=== PATIENT | male | born 1955 | race African-American/Black ===

== ENCOUNTER 2020-08-01 06:14 | Outpatient (REF) | payer MEDICARE, MEDICAID, SELFPAY | END 2020-08-01 06:15 | disposition home or self-care (01) | LOC: HO.LAB 06:14 | PROVIDERS: Visit Provider Internal Medicine | DX: Z20.828 Contact with and (suspected) exposure to other viral communicable diseases (principal) | CPT/HCPCS: C9803; U0003 ==

== ENCOUNTER 2020-08-07 11:26 | Outpatient (REF) | payer MEDICARE, MEDICAID, SELFPAY ==
--- NOTE | 2020-08-07 11:33 | XR_ITS ---
EXAMINATION: XR SHOULDER, LEFT CLINICAL INFORMATION: Left shoulder pain COMPARISON: 09/06/2018 TECHNIQUE: Three views of the left shoulder. FINDINGS: There is marked deformity of left proximal humerus and glenoid. There is remodeling of the articular surface of the humeral head and widening and flattening of the articular surface of the glenoid. There are erosive changes with joint space narrowing and multiple loose bodies. There is narrowing of the acromiohumeral interval. I suspect an erosion or geode in the region of the base of the coracoid. XR/XR shoulder LT min 2V IMPRESSION: Marked remodeling deformity with arthritic changes and loose bodies around the glenohumeral joint. There is interval worsening.
== END 2020-08-07 11:27 | disposition home or self-care (01) ==
LOC: HO.XRAY 11:26
PROVIDERS: PCP Family Medicine; Visit Provider Family Medicine
DX: M25.512 Pain in left shoulder (principal)
CPT/HCPCS: 73030

== ENCOUNTER 2020-08-08 15:33 | Outpatient (REF) | payer MEDICARE, MEDICAID, SELFPAY ==
--- NOTE | 2020-08-08 15:54 | XR_ITS ---
EXAMINATION: XR CHEST CLINICAL INFORMATION: Cough COMPARISON: November 26, 2014 TECHNIQUE: 2 views of the chest were obtained. FINDINGS: No significant abnormality is noted involving the heart, lungs, mediastinum, or soft tissues. There is prominent spurring about the thoracic spine. There is severe degenerative change involving both shoulders. XR/XR chest 2V IMPRESSION: No acute disease.
== END 2020-08-08 15:34 | disposition home or self-care (01) ==
LOC: HO.XRAY 15:33
PROVIDERS: PCP Family Medicine; Visit Provider Registered Nurse
DX: R05 Cough (principal); R09.89 Other specified symptoms and signs involving the circulatory and respiratory systems
CPT/HCPCS: 71046

== ENCOUNTER 2020-08-09 06:24 | Outpatient (REF) | payer MEDICARE, MEDICAID, SELFPAY | END 2020-08-09 06:25 | disposition home or self-care (01) | LOC: HO.LAB 06:24 | PROVIDERS: PCP Family Medicine; Visit Provider Internal Medicine | DX: Z20.828 Contact with and (suspected) exposure to other viral communicable diseases (principal) | CPT/HCPCS: C9803; U0003 ==

== ENCOUNTER 2020-10-14 09:11 | Outpatient (REF) | payer MEDICARE, MEDICAID, SELFPAY | END 2020-10-14 09:12 | disposition home or self-care (01) | LOC: HO.LAB 09:11 | PROVIDERS: PCP Family Medicine; Visit Provider Internal Medicine | DX: Z20.822 Contact with and (suspected) exposure to COVID-19 (principal) | CPT/HCPCS: 36415; C9803; U0003; U0005 ==

== ENCOUNTER 2020-12-18 09:03 | Outpatient (REF) | payer MEDICARE, MEDICAID, SELFPAY | END 2020-12-18 09:04 | disposition home or self-care (01) | LOC: HO.CT 09:03 | PROVIDERS: Visit Provider Family Medicine | DX: Z13.89 Encounter for screening for other disorder (principal) ==

== ENCOUNTER 2020-12-20 08:38 | Outpatient (REF) | payer MEDICARE, MEDICAID, SELFPAY ==
--- NOTE | ~2020-12-20 | CT_ITS ---
EXAMINATION: CT HEAD WITHOUT CONTRAST CLINICAL INFORMATION: Headaches. COMPARISON: CT brain 02/01/2020 TECHNIQUE: Contiguous axial imaging was performed from the skull base to vertex without intravenous administration of contrast. This CT examination was performed using dose optimization techniques as appropriate, variously including the following: Automated exposure control Adjustment of mA and/or kV according to patient size (this includes techniques or standardized protocols for targeted exams where dose is matched to indication/reason for exam; i.e. extremities or head) Use of iterative reconstruction technique. DLP: 864 mGy-cm FINDINGS: There is no evidence of acute intracranial hemorrhage or territorial infarction. No abnormal mass effect or midline shift is seen. Jim to white matter differentiation is well preserved. No extra-axial fluid collections are identified. Lateral ventricles are enlarged and so are the cortical sulci. There is mild periventricular hypodensity without mass effect in both cerebral hemispheres. There is partial opacification of right maxillary sinus with air-fluid level. Rest of the paranasal sinuses and mastoid air cells are well aerated. No calvarial abnormality seen. The scalp soft tissues are normal. CT/CT head/brain wo con IMPRESSION: No acute intracranial process seen. Age-related cerebral volume loss with chronic small vessel ischemic changes. Acute on chronic right maxillary sinus inflammatory changes.
== END 2020-12-20 08:39 | disposition home or self-care (01) ==
LOC: HO.CT 08:38
PROVIDERS: PCP Family Medicine; Visit Provider Family Medicine
DX: R51.9 Headache, unspecified (principal)
CPT/HCPCS: 70450

== ENCOUNTER 2021-02-19 19:09 | Emergency (ER) | payer OTHER, MEDICARE, MEDICAID, SELFPAY ==
--- NOTE | ~2021-02-19 | XR_ITS ---
EXAMINATION: XR ANKLE, RIGHT CLINICAL INFORMATION: Pain in lateral malleolus COMPARISON: None TECHNIQUE: 3 views of the right ankle. FINDINGS: Soft tissue swelling at lateral malleolus. No fracture. No dislocation. Ankle mortise is congruent. There is a plantar calcaneal spur measuring 1.8 cm. XR/XR ankle RT min 3V IMPRESSION: Soft tissue swelling at lateral malleolus. No acute osseous abnormality of the ankle.
--- NOTE | ~2021-02-19 | CT_ITS ---
EXAMINATION: CT HEAD WITHOUT CONTRAST CLINICAL INFORMATION: EtOH COMPARISON: CT head 02/01/2020 TECHNIQUE: Contiguous axial imaging was performed from the skull base to vertex without intravenous administration of contrast. Coronal and sagittal reformatted images are performed at CT scanner This CT examination was performed using dose optimization techniques as appropriate, variously including the following: *Automated exposure control *Adjustment of mA and/or kV according to patient size (this includes techniques or standardized protocols for targeted exams where dose is matched to indication/reason for exam; i.e. extremities or head) *Use of iterative reconstruction technique DLP: 818 mGy-cm FINDINGS: There is no evidence of acute intracranial hemorrhage or territorial infarction. No abnormal mass effect or midline shift is seen. Jim to white matter differentiation is well preserved. No extra-axial fluid collections are identified. The ventricles are normal in size. There is no abnormal attenuation within the brain parenchyma. The osseous structures and soft tissues are normal. Near-complete opacification of right maxillary sinus. Scattered mucosal thickening in the ethmoid sinuses and inferior frontal sinuses. CT/CT head/brain wo con IMPRESSION: 1. No acute intracranial pathology. 2. Sinus disease.
[2021-02-19 19:14] VITALS: BP 122/87; PULSE 80; O2SAT 99
[2021-02-19 19:19] VITALS: BP 130/77; PULSE 73; RESP 18; TEMP 36.7; O2SAT 97; BMI 26.6
[2021-02-19 22:11] VITALS: BP 139/7; PULSE 76; RESP 18; TEMP 36.6; O2SAT 98
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
[2021-02-19] MEDS: Ibuprofen 600 MG TABLET PO (23:05)
== END 2021-02-20 00:38 | disposition home or self-care (01) ==
PROVIDERS: Emergency Provider Emergency Medicine
DX: Z04.1 Encounter for examination and observation following transport accident (principal); M25.572 Pain in left ankle and joints of left foot
CPT/HCPCS: 70450; 73610; 99284

== ENCOUNTER 2021-04-25 08:52 | Outpatient (REF) | payer MEDICARE, MEDICAID, SELFPAY ==
--- NOTE | 2021-04-30 10:16 | MHC.AU.HAS ---
Hearing Aid Evaluation Date of Visit: 04/25/21 Historical Information: Description of Hearing: Right: Borderline to moderate sensorineural hearing loss Left: Borderline to moderately-severe sensorineural hearing loss Summary: Patient was seen for audiological evaluation (see separate chart for details). Patient is interested in amplification. Options were discussed. Hearing Aid Prescription: Based on the individual?s shared listening needs, communication environments, dexterity, desire for connectivity, and personal preferences, the following prescription for amplification has been made: Right ear: Client Service Representative: Phonak Model: Audeo P70-R Battery Size: Rechargeable Color: P1 Electrical System Specialist: 1M Left ear: Client Service Representative: Phonak Model: Audeo P70-R Battery Size: Rechargeable Color: P1 Electrical System Specialist: 1M Action Taken/Action Needed: Medical Clearance to be requested from PCP/ENT Patient will be contacted when materials have arrived. Primary Diagnosis: H90.3 Bilateral Sensorineural Hearing Loss Signature: Provider: Laura Perez, [facility]
--- NOTE | 2021-04-30 10:16 | MHC.AU.AEV ---
Adult Audiological Evaluation Date of Visit: 04/25/21 Reason for Appointment: Patient has been experiencing hearing difficulties at home. His family has noticed that he often mishears them and needs more frequent repetition. Does patient feel they have a hearing loss?: Yes If Yes, Which Ear?: Both Ears Has hearing been tested previously?: No Hearing Handicap Inventory Does a hearing problem cause you to feel embarrassed when meeting new people?: Yes Does a hearing problem cause you to feel frustrated when talking to members of your family?: Yes Do you have difficulty when someone speaks in a whisper?: Yes Do you feel handicapped by a hearing problem?: Yes Does a hearing problem cause you difficulty when visiting friends, relatives, or neighbors?: Yes Does a hearing problem cause you to attend tenriism service services less often than you would like?: No Does a hearing problem cause you to have arguments with family members?: Yes Does a hearing problem cause you difficulty when listening to TV or radio?: Yes Do you feel that any difficult with your hearing limits or hampers your personal or social life?: Yes Does a hearing problem cause you difficulty when in a restaurants with relatives or friends?: Yes HHIE SCORE: 36 Based on HHIE score, patient has: Severe perceived hearing handicap Ear History: Ear Deformity: None Reported Recent Ear Drainage: None Reported Recent Ear Pain: Left Ear Family History of Hearing Loss?: No Recent Ear Infections: None Reported Ear Infections in Childhood: None Reported History of Ear Wax Buildup: None Reported Previous Ear Surgery: None Reported Bothersome Tinnitus/Ringing/Noises in Ears: None Reported Ear used on the phone: Left Ear Blocked/Full Sensation in Ear(s): None Reported 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 History: No Medical History: Medical History: History of head injury, memory concerns Otoscopy: Right Ear: Unremarkable Left Ear: Unremarkable Tympanometry: Tympanometry performed due to: To assess integrity of the middle ear system Right Ear: Normal Middle Ear System (Type A) Left Ear: Normal Middle Ear System (Type A) Hearing Evaluation: Transducer(s) Used: Insert Earphones Method: Conventional Audiometry Stimuli Used: Pure Tones Right Ear: Description of Hearing: Borderline to moderate sensorineural hearing loss Left Ear: Description of Hearing: Borderline to moderately-severe sensorineural hearing loss Speech Recognition Threshold (SRT): Method Used: Recorded Lists Stimuli Used: Spondee Words Right Ear: 30 dBHL Left Ear: 40 dBHL Word Discrimination: Method: Recorded Lists Word Lists Used:: W-22 Right Ear: 88% at 70 dBHL Left Ear: 68% at 70 dBHL Most Comfortable Level (MCL): Right Ear: 70 dBHL Left Ear: 70 dBHL Recommendations: Audiological re-evaluation in one year. Trial with amplification is recommended. See Hearing Aid Evaluation report for more information. Referral to Ear, Nose, and Throat is recommended to address sensorineural asymmetry (left ear worse). Diagnosis: Primary Diagnosis: H90.3 Bilateral Sensorineural Hearing Loss Signature: Provider: Laura Perez, CCC-A
--- NOTE | 2021-04-30 10:18 | MHC.AU.MED ---
Medical Clearance for Hearing Instrumentation Date: 04/30/21 Patient Name: Iván Yanez III Date of : 1955 Primary Care Provider: Karmen Girard DO Referring Provider: Karmen Girard DO We have seen your patient on 04/25/21 and have determined that they are a candidate for amplification (See accompanying report). Specifically, they would benefit from: Hearing aid use in both ears There is a statute that addresses Medical Evaluation Requirements prior to fitting a patient with a hearing aid. According to [place] statute 265 CMR:6.03(1), (a) General. Except as provided in 265 CMR 6.03(1)(b), a chemistry physics teacher shall not sell a hearing aid unless the prospective user has presented to the chemistry physics teacher a written statement signed by a licensed physician that states that the patient's hearing loss has been medically evaluated and the patient may be considered a candidate for a hearing aid. The medical evaluation must have taken place within the preceding six months. Please note: Due to the [place] Statute referenced above, we cannot accept a signature other than that of a licensed physician. PEER TUTOR and PA signatures cannot be accepted. I am in agreement with the above recommendation. There is no medical contraindication for hearing instrumentation. Physician Signature Date Physician Name (Printed)
== END 2021-04-25 08:53 | disposition home or self-care (01) ==
LOC: HO.SH 08:52
PROVIDERS: PCP Family Medicine; Visit Provider Family Medicine
DX: H90.3 Sensorineural hearing loss, bilateral (principal)
CPT/HCPCS: 92557; 92567; 92591

== ENCOUNTER 2021-05-29 10:36 | Outpatient (REF) | payer MEDICARE, MEDICAID, SELFPAY ==
--- NOTE | 2021-05-30 08:22 | MHC.AU.HFA ---
Hearing Instrument Fitting- Adult- Binaural Date of Visit: 05/29/21 Hearing Instruments Dispensed: Right Ear: Hand Woven Carpet And Rug Mender: Phonak Model: Audeo P70-R Serial Number: [id number] Repair Warranty: 08/09/2024 Loss and Damage Warranty: 08/09/2024 Service Plan: 05/29/2022 Battery Size: Rechargeable Color: P1 Relief Pilot: 1M Type of Dome: Small Vented Dome Type of Wax Guard: CeruShield Left Ear: Hand Woven Carpet And Rug Mender: Phonak Model: Audeo P70-R Serial Number: [id number] Repair Warranty: 08/09/2024 Loss and Damage Warranty: 08/09/2024 Service Plan: 05/29/2022 Battery Size: Rechargeable Color: P1 Relief Pilot: 1M Type of Dome: Small Vented Dome Type of Wax Guard: CeruShield Summary of Fitting: Feedback credit manager run. Verifit performed and levels adjusted to better reach targets. Target gain set to 95%, as patient felt 100% was slightly too loud. Patient reported the sound was comfortable and clear. Hearing aid care and use were discussed and practiced. Hearing aids were paired to the patient's phone. Recommendations: Recommendations: A hearing instrument follow-up is recommended in 2-3 weeks. Diagnosis Code(s): Primary Diagnosis: H90.3 Bilateral Sensorineural Hearing Loss Signature: Provider: Laura Perez, [facility]
== END 2021-05-29 10:37 | disposition home or self-care (01) ==
LOC: HO.HAP 10:36
PROVIDERS: Visit Provider Family Medicine
DX: Z46.1 Encounter for fitting and adjustment of hearing aid (principal); H90.3 Sensorineural hearing loss, bilateral
CPT/HCPCS: V5011; V5020; V5160; V5261

== ENCOUNTER → 2021-06-12 11:51 | Outpatient (BNVA) | payer MEDICARE, MEDICAID, SELFPAY | PROVIDERS: PCP Family Medicine; Visit Provider Urology | DX: C61 Malignant neoplasm of prostate (principal) | CPT/HCPCS: Q3014 ==

== ENCOUNTER 2021-07-02 11:06 | Outpatient (REF) | payer MEDICARE, MEDICAID, SELFPAY ==
--- NOTE | 2021-07-02 13:26 | MHC.AU.HFU ---
Hearing Instrument Follow-Up- Binaural Date of Visit: 07/02/21 Right Ear: Radiator Tester: Phonak Model: Audeo P70-R Serial Number: [id number] Repair Warranty: 08/09/2024 Loss and Damage Warranty: 08/09/2024 Service Plan: 05/29/2022 Battery Size: Rechargeable Color: P1 Liquor Merchant: 1M Type of Dome: Small Vented Dome Type of Wax Guard: CeruShield Left Ear: Radiator Tester: Phonak Model: Audeo P70-R Serial Number: [id number] Repair Warranty: 08/09/2024 Loss and Damage Warranty: 08/09/2024 Service Plan: 05/29/2022 Battery Size: Rechargeable Color: P1 Liquor Merchant: 1M Type of Dome: Small Vented Dome Type of Wax Guard: CeruShield Follow-Up Summary: Patient reports that he accidentally lost the left hearing aid. He had placed it in his pocket and was unable to find it after a thorough search of his residence and clothes. He also reports that the right hearing aid is not working. He does not see the light go on in the weigher and charger. The right hearing aid was inspected. There was no charge in the instrument. It was placed in a stock weigher and charger for several minutes. The light did turn on when it was in the stock weigher and charger, and the hearing aid was able to turn on after charging for a few minutes. It is uncertain if the instrument was not charging at home because of a problem with the charging unit, or if perhaps it had come unplugged at home or the patient was placing it in the weigher and charger incorrectly. A constant static noise was being emitted from the instrument when it was turned on. A livestock dealer was tried, but it still produced the sound. The right hearing aid will be sent for repair. A loss and damage form was filled out for the left hearing aid and e-mailed to [employer]. Recommendations: When the repaired right instrument and replacement left instrument have arrived, patient can be contacted to schedule an appointment. It is highly recommended that he bring his weigher and charger to the next visit so we can determine whether or not there is a problem with the weigher and charger. Diagnosis Code(s): Primary Diagnosis: H90.3 Bilateral Sensorineural Hearing Loss Signature: Provider: Laura Perez, [facility]
== END 2021-07-02 11:07 | disposition home or self-care (01) ==
LOC: HO.HAP 11:06
PROVIDERS: Visit Provider Family Medicine
DX: Z13.89 Encounter for screening for other disorder (principal)

== ENCOUNTER 2021-07-21 12:35 | Outpatient (REF) | payer MEDICARE, MEDICAID, SELFPAY | END 2021-07-21 12:36 | disposition home or self-care (01) | LOC: HO.HAP 12:35 | PROVIDERS: Visit Provider Family Medicine | DX: Z13.89 Encounter for screening for other disorder (principal) ==

== ENCOUNTER → 2021-07-29 15:05 | Outpatient (BNVA) | payer MEDICARE, MEDICAID, SELFPAY | PROVIDERS: PCP Family Medicine; Visit Provider Urology | DX: Z13.89 Encounter for screening for other disorder (principal) | CPT/HCPCS: Q3014 ==

== ENCOUNTER 2021-10-02 12:15 | Emergency (ER) | payer MEDICARE, MEDICAID, SELFPAY ==
--- NOTE | ~2021-10-02 | XR_ITS ---
EXAMINATION: XR SHOULDER, LEFT CLINICAL INFORMATION: Fall with pain COMPARISON: Left shoulder x-rays 08/07/2020 TECHNIQUE: 3 views of the left shoulder. FINDINGS: Minimally displaced fracture of the left humeral neck. There is approximately 1.5 cm of impaction with less than 1 cm of lateral offset of the distal fracture fragment. The left humeral head continues to demonstrate good articulation with the glenoid fossa, however, there are severe chronic arthritic changes and remodeling deformities of the left glenohumeral joint with several associated loose bodies. The left acromioclavicular joint demonstrates only mild degenerative changes. Visualized left-sided ribs and lung parenchyma are unremarkable. XR/XR shoulder LT min 2V IMPRESSION: Left humeral neck fracture.
[2021-10-02 12:34] VITALS: BP 124/72; PULSE 67; RESP 18; TEMP 37.2; O2SAT 98; BMI 25.8
--- NOTE | 2021-10-02 12:46 | ED_ITS ---
HPI - Fall General Chief Complaint: Fall Stated Complaint: Fall/shoulder pain Time Seen by Provider: 10/02/21 12:46 Source: patient and family Mode of arrival: ambulatory Limitations: no limitations History of Present Illness HPI Narrative: 66-year-old male here with reports of left shoulder pain after a trip and fall which occurred earlier today. Patient tells me he was walking on the street when he tripped over something on the ground landing on the left shoulder. There was no hitting of the head or loss of consciousness. Patient denies any weakness, numbness, tingling, warmth or redness Related Data Home Medications Medication Instructions Recorded Confirmed atorvastatin 20 mg tablet mg PO 06/12/21 06/12/21 fluticasone propionate 50 INTRANASAL 06/12/21 06/12/21 mcg/actuation nasal spray,suspension hydroxyzine pamoate 25 mg capsule mg PO 06/12/21 06/12/21 metoprolol succinate 50 mg mg PO 06/12/21 06/12/21 tablet,extended release 24 hr naloxone 4 mg/actuation nasal INTRANASAL 06/12/21 06/12/21 spray (Narcan) oxycodone-acetaminophen 5 mg-325 tab PO 06/12/21 06/12/21 mg tablet sertraline 50 mg tablet mg PO 06/12/21 06/12/21 tamsulosin 0.4 mg capsule mg PO 06/12/21 06/12/21 timolol maleate 0.5 % eye drops drp OPHTHALMIC (EYE) 06/12/21 06/12/21 Previous Rx's Medication Instructions Recorded ibuprofen 600 mg tablet 600 mg PO TID PRN #14 tab 02/20/21 bicalutamide 50 mg tablet 50 mg PO DAILY 30 Days #30 tab 03/25/21 naproxen 500 mg tablet 500 mg PO BID PRN #20 tab 10/02/21 Allergies Allergy/AdvReac Type Severity Reaction Status Date / Time codeine [CODEINE] Allergy Unknown BECOMES Verified 07/29/21 15:08 HYPER, ITCHY, itching Codeine Sulfate Allergy Unknown Unknown Uncoded 07/29/21 15:08 Review of Systems Verdana 4l Review of Systems: Yes all other systems are reviewed and Verdana 4d are negative Verdana 4l Constitutional: Verdana 4d Constitutional: Verdana 4d Verdana 4d Reports no additional constitutional complaints, Denies body ache(s), Denies chills, Denies fever(s), Denies headache(s) and Denies weakness Verdana 4l Eyes: Verdana 4d Verdana 4d Eyes: Verdana 4d Reports no additional eye complaints and Denies change in vision Verdana 4l ENT: Verdana 4d Reports system reviewed and no additional complaints, except as documented, Denies dizziness, Denies headache(s), Denies nasal congestion, Denies nasal discharge and Denies neck pain Verdana 4l Cardiovascular: Verdana 4d Cardiovascular: Verdana 4d Verdana 4d Reports no additional cardiovascular complaints, Denies chest pain, Denies leg edema and Denies dyspnea Verdana 4l Respiratory: Verdana 4d Verdana 4d Respiratory: Verdana 4d Reports no additional respiratory complaints, Denies cough and Denies dyspnea Verdana 4l Gastrointestinal: Verdana 4d Gastrointestinal: Verdana 4d Verdana 4d Reports no additional gastrointestinal complaints, Denies abdominal pain, Denies diarrhea, Denies nausea and Denies vomiting Verdana 4l Genitourinary: Verdana 4d Verdana 4d Genitourinary: Verdana 4d Denies urinary incontinence Verdana 4l Musculoskeletal: Verdana 4d Musculoskeletal: Verdana 4d Verdana 4d Reports no additional musculoskeletal complaints, Denies back pain, Reports arthralgias, Denies joint swelling, Reports limited range of motion, Denies neck pain, Denies numbness and Denies tingling Verdana 4l Integumentary/Breasts: Verdana 4d Skin/Breast: Verdana 4d Verdana 4d Reports system reviewed and no additional complaints, except as docu and Denies rash Verdana 4l Neurologic: Verdana 4d Reports system reviewed and no additional complaints, except as documented, Denies Abnormal speech present, Denies dizziness, Denies headache(s), Denies numbness, Denies tingling and Denies weakness PMFSH Past Medical History Attestation statement: The following information was validated with the patient. Source: old records reviewed and nursing notes reviewed Medical History HTN (hypertension) Hx of dislocation of shoulder Prostate cancer Seasonal allergies Surgical History History of surgery Social History Social History Advance Directives: No Advance Directives Information Provided: Yes Physical Exam Verdana 4l Vital Signs: Verdana 4d Verdana 4d Vital Signs: Verdana 4d Verdana 4Bd Last Vital Signs Verdana 4d Paralegal Secretary New 4d Paralegal Secretary New 4d Temp 98.9 F 10/02/21 12:34 Paralegal Secretary New 4d Pulse 67 10/02/21 12:34 Paralegal Secretary New 4d Resp 18 10/02/21 12:34 BP 124/72 10/02/21 12:34 Pulse Ox 98 10/02/21 12:34 BMI result Body Mass Index 25.8 Const: General: cooperative, healthy appearing, comfortable and no acute distress Orientation/consciousness: patient oriented x3 Limitations: no limitations HENMT: Head: Yes normal to inspection Ears: hearing grossly normal bilaterally General nose exam: Normal external nose present Face and sinus: Yes normal facial exam Mouth: Normal oral and palatal mucosa present Throat: Yes posterior oropharynx normal Eyes: General: appearance normal, both eyes and all related structures Pupils: Eq ual, round and reactive pupils present Neck: Neck: Yes normal visual inspection Chest: Chest palpation & inspection: normal inspection of the chest Resp: Effort & Inspection: normal respiratory effort Auscultation: clear to auscultation bilaterally Cardio: Rate: regular rate Rhythm: regular rhythm Peripheral pulses: Peripheral pulses 2+ throughout GI: Inspection: Yes normal to inspection Palpation (GI): Soft to palpation and nontender Auscultation: normal bowel sounds Back/Spine/Pelvis: Thoracic/Lumbar Spine: thoracic and lumbar spine normal to inspection Skin: General skin exam: no rashes or lesions noted Neuro: General: patient oriented x3, no focal motor deficits and normal sensation to monofilament Cranial nerves: Yes CN's II-XII intact bilaterally, Yes Equal, round and reactive pupils present, Yes Bilaterally intact EOM present, Yes Nystagmus not present, Yes Normal facial strength present and Yes Midline tongue present Cognition (Neuro): normal cognition Speech: No Abnormal speech present Gait exam (Neuro): Normal gait present Motor exam (neuro): 5/5 motor strength present throughout Sensory Exam: Normal double simultaneous stimulation for sensation Extrem: Other: Tenderness over the anterior shoulder and proximal humerus with limited abduction due to pain. No obvious swelling or deformity. Neurovascular intact distally to the injury General: Yes normal to inspection Course Course Course Narrative: 66-year-old male here with reports of left shoulder pain after trip and a fall which occurred just prior to arrival. Will check x-rays 1445-[id number]-ray show left humeral neck fracture. Patient placed in a sling and have him follow-up with Orthopedics. Reviewed worrisome signs and symptoms with the patient and the family and when to return to the emergency department. Reviewed rice. Comfortable plan for discharge home. Procedures Procedure Narrative Procedure Narrative: Sling MDM - Fall Medical Records Attestation: I reviewed the patient's medical records. Lab Data Attestation: I reviewed the patient's lab results. Imaging Data shoulder xray: Attestation: I personally reviewed and interpreted this imaging study as follows: Radiologist's impression: FINDINGS: Minimally displaced fracture of the left humeral neck. There is approximately 1.5 cm of impaction with less than 1 cm of lateral offset of the distal fracture fragment. The left humeral head continues to demonstrate good articulation with the glenoid fossa, however, there are severe chronic arthritic changes and remodeling deformities of the left glenohumeral joint with several associated loose bodies. The left acromioclavicular joint demonstrates only mild degenerative changes. Visualized left-sided ribs and lung parenchyma are unremarkable. XR/XR shoulder LT min 2V IMPRESSION: Left humeral neck fracture. Discharge Plan Discharge Clinical Impression: Fracture, humerus closed Patient Disposition: Home, Self-Care Instructions: Arm Fracture in Adults (ED), How to Use a Sling (ED) Additional Instructions: Use a sling for comfort Ice to the area Limit use of the left arm Follow-up with Orthopedics Alternate Tylenol with naproxen for pain Prescriptions: New naproxen 500 mg tablet 500 mg PO BID PRN (Reason: pain) Qty: 20 0RF No Action bicalutamide 50 mg tablet 50 mg PO DAILY 30 Days Qty: 30 1RF ibuprofen 600 mg tablet 600 mg PO TID PRN (Reason: pain) Qty: 14 0RF hydroxyzine pamoate 25 mg capsule PO 0RF sertraline 50 mg tablet PO 0RF fluticasone propionate 50 mcg/actuation spray,suspension intranasal 0RF tamsulosin 0.4 mg capsule PO 0RF metoprolol succinate 50 mg tablet extended release 24 hr PO 0RF atorvastatin 20 mg tablet PO 0RF timolol maleate 0.5 % drops ophthalmic (eye) 0RF Narcan 4 mg/actuation spray,non-aerosol intranasal 0RF oxycodone-acetaminophen 5-325 mg tablet PO 0RF Referrals: Hermilo Friend MD [Physician] - 2 days Interventions: ED Discharge Assessment Last Done: 10/02/21 14:19 Discharge Date/Time: 10/02/21 14:21
== END 2021-10-02 14:21 | disposition home or self-care (01) ==
PROVIDERS: Emergency Provider Emergency Medicine; PCP Family Medicine
DX: S42.212A Unspecified displaced fracture of surgical neck of left humerus, initial encounter for closed fracture (principal); W01.198A Fall on same level from slipping, tripping and stumbling with subsequent striking against other object, initial encounter; Y93.01 Activity, walking, marching and hiking; Y92.480 Sidewalk as the place of occurrence of the external cause; Y99.9 Unspecified external cause status
CPT/HCPCS: 73030; 99284

== ENCOUNTER 2021-10-03 17:40 | Inpatient (IN) | payer MEDICARE, MEDICAID, SELFPAY ==
--- NOTE | ~2021-10-03 | US_ITS ---
EXAMINATION: US VENOUS WITH DOPPLER UPPER EXTREMITY, LEFT CLINICAL INFORMATION: Left upper arm swelling. COMPARISON: None TECHNIQUE: Ultrasound of the upper extremity is performed using compression sonography and color and pulse Doppler flow with assessment of augmentation of flow. There is also imaging and Doppler assessment of the jugular and subclavian veins. Spectral analysis with color-flow imaging is performed. FINDINGS: Respiratory variation, normal compression, and augmented flow are noted throughout the upper extremity including the axillary, and brachial veins. Please note that the basilic, cephalic and ulnar veins are not well-visualized accordingly not evaluated. There is normal flow in the internal jugular and subclavian veins. There is no visible deep or superficial thrombophlebitis. If the patient's symptoms progress, a followup ultrasound in 5 -7 days might be of value to exclude proximal propagation from a nonvisualized distal arm vein. US/US venous duplex UE LT IMPRESSION: No DVT demonstrated in the left upper extremity. Please note that the basilic, cephalic and ulnar veins are not well-visualized accordingly not evaluated.
--- NOTE | ~2021-10-03 | XR_ITS ---
EXAMINATION: XR CHEST CLINICAL INFORMATION: Shortness of breath. COMPARISON: Chest radiograph dated from 08/08/2020. TECHNIQUE: AP view of the chest was obtained. FINDINGS: Normal appearance of the cardiomediastinal silhouette. No focal airspace opacities, pleural effusions or pneumothorax. Severe osteoarthritis of the shoulders. XR/XR chest 1V IMPRESSION: No acute cardiopulmonary findings. Severe osteoarthritis of both shoulders.
--- NOTE | ~2021-10-03 | CT_ITS ---
EXAMINATION: NONCONTRAST HEAD CT NONCONTRAST CERVICAL SPINE CT INDICATION INFORMATION: Altered mental status, fall COMPARISON: 02/19/2021 TECHNIQUE: Separate noncontrast CT examinations of the head and cervical spine were performed. Coronal head CT images and coronal and sagittal cervical spine images were created at the technologist workstation. DLP: 2914 mGy-cm DOSE LOWERING TECHNIQUES: This CT examination was performed using dose optimization techniques as appropriate, variously including the following: - Automated exposure control - Adjustment of mA and/or kV according to patient size (this includes techniques or standardized protocols for targeted exams were dose is matched to indication/reason for exam; i.e. extremities or head) - Use of iterative reconstruction technique FINDINGS: Head: Limited evaluation in some regions due to patient motion artifact. There is no evidence of acute intracranial hemorrhage or territorial infarction. No abnormal mass-effect or midline shift is seen. Jim to white matter differentiation is well preserved. No extra-axial fluid collections are identified. The ventricles are normal in size. There is no abnormal attenuation within the brain parenchyma. The osseous structures and soft tissues are normal. Mucous retention cysts noted in the right maxillary sinus. The mastoid air cells are well-aerated. Cervical spine: Significantly limited detailed evaluation of much of the cervical spine due to motion artifact. There is anatomic alignment of the vertebral bodies and posterior elements. Vertebral body heights are maintained. There is diffuse disc space narrowing throughout the cervical spine with associated degenerative endplate changes. There is moderate multilevel facet arthropathy. No evidence of acute fracture. No prevertebral soft tissue swelling. Visualized portions of the lung apices are unremarkable. The thyroid gland is unremarkable. CT/CT cervical spine wo con IMPRESSION: Significantly limited detailed assessment of regions of the head and cervical spine due to patient motion artifact. While no gross acute abnormality is seen, more subtle pathology cannot be reliably excluded in this setting.
--- NOTE | ~2021-10-03 | XR_ITS ---
EXAMINATION: XR HUMERUS, LEFT CLINICAL INFORMATION: Swelling. Humeral fracture. COMPARISON: October 02, 2021 and August 07, 2020 TECHNIQUE: AP and lateral views of the left humerus. FINDINGS: There is stable appearance in alignment and appearance of a proximal left humeral fracture compared to study of October 02, 2021. There is severe degenerative change with flattening of the humeral head and marginal sclerosis and spurring with subchondral cyst formation about the glenohumeral joint. The lateral view is not true lateral however there does not appear to be a left elbow effusion. XR/XR humerus LT IMPRESSION: Stable alignment of proximal left humeral fracture. Severe degenerative change as described.
--- NOTE | ~2021-10-03 | CT_ITS ---
EXAMINATION: CT HEAD WITHOUT CONTRAST CLINICAL INFORMATION: Altered mental status COMPARISON: 10/04/2021 TECHNIQUE: Contiguous axial imaging was performed from the skull base to vertex without intravenous administration of contrast. This CT examination was performed using dose optimization techniques as appropriate, variously including the following: *Automated exposure control *Adjustment of mA and/or kV according to patient size (this includes techniques or standardized protocols for targeted exams where dose is matched to indication/reason for exam; i.e. extremities or head) *Use of iterative reconstruction technique DLP: 818 mGy-cm FINDINGS: There is no evidence of acute intracranial hemorrhage or territorial infarction. No abnormal mass effect or midline shift is seen. Jim to white matter differentiation is well preserved. No extra-axial fluid collections are identified. The ventricles are normal in size. Mild volume loss is noted. The osseous structures and soft tissues are normal. There is mild opacification of the right mastoid air cells. Partially opacified bilateral ethmoid air cells. Mucous retention cysts are noted in the right maxillary sinus. Partially opacified left frontal sinus. CT/CT head/brain wo con IMPRESSION: No acute intracranial findings.
[2021-10-03 18:01] VITALS: BP 135/75; PULSE 77; RESP 18; TEMP 37; O2SAT 100; BMI 25.8
[2021-10-03 20:38] LABS: Basophils Percent Auto 0.1 % (0-2); Eosinophils Percent Auto 0.1 % (0-4); Hematocrit 32.6 % (42.0-52.0); Hemoglobin 10.3 g/dl (14.0-18.0); Imm Gran Abs Auto 0.05 X10*3/uL (0.00-0.03); Imm Gran Pct Auto 0.4 % (0.0-0.4); Lymphocytes Absolute Auto 2.5 X10*3/uL (1.2-4.9); Lymphocytes Percent Auto 17.4 % (20-40); MANUAL DIFF FLAG SCAN; Mean Corpuscular HGB Conc 31.6 g/dl (31.0-36.0); Mean Corpuscular Hemoglobin 28.8 pg (27.0-33.0); Mean Corpuscular Volume 91.1 fL (80.0-98.0); Mean Platelet Volume 9.7 fL (9.4-12.4); Monocytes Percent Auto 14.4 % (2-11); Neutrophils Absolute Auto 9.6 x10*3/uL (2.0-8.3); Neutrophils Percent Auto 67.6 % (45-73); Platelet Count 206 X10*3/uL (160-400); Red Blood Count 3.58 X10*6/uL (4.60-5.80); SCAN SMEAR FLAG 1; White Blood Count 14.2 X10*3/uL (4.8-10.8)
[2021-10-03 20:56] LABS: SLIDE REVIEW VERIFIED
--- NOTE | 2021-10-03 21:47 | PC.NURSE ---
difficult lab draw
--- NOTE | 2021-10-03 23:23 | ED_ITS ---
HPI - Altered Mental Status General Chief Complaint: Altered Mental Status Stated Complaint: confusion since yesterday fall Time Seen by Provider: 10/03/21 18:03 History of Present Illness HPI narrative: 66-year-old male with a long history of alcohol abuse. Patient fell yesterday. Subsequently had not been drinking alcohol for at least the last 24 hours. Patient suffered a proximal humerus fracture. Unsure about head injury. No coughing no congestion or upper respiratory symptoms. Patient not immunized for COVID. Patient from home. No fever no chills. Son noticed patient more confused than usual. Hallucinating things in his hands things touching him when it does not exist. Noticing PE patient has been talking to people that are not there. This is new. Son also notice patient more shaky than usual. Related Data Home Medications Medication Instructions Recorded Confirmed atorvastatin 20 mg tablet mg PO 06/12/21 06/12/21 fluticasone propionate 50 INTRANASAL 06/12/21 06/12/21 mcg/actuation nasal spray,suspension hydroxyzine pamoate 25 mg capsule mg PO 06/12/21 06/12/21 metoprolol succinate 50 mg mg PO 06/12/21 06/12/21 tablet,extended release 24 hr naloxone 4 mg/actuation nasal INTRANASAL 06/12/21 06/12/21 spray (Narcan) oxycodone-acetaminophen 5 mg-325 tab PO 06/12/21 06/12/21 mg tablet sertraline 50 mg tablet mg PO 06/12/21 06/12/21 tamsulosin 0.4 mg capsule mg PO 06/12/21 06/12/21 timolol maleate 0.5 % eye drops drp OPHTHALMIC (EYE) 06/12/21 06/12/21 Previous Rx's Medication Instructions Recorded ibuprofen 600 mg tablet 600 mg PO TID PRN #14 tab 02/20/21 bicalutamide 50 mg tablet 50 mg PO DAILY 30 Days #30 tab 03/25/21 naproxen 500 mg tablet 500 mg PO BID PRN #20 tab 10/02/21 Allergies Allergy/AdvReac Type Severity Reaction Status Date / Time codeine [CODEINE] Allergy Unknown BECOMES Verified 07/29/21 15:08 HYPER, ITCHY, itching Codeine Sulfate Allergy Unknown Unknown Uncoded 07/29/21 15:08 Review of Systems Verdana 4l Review of Systems: Verdana 4d Positive altered mental Verdana 4d status positive shakiness positive palpitation positive confusion unable to obtain full review systems secondary to patient's condition Verdana 4d [facility] Past Medical History Attestation statement: The following information was validated with the patient. Medical History HTN (hypertension) Hx of dislocation of shoulder Prostate cancer Seasonal allergies Surgical History History of surgery Social History Social History Advance Directives: No Advance Directives Information Provided: No Physical Exam Verdana 4l Vital Signs: Verdana 4d Verdana 4d Vital Signs: Verdana 4d Verdana 4Bd Last Vital Signs Verdana 4d Sas Clinical Programmer New 4d Sas Clinical Programmer New 4d Temp 98.6 F 10/03/21 18:01 Sas Clinical Programmer New 4d Pulse 89 10/04/21 00:35 Sas Clinical Programmer New 4d Resp 14 10/04/21 00:35 BP 146/67 H 10/04/21 00:35 Pulse Ox 97 10/04/21 00:35 BMI result Body Mass Index 25.8 Appearance: Alert. Oriented to self. No acute distress. Eyes: Pupils equal, round and reactive to light. ENT: Pharynx normal. Neck: Normal inspection. Neck supple. No lymph nodes noted. No crepitus CVS: Tachycardic but regular Respiratory: clear breath sounds bilaterally Abdomen: soft nontender, nondistended Skin: Skin warm and dry. Normal skin color. Normal skin turgor. Extremities: No lower extremity edema. Neurovascular intact to all extremities. No Lacerations. No Rash Neuro: oriented to self only. tremors noted bilateral extremity. Positive tactile hallucination. Tremors speech. MDM - Altered Mental Status MDM Narrative Medical decision making narrative: Creatinine elevated at 2.28 slightly higher than baseline 1.8. Patient's sodium was 128. Patient has a long history of alcohol abuse. Stop using approximately 24-48 hours ago after suffering a fall and had a humerus fracture. CT scan of the head was grossly negative for any acute evidence of bleeding. CT scan of C-spine is of poor quality but no overt fracture was noted. Patient given Ativan for alcohol withdrawal. Started on phenobarb. Will admit for further evaluation. Differential Diagnosis Differential diagnosis: Likely alcoholic intoxication, altered mental status and delirium Medical Records Attestation: I reviewed the patient's medical records. Lab Data Attestation: I reviewed the patient's lab results. Result diagrams: 10/03/21 20:31 10/04/21 00:16 Labs: Lab Results 10/03/21 10/03/21 10/03/21 Range/Units 20:31 23:27 23:34 WBC 14.2 H (4.8-10.8) X10*3/uL RBC 3.58 L (4.60-5.80) X10*6/uL Hgb 10.3 L (14.0-18.0) g/dl Hct 32.6 L (42.0-52.0) % MCV 91.1 (80.0-98.0) fL MCH 28.8 (27.0-33.0) pg MCHC 31.6 (31.0-36.0) g/dl RDW 14.0 (11.0-16.0) % Plt Count 206 (160-400) X10*3/uL MPV 9.7 (9.4-12.4) fL Immature Gran % (Auto) 0.4 (0.0-0.4) % Neut % (Auto) 67.6 (45-73) % Lymph % (Auto) 17.4 L (20-40) % Lake % (Auto) 14.4 H (2-11) % Eos % (Auto) 0.1 (0-4) % Baso % (Auto) 0.1 (0-2) % Lymph # (Auto) 2.5 (1.2-4.9) X10*3/uL Lake # (Auto) 2.0 H (0.1-1.2) X10*3/uL Eos # (Auto) 0.0 (0.0-0.4) X10*3/uL Baso # (Auto) 0.0 (0.0-0.2) X10*3/uL Abs Immat Gran (auto) 0.05 H (0.00-0.03) X10*3/uL Absolute Neuts (auto) 9.6 H (2.0-8.3) x10*3/uL Absolute Nucleated RBC 0.000 (0.0-0.012) X10*3/uL Nucleated RBC % (auto) 0.0 (0.0-0.2) /100WBC Smear Tech's Comments VERIFIED PT (9.9-13.0) SEC INR (0.9-1.1) Sodium (135-145) mmol/L Potassium (3.3-5.1) mmol/L Chloride (96-108) mmol/L Carbon Dioxide (22-29) mmol/L Anion Gap (12-20) BUN (9-16) mg/dL Creatinine (0.5-1.4) mg/dL Estim Creat Clear Calc Estimated GFR POC Glucose 102 (60-115) mg/dL Random Glucose (60-115) mg/dL Calcium (8.4-10.2) mg/dL Phosphorus (2.7-4.5) mg/dL Magnesium (1.6-2.6) mg/dL Total Bilirubin (0.0-1.0) mg/dL Direct Bilirubin (0.0-0.5) mg/dL AST (5-37) U/L ALT (0-40) U/L Alkaline Phosphatase (39-117) U/L Ammonia (13-55) umol/L Troponin I High Sens 10.4 (<3.5-35.0) ng/L Total Protein (6.5-8.0) g/dL Albumin (3.5-5.0) g/dL Lipase (8-78) U/L TSH (0.32-4.0) uIU/mL Ethyl Alcohol mg/dL COVID-19 (TIGRE) (Negative) COVID-19 Clin Com 10/03/21 10/03/21 10/03/21 Range/Units 23:34 23:34 23:34 WBC (4.8-10.8) X10*3/uL RBC (4.60-5.80) X10*6/uL Hgb (14.0-18.0) g/dl Hct (42.0-52.0) % MCV (80.0-98.0) fL MCH (27.0-33.0) pg MCHC (31.0-36.0) g/dl RDW (11.0-16.0) % Plt Count (160-400) X10*3/uL MPV (9.4-12.4) fL Immature Gran % (Auto) (0.0-0.4) % Neut % (Auto) (45-73) % Lymph % (Auto) (20-40) % Lake % (Auto) (2-11) % Eos % (Auto) (0-4) % Baso % (Auto) (0-2) % Lymph # (Auto) (1.2-4.9) X10*3/uL Lake # (Auto) (0.1-1.2) X10*3/uL Eos # (Auto) (0.0-0.4) X10*3/uL Baso # (Auto) (0.0-0.2) X10*3/uL Abs Immat Gran (auto) (0.00-0.03) X10*3/uL Absolute Neuts (auto) (2.0-8.3) x10*3/uL Absolute Nucleated RBC (0.0-0.012) X10*3/uL Nucleated RBC % (auto) (0.0-0.2) /100WBC Smear Tech's Comments PT 12.4 (9.9-13.0) SEC INR 1.1 (0.9-1.1) Sodium (135-145) mmol/L Potassium (3.3-5.1) mmol/L Chloride (96-108) mmol/L Carbon Dioxide (22-29) mmol/L Anion Gap (12-20) BUN (9-16) mg/dL Creatinine (0.5-1.4) mg/dL Estim Creat Clear Calc Estimated GFR POC Glucose (60-115) mg/dL Random Glucose (60-115) mg/dL Calcium (8.4-10.2) mg/dL Phosphorus (2.7-4.5) mg/dL Magnesium (1.6-2.6) mg/dL Total Bilirubin (0.0-1.0) mg/dL Direct Bilirubin (0.0-0.5) mg/dL AST (5-37) U/L ALT (0-40) U/L Alkaline Phosphatase (39-117) U/L Ammonia 21 (13-55) umol/L Troponin I High Sens (<3.5-35.0) ng/L Total Protein (6.5-8.0) g/dL Albumin (3.5-5.0) g/dL Lipase (8-78) U/L TSH (0.32-4.0) uIU/mL Ethyl Alcohol mg/dL COVID-19 ([facility]) Negative (Negative) COVID-19 Clin Com See Note 10/04/21 10/04/21 Range/Units 00:16 23:34 WBC (4.8-10.8) X10*3/uL RBC (4.60-5.80) X10*6/uL Hgb (14.0-18.0) g/dl Hct (42.0-52.0) % MCV (80.0-98.0) fL MCH (27.0-33.0) pg MCHC (31.0-36.0) g/dl RDW (11.0-16.0) % Plt Count (160-400) X10*3/uL MPV (9.4-12.4) fL Immature Gran % (Auto) (0.0-0.4) % Neut % (Auto) (45-73) % Lymph % (Auto) (20-40) % Lake % (Auto) (2-11) % Eos % (Auto) (0-4) % Baso % (Auto) (0-2) % Lymph # (Auto) (1.2-4.9) X10*3/uL Lake # (Auto) (0.1-1.2) X10*3/uL Eos # (Auto) (0.0-0.4) X10*3/uL Baso # (Auto) (0.0-0.2) X10*3/uL Abs Immat Gran (auto) (0.00-0.03) X10*3/uL Absolute Neuts (auto) (2.0-8.3) x10*3/uL Absolute Nucleated RBC (0.0-0.012) X10*3/uL Nucleated RBC % (auto) (0.0-0.2) /100WBC Smear Tech's Comments PT (9.9-13.0) SEC INR (0.9-1.1) Sodium 128 L (135-145) mmol/L Potassium 4.2 (3.3-5.1) mmol/L Chloride 100 (96-108) mmol/L Carbon Dioxide 19 L (22-29) mmol/L Anion Gap 13 (12-20) BUN 39 H (9-16) mg/dL Creatinine 2.28 H (0.5-1.4) mg/dL Estim Creat Clear Calc 29.7 Estimated GFR 29 POC Glucose (60-115) mg/dL Random Glucose 101 (60-115) mg/dL Calcium 8.9 (8.4-10.2) mg/dL Phosphorus 2.4 L (2.7-4.5) mg/dL Magnesium 1.6 (1.6-2.6) mg/dL Total Bilirubin 0.8 (0.0-1.0) mg/dL Direct Bilirubin 0.3 (0.0-0.5) mg/dL AST 44 H (5-37) U/L ALT 47 H (0-40) U/L Alkaline Phosphatase 82 (39-117) U/L Ammonia (13-55) umol/L Troponin I High Sens (<3.5-35.0) ng/L Total Protein 7.7 (6.5-8.0) g/dL Albumin 3.8 (3.5-5.0) g/dL Lipase 26 (8-78) U/L TSH 0.95 (0.32-4.0) uIU/mL Ethyl Alcohol < 10 mg/dL COVID-19 ([facility]) (Negative) COVID-19 Clin Com Critical Care Time Critical Care Time Critical Care Time: Yes Total Critical Care Time: 40 Attestation: I have personally provided 40 minutes of critical care time exclusive of time spent on separately billable procedures. Time includes review of lab data, radiology results, discussion with consultants, and monitoring for potential decompensation. Interventions were performed as documented above Discharge Plan Discharge Clinical Impression: Altered mental status, Alcohol withdrawal, Alcohol withdrawal delirium Patient Disposition: Admitted As Inpatient
[2021-10-03 23:30] LABS: Glucose, Whole Blood 102 mg/dL (60-115)
[2021-10-03] MEDS: 0.9 % Sodium Chloride 1,000 ML 999 ML IV (23:50)
[2021-10-03] MEDS: LORazepam 2 MG/ML VIAL IVPUSH (23:50)
[2021-10-04] VITALS (7 sets, daily range): BP systolic 122–154; BP diastolic 54–96; PULSE 69–89; RESP 14–22; O2SAT 95–98
[2021-10-04] LABS: COVID-19 Test Negative (Negative); Troponin-I High Sensitivity 10.4 ng/L (<3.5-35.0)
[2021-10-04 00:07] LABS: INTERNATIONAL NORM RATIO 1.1 (0.9-1.1); Prothrombin Time 12.4 SEC (9.9-13.0)
[2021-10-04 00:43] LABS: Alanine Aminotransferase 47 U/L (0-40); Albumin Level 3.8 g/dL (3.5-5.0); Alkaline Phosphatase 82 U/L (39-117); Anion Gap 13 (12-20); Aspartate Amino Transferase 44 U/L (5-37); Bilirubin Direct 0.3 mg/dL (0.0-0.5); Bilirubin Total 0.8 mg/dL (0.0-1.0); Blood Urea Nitrogen 39 mg/dL (9-16); Calcium 8.9 mg/dL (8.4-10.2); Carbon Dioxide 19 mmol/L (22-29); Chloride 100 mmol/L (96-108); Creatinine Clr Calc Pharmacy 29.7; Estimated Glomerular Filt Rate 29; Glucose Random 101 mg/dL (60-115); Lipase 26 U/L (8-78); Magnesium 1.6 mg/dL (1.6-2.6); Phosphorus 2.4 mg/dL (2.7-4.5); Potassium 4.2 mmol/L (3.3-5.1); Sodium 128 mmol/L (135-145); Total Protein 7.7 g/dL (6.5-8.0)
[2021-10-04 00:58] LABS: Thyroid Stimulating Hormone 0.95 uIU/mL (0.32-4.0)
[2021-10-04 01:04] LABS: Ammonia 21 umol/L (13-55)
[2021-10-04 01:13] LABS: Ethanol < 10 mg/dL
--- NOTE | 2021-10-04 01:31 | ECG_ITS ---
Test Reason : AMS Blood Pressure : / mmHG Vent. Rate : 084 BPM Atrial Rate : 084 BPM P-R Int : 146 ms QRS Dur : 074 ms QT Int : 398 ms P-R-T Axes : 043 042 047 degrees QTc Int : 470 ms Normal sinus rhythm Normal ECG When compared with ECG of 30-NOV-2018 16:18, QT has lengthened Referred By: Salome Correa Electronically Signed By:DENISE FARAH
[2021-10-04] MEDS: LORazepam 2 MG/ML VIAL IVPUSH (01:34)
--- NOTE | 2021-10-04 01:35 | PC.NURSE ---
pt medicated per Mar. Nurse mp notified and aware. Will continue monitor.
[2021-10-04] MEDS: PHENobarbitaL sodium 130 MG/ML VIAL 265 MG IM (01:50)
--- NOTE | 2021-10-04 01:56 | PC.NURSE ---
medicated per Mar.
--- NOTE | 2021-10-04 02:17 | P.HPHOSP_ITS ---
History of Present Illness Date of Service: 10/04/21 Chief Complaint: alcohol withdrawal 66-year-old male with a past medical history of hypertension, hyperlipidemia, prostate cancer, anxiety, depression, BPH presented to the hospital with a chief complaint of alcohol withdrawal. patient has the recent fracture of his left upper extremity; since then he has been not drinking like he used to. We, tremulous and shaky hence brought in with the family to the hospital for possible alcohol withdrawal. At the time of my entry patient already received Ativan and phenobarbital, sleeping, snoring. Spoke to the RN at bedside, reports patient was brought in by the family Will withdrawals. Patient was noted to be confused and hallucinating. ER course: ER team reported that patient noted to be in alcohol withdrawal, started on phenobarb protocol. Also received Ativan. Patient on nasally hallucinating visually. Currently, and cooperative. Also noted to have mild DANO and hyperkalemia. Given normal saline in the ER. Admitted to the hospital for further management PMFSH Medical History HTN (hypertension) Hx of dislocation of shoulder Prostate cancer Seasonal allergies Pertinent family history: reviewed Surgical History History of surgery Social History Advance Directives: No Advance Directives Information Provided: No Meds Allergies Allergy/AdvReac Type Severity Reaction Status Date / Time codeine [CODEINE] Allergy Unknown BECOMES Verified 07/29/21 15:08 HYPER, ITCHY, itching Codeine Sulfate Allergy Unknown Unknown Uncoded 07/29/21 15:08 Active Medications: Current Medications Enoxaparin Sodium (Enoxaparin Sodium 40 Mg/0.4 Ml Syringe) 40 mg SUBCUT Q24H NAKIA Famotidine (Famotidine 20 Mg Tablet) 20 mg PO BID NAKIA Folic Acid (Folic Acid 1 Mg Tablet) 1 mg PO DAILY NAKIA Stop: 10/07/21 08:59 Dextrose/Sodium Chloride (D5ns) 1,000 mls @ 50 mls/hr IVCONT .Q20H NAKIA Medication (No Benzodiazepines) 1 each MISCELLANE DAILY NAKIA Melatonin (Melatonin 3 Mg Tablet) 6 mg PO BEDTIME PRN PRN Reason: Insomnia Multivitamins/Vitamin C (Multivitamin Tablet) 1 tab PO DAILY [facility] Stop: 10/07/21 08:59 Phenobarbital Sodium (Phenobarbital Sodium 130 Mg/Ml Vial) 198 mg IM Q3H NAKIA Stop: 10/04/21 07:31 Senna (Sennosides 8.6 Mg Tablet) 17.2 mg PO BEDTIME PRN PRN Reason: Constipation Sodium Chloride (0.9 % Sodium Chloride Flush 3 Ml Syringe) 3 ml IVFLUSH QSHIFT NAKIA Thiamine HCl (Thiamine Hcl 100 Mg Tablet) 100 mg PO DAILY [facility] Stop: 10/07/21 08:59 Home Medications Medication Instructions Recorded Confirmed Last Taken Type atorvastatin 20 mg PO 06/12/21 06/12/21 Unknown History mg tablet fluticasone INTRANASAL 06/12/21 06/12/21 Unknown History propionate 50 mcg/actuation nasal spray,suspension hydroxyzine mg PO 06/12/21 06/12/21 Unknown History pamoate 25 mg capsule metoprolol mg PO 06/12/21 06/12/21 Unknown History succinate 50 mg tablet,extended release 24 hr naloxone 4 INTRANASAL 06/12/21 06/12/21 Unknown History mg/actuation nasal spray (Narcan) oxycodone-acetami tab PO 06/12/21 06/12/21 Unknown History nophen 5 mg-325 mg tablet sertraline 50 mg mg PO 06/12/21 06/12/21 Unknown History tablet tamsulosin 0.4 mg mg PO 06/12/21 06/12/21 Unknown History capsule timolol maleate drp OPHTHALMIC 06/12/21 06/12/21 Unknown History 0.5 % eye drops (EYE) Physical Exam Verdana 4l Vital Signs and Narrative: Verdana 4d Verdana 4d Vital Signs: Verdana 4d Verdana 4Bd Last Vital Signs Verdana 4d Relief Charge Nurse New 4d Relief Charge Nurse New 4d Temp 98.6 F 10/03/21 18:01 Relief Charge Nurse New 4d Pulse 89 10/04/21 00:35 Relief Charge Nurse New 4d Resp 14 10/04/21 00:35 BP 146/67 H 10/04/21 00:35 Pulse Ox 97 10/04/21 00:35 BMI result Body Mass Index 25.8 Gen: Appears be in no acute distress HEENT: NCAT, dry mucosa. Pulmonary: Vesicular breath sounds, fair air entry CVS: Normal S1-S2 Abdomen: BS+, Soft, Nontender Extremities: Warm well perfused Neuro: Alert and awake. Results Labs CBC and Chem 7: 10/03/21 20:31 10/04/21 00:16 Labs: Laboratory Results - last 24 hr 10/03/21 10/03/21 10/03/21 20:31 23:27 23:34 MCV 91.1 MCH 28.8 MCHC 31.6 RDW 14.0 Plt Count 206 MPV 9.7 Immature Gran % (Auto) 0.4 Neut % (Auto) 67.6 Lymph % (Auto) 17.4 L Rolette % (Auto) 14.4 H Eos % (Auto) 0.1 Baso % (Auto) 0.1 Lymph # (Auto) 2.5 Rolette # (Auto) 2.0 H Eos # (Auto) 0.0 Baso # (Auto) 0.0 Abs Immat Gran (auto) 0.05 H Absolute Neuts (auto) 9.6 H Absolute Nucleated RBC 0.000 Nucleated RBC % (auto) 0.0 Smear Tech's Comments VERIFIED PT INR Anion Gap Estim Creat Clear Calc Estimated GFR POC Glucose 102 Random Glucose Calcium Phosphorus Magnesium Total Bilirubin Direct Bilirubin AST ALT Alkaline Phosphatase Ammonia 21 Total Protein Albumin Lipase TSH Ethyl Alcohol COVID-19 (TIGRE) [employer] Clin Com 10/03/21 10/03/21 10/04/21 23:34 23:34 00:16 MCV MCH MCHC RDW Plt Count MPV Immature Gran % (Auto) Neut % (Auto) Lymph % (Auto) Rolette % (Auto) Eos % (Auto) Baso % (Auto) Lymph # (Auto) Rolette # (Auto) Eos # (Auto) Baso # (Auto) Abs Immat Gran (auto) Absolute Neuts (auto) Absolute Nucleated RBC Nucleated RBC % (auto) Smear Tech's Comments PT 12.4 INR 1.1 Anion Gap 13 Estim Creat Clear Calc 29.7 Estimated GFR 29 POC Glucose Random Glucose 101 Calcium 8.9 Phosphorus 2.4 L Magnesium 1.6 Total Bilirubin 0.8 Direct Bilirubin 0.3 AST 44 H ALT 47 H Alkaline Phosphatase 82 Ammonia Total Protein 7.7 Albumin 3.8 Lipase 26 TSH 0.95 Ethyl Alcohol COVID-19 (TIGRE) Negative COVID-19 Clin Com See Note 10/04/21 23:34 MCV MCH MCHC RDW Plt Count MPV Immature Gran % (Auto) Neut % (Auto) Lymph % (Auto) Rolette % (Auto) Eos % (Auto) Baso % (Auto) Lymph # (Auto) Rolette # (Auto) Eos # (Auto) Baso # (Auto) Abs Immat Gran (auto) Absolute Neuts (auto) Absolute Nucleated RBC Nucleated RBC % (auto) Smear Tech's Comments PT INR Anion Gap Estim Creat Clear Calc Estimated GFR POC Glucose Random Glucose Calcium Phosphorus Magnesium Total Bilirubin Direct Bilirubin AST ALT Alkaline Phosphatase Ammonia Total Protein Albumin Lipase TSH Ethyl Alcohol < 10 COVID-19 (TIGRE) COVID-19 Clin Com Imaging Radiologist's Impressions: Impressions Chest X-Ray 10/04/21 00:08 IMPRESSION: No acute cardiopulmonary findings. Severe osteoarthritis of both shoulders. Cervical Spine CT 10/04/21 00:50 IMPRESSION: Significantly limited detailed assessment of regions of the head and cervical spine due to patient motion artifact. While no gross acute abnormality is seen, more subtle pathology cannot be reliably excluded in this setting. Head CT 10/04/21 00:50 IMPRESSION: Significantly limited detailed assessment of regions of the head and cervical spine due to patient motion artifact. While no gross acute abnormality is seen, more subtle pathology cannot be reliably excluded in this setting. Assessment and Plan (1) Alcohol withdrawal: Status: Acute Plan 66-year-old male with a past medical history of hypertension, hyperlipidemia, prostate cancer, anxiety, depression, BPH presented to the hospital with a chief complaint of alcohol withdrawals. alcohol withdrawal : Patient was started on phenobarb protocol. Continue thiamine folate and multivitamins. Seizure precautions and aspiration precautions. Hyponatremia: Likely the setting of low solute state . patient on gentle normal saline Dano on CKD: Patient baseline creatinine around 1.5. Creatinine on presentation is 2.2. Likely prerenal. Patient on gentle fluids. Avoid nephrotoxins. recent history of left Humerus fracture: Left upper extremity swollen. will obtain repeat x-ray as well as ultrasound. Patient is moving the extremity, pulses are present. Pain control/ orthopedic follow-up history of hypertension /hyperlipidemia: Continue home medications, pending med rec History of prostate cancer: Continue home becalutamide DVT prophylaxis: Lovenox Code status: Full code Quality Stroke Does the patient have a stroke diagnosis?: No VTE Prior VTE?: No VTE Risk Level:: Medical - moderate - high VTE Device Contraindication: Treatment Not Indicated VTE Drug Contraindication: N/A - Med Ordered
--- NOTE | 2021-10-04 02:40 | PC.NURSE ---
PT contact Mario (brendan) - [phone]. Would like to be contacted with any updates.
--- NOTE | 2021-10-04 02:42 | PC.NURSE ---
PT hearing aids at bed side.
[2021-10-04] MEDS: Dextrose 5 % and 0.9 % NaCl 1,000 ML 50 ML IVCONT (03:13)
[2021-10-04] MEDS: Enoxaparin Sodium 40 MG/0.4 ML SYRINGE SUBCUT (03:13)
[2021-10-04] MEDS: PHENobarbitaL sodium 130 MG/ML VIAL 198 MG IM ×2 (04:36→17:22)
[2021-10-04 05:09] LABS: Appearance Urine CLEAR; Color Urine STRAW; Glucose Urine UA NEG (NEG); Leukocyte Esterase Urine NEG (NEG); Nitrite Urine NEG (NEG); PH 5.5 (5.0-8.0); UACC Culture Trigger NO; Urine Blood TRACE (NEG); Urine Ketones NEG (NEG); Urine Protein NEG (NEG-TRACE)
--- NOTE | 2021-10-04 05:19 | PC.NURSE ---
PT left arm is swollen and cool to the touch with significant bruising. PT has palpable pulses and limited ability moving the arm. Plan to X-ray and ultrasound the arm to identify pathology.
[2021-10-04 05:21] LABS: RBC Urine 0 /HPF (0); Squamous Epithelial Cell Urine 1+ /LPF; WBC Urine 0 /HPF (0-4)
[2021-10-04 08:25] LABS: Basophils Percent Auto 0.2 % (0-2); Eosinophils Percent Auto 0.1 % (0-4); Hematocrit 32.3 % (42.0-52.0); Hemoglobin 9.7 g/dl (14.0-18.0); Imm Gran Abs Auto 0.07 X10*3/uL (0.00-0.03); Imm Gran Pct Auto 0.5 % (0.0-0.4); Lymphocytes Absolute Auto 1.9 X10*3/uL (1.2-4.9); Lymphocytes Percent Auto 14.3 % (20-40); MANUAL DIFF FLAG SCAN; Mean Corpuscular Hemoglobin 28.5 pg (27.0-33.0); Mean Platelet Volume 9.9 fL (9.4-12.4); Monocytes Absolute Auto 2.4 X10*3/uL (0.1-1.2); Monocytes Percent Auto 17.9 % (2-11); Neutrophils Absolute Auto 8.8 x10*3/uL (2.0-8.3); Platelet Count 167 X10*3/uL (160-400); SCAN SMEAR FLAG 1; White Blood Count 13.1 X10*3/uL (4.8-10.8)
[2021-10-04 08:50] LABS: Anion Gap 15 (12-20); Blood Urea Nitrogen 33 mg/dL (9-16); Calcium 8.6 mg/dL (8.4-10.2); Carbon Dioxide 15 mmol/L (22-29); Chloride 104 mmol/L (96-108); Creatinine Clr Calc Pharmacy 34.1; Estimated Glomerular Filt Rate 34; Glucose Random 107 mg/dL (60-115); Potassium 4.3 mmol/L (3.3-5.1); Sodium 130 mmol/L (135-145)
[2021-10-04 08:51] LABS: SLIDE REVIEW VERIFIED
--- NOTE | 2021-10-04 08:53 | PHA.MEDREC ---
Pharmacy Consult ? Medication Reconciliation Pharmacy has completed the medication reconciliation. Spoke to pt's daughter Cynthia who verified his packaged meds. No remarkable issues. Robyn Osborn, HarveyD
--- NOTE | 2021-10-04 10:51 | PC.NURSE ---
Addendum entered by Leesa Sargent RN 10/04/21 11:23: Patient continues to be minimally arouable; maintaining airway, O2 SAT 97%. Continue to monitor per Dr Irene. Original Note: Attempted to give patient medications around 0830 this AM; when attempting to arouse, patient grunts; won't open eyes, arouse enough to give medications. Dr Irene notified; hold IM pheno and AM meds for now. Will continue to monitor.
--- NOTE | 2021-10-04 15:56 | MHC.CM.PN ---
CM MET WITH PTS SON WHO WAS AT BEDSIDE. HE REPORTS THE PT LIVES ALONE AND IS INDEPENDENT AT BASELINE HE REPORTS THEY HAVE TRIED TO SEND VNA'S IN THE PAST BUT THE PT DOES NOT LET THEM IN HE REPORTS THE PT USES A CANE BUT GETS AROUND BETTER SINCE HAVING HIS KNEES REPLACED PTS PCP IS RUTH ANN PERDOMO PER SON, PT DOES NOT HAVE A HCP, HE IS AWARE CM WILL ATTEMPT TO OBTAIN ONE ONCE PT IS CLEAR IMM DELIVERED, ORIGINAL GIVEN TO PTS SON, COPY SENT TO [facility] CURRENT DC PLAN IS HOME VS HOME WITH VNA FOR PT/OT FAMILY TO TRANSPORT
--- NOTE | 2021-10-04 16:55 | PC.NURSE ---
Pt now more alert, still disoriented and confused. Notified Dr Irene. Verbal order to give missed IM dose from this morning now. Call to pharmacy who will enter dose for now.
--- NOTE | 2021-10-04 21:41 | PC.NURSE ---
Addendum entered by Moncho Chaudhary RN 10/05/21 05:59: Of note: Iván suffered a fall prior to his arrival to [facility], landing on his left upper extremity. the LUE was imaged on day 1 of his ER visit. A sling was indicated but the pt would not tolerate the sling. His LUE appears very swollen with ecchymosis in the area of his elbow. Slight movement of the LUE cause him to grimace and pull away. Addendum entered by Moncho Chaudhary RN 10/05/21 04:16: The pt has been sleeping throughout the night. As the night has progressed he has had periods where he wakes up, eyes open, and can be heard talking. When I enter his room it seems as if he is having visual hallucinations (he points to things that are not in the room) and is confused about where he is and who I am. I've attempted - on two separate occasions tonight - to have the pt sip water in order to give him PO meds. He has been unable to do this - he does not swallow the water, he pools it in his mouth, spits it out, and then coughs a lot. His oxygen sat's remained WNL throughout this, and he did not appear to be in any distress following the swallow screen. I have updated MD Brice Andrew about this and he requested I attempt to perform a neuro exam to assess for any deficits, but the pt - when awake - does not follow commands. I relayed this to Brice Tucker MD and he requested the pt have an additional Head CT, which has been performed. The pt is now resting in bed, occasionally waking and talking but quickly falling back to sleep. Montelongo catheter continues to drain clear, yellow urine. The pt frequently yells out that he has to pee - he has been frequently reminded that he has an indwelling catheter. VSS. Will continue to monitor. Original Note: I assumed care of this pt at 1900. The pt is sleeping in bed with his son at the bedside. Respirations non-labored, room air sat's 95%, RR 16, no cyanosis. Pt is somnolent - he is arousable to sternal rub - does not open his eyes to sternal rub but grimaces and mumbles in response. Hospitalist Brice notified and agrees to hold 2100 PO meds.
[2021-10-05] MEDS: 0.9 % Sodium Chloride Flush 3 ML SYRINGE IVFLUSH ×3 (01:18→20:12)
[2021-10-05] MEDS: Dextrose 5 % and 0.45 % NaCl 1,000 ML 50 ML IVCONT (04:23)
[2021-10-05 04:32] VITALS: BP 120/76; PULSE 84; RESP 18; O2SAT 95
[2021-10-05] MEDS: Enoxaparin Sodium 40 MG/0.4 ML SYRINGE SUBCUT (04:44)
[2021-10-05 07:05] LABS: Glucose, Whole Blood 107 mg/dL (60-115)
[2021-10-05 07:20] VITALS: BP 119/82; PULSE 86; RESP 19; O2SAT 95
--- NOTE | 2021-10-05 07:26 | PC.NURSE ---
assumed care of patient at 7am. pt is arousable to voice, no sweating, no cyanosis, vss. Left upper ar, swollen and discolored. does not move arm.
[2021-10-05 08:11] LABS: Hematocrit 31.4 % (42.0-52.0); Hemoglobin 9.6 g/dl (14.0-18.0); Mean Corpuscular HGB Conc 30.6 g/dl (31.0-36.0); Mean Corpuscular Hemoglobin 28.8 pg (27.0-33.0); Mean Corpuscular Volume 94.3 fL (80.0-98.0); Mean Platelet Volume 10.2 fL (9.4-12.4); Platelet Count 159 X10*3/uL (160-400); Red Blood Count 3.33 X10*6/uL (4.60-5.80); White Blood Count 13.6 X10*3/uL (4.8-10.8)
[2021-10-05 08:36] LABS: Anion Gap 16 (12-20); Blood Urea Nitrogen 25 mg/dL (9-16); Calcium 8.8 mg/dL (8.4-10.2); Carbon Dioxide 18 mmol/L (22-29); Chloride 103 mmol/L (96-108); Creatinine Clr Calc Pharmacy 43.5; Estimated Glomerular Filt Rate 45; Glucose Fasting 96 mg/dL (60-99); Potassium 4.3 mmol/L (3.3-5.1); Sodium 133 mmol/L (135-145)
--- NOTE | 2021-10-05 09:57 | P.PNIM_ITS ---
Subjective Subjective Date of Service: 10/05/21 Interval History: cc: ams interval history: agitated, wants to go home, still confused Cardiovascular Cardiovascular: Reports no additional cardiovascular complaints Gastrointestinal Gastrointestinal: Reports no additional gastrointestinal complaints Physical Exam Verdana 4l Vital Signs: Verdana 4d Verdana 4d Vital Signs: Verdana 4d Verdana 4Bd Last Vital Signs Verdana 4d Analyst [employer] New 4d Analyst [employer] New 4d Temp 98.6 F 10/03/21 18:01 Analyst [employer] New 4d Pulse 86 10/05/21 07:20 Analyst [employer] New 4d Resp 19 10/05/21 07:20 BP 119/82 10/05/21 07:20 Pulse Ox 95 10/05/21 07:20 BMI result Body Mass Index 25.8 General: Alert oriented to person and time, not place agitated Resp: CTA bilateral, no accessory muscles used CVS: S1,S2,RRR GI: soft, non tender, non distended Neuro: motor grossly intact, alert lue extremity swelling, decreased ROM Psych: impaired insight Objective Data Active Medications Aspirin (Aspirin Enteric Coated 81 Mg Tablet.) 81 mg PO DAILY [facility] Atorvastatin Calcium (Atorvastatin Calcium 20 Mg Tablet) 20 mg PO DAILY [facility] Bupropion HCl (Bupropion Hcl Xl 300 Mg Tab.Er.24h) 300 mg PO DAILY [facility] Enoxaparin Sodium (Enoxaparin Sodium 40 Mg/0.4 Ml Syringe) 40 mg SUBCUT Q24H [facility] Last Admin: 10/05/21 04:44 Dose: 40 mg Documented by: DUKE Famotidine (Famotidine 20 Mg Tablet) 20 mg PO BID [facility] Last Admin: 10/04/21 21:41 Dose: Not Given Documented by: DUKE Non-Admin Reason: See Note Folic Acid (Folic Acid 1 Mg Tablet) 1 mg PO DAILY [facility] Stop: 10/07/21 08:59 Last Admin: 10/04/21 11:35 Dose: Not Given Documented by: CHRISTINA Non-Admin Reason: Patient Condition Contraindication Hydroxyzine HCl (Hydroxyzine Hcl 25 Mg Tablet) 25 mg PO BID [facility] Last Admin: 10/04/21 21:40 Dose: Not Given Documented by: DUKE Non-Admin Reason: See Note Thiamine HCl 100 mg/ Sodium (Chloride) 101 mls @ 202 mls/hr IV DAILY [facility] Loratadine (Loratadine 10 Mg Tablet) 10 mg PO DAILY PRN PRN Reason: allergies Medication (No Benzodiazepines) 1 each MISCELLANE DAILY [facility] Melatonin (Melatonin 3 Mg Tablet) 6 mg PO BEDTIME PRN PRN Reason: Insomnia Metoprolol Succinate (Metoprolol Succinate Er 50 Mg Tab.Er.24h) 50 mg PO DAILY [facility]; Protocol Multivitamins/Vitamin C (Multivitamin Tablet) 1 tab PO DAILY [facility] Stop: 10/07/21 08:59 Last Admin: 10/04/21 11:35 Dose: Not Given Documented by: CHRISTINA Non-Admin Reason: Patient Condition Contraindication Pharmacy Consult (Consult Rx Perform Med Rec) 1 each MISCELLANE ONCE PRN PRN Reason: Consult order Phenobarbital (Phenobarbital 15 Mg Tablet) 15 mg PO DAILY [facility]; Protocol Stop: 10/10/21 09:01 Phenobarbital (Phenobarbital 15 Mg Tablet) 45 mg PO BID [facility]; Protocol Stop: 10/06/21 09:01 Last Admin: 10/04/21 21:41 Dose: Not Given Documented by: DUKE Non-Admin Reason: See Note Phenobarbital (Phenobarbital 15 Mg Tablet) 15 mg PO BID [facility]; Protocol Stop: 10/08/21 09:01 Senna (Sennosides 8.6 Mg Tablet) 17.2 mg PO BEDTIME PRN PRN Reason: Constipation Sertraline HCl (Sertraline Hcl 100 Mg Tablet) 100 mg PO DAILY [facility] Sodium Chloride (0.9 % Sodium Chloride Flush 3 Ml Syringe) [facility] Last Admin: 10/05/21 01:18 Dose: 3 ml Documented by: DUKE Tamsulosin HCl (Tamsulosin Hcl 0.4 Mg Capsule) 0.4 mg PO BEDTIME [facility] Last Admin: 10/04/21 21:41 Dose: Not Given Documented by: DUKE Non-Admin Reason: See Note Thiamine HCl (Thiamine Hcl 100 Mg Tablet) 100 mg PO DAILY [facility] Stop: 10/07/21 08:59 Last Admin: 10/04/21 11:36 Dose: Not Given Documented by: CHRISTINA Non-Admin Reason: Patient Condition Contraindication Thiamine HCl (Thiamine Hcl 100 Mg Tablet) 100 mg PO DAILY [facility] Timolol Maleate (Timolol Maleate 0.5 % Oph Lina 5 Ml Drbtl) 1 drop EYE-LEFT DAILY NAKIA Vitamin D (Cholecalciferol (Vitamin D3) 25 Mcg Tablet) 50 mcg PO DAILY NAKIA Labs CBC & Chem 7: 10/05/21 07:43 10/05/21 07:43 Labs: Laboratory Results - last 24 hr 10/05/21 10/05/21 10/05/21 07:01 07:43 07:43 MCV 94.3 MCH 28.8 MCHC 30.6 L RDW 14.0 Plt Count 159 L MPV 10.2 Absolute Nucleated RBC 0.000 Nucleated RBC % (auto) 0.0 Anion Gap 16 Estim Creat Clear Calc 43.5 Estimated GFR 45 POC Glucose 107 Fasting Glucose 96 Calcium 8.8 Assessment and Plan (1) Altered mental status: Status: Acute Plan 66M with a past medical history of hypertension, hyperlipidemia, prostate cancer, anxiety, depression, BPH presented to the hospital with a chief complaint of alcohol withdrawal alcohol dependence with withdrawal with delerium tremens improved today continue phenobarb, ciwa, vitamins hyponatremia mild, stop hypotonic fluids, will correct on its own with fluid restriction, monitor recent left humeral fracture keep in sling OT eval prostate ca becalutamide Jhonny on CKD III resolved, back to baseline creatinine around 1.5 ? DVT prophylaxis:? Lovenox Code status: Full code Quality Stroke Does the patient have a stroke diagnosis?: No VTE Prior VTE?: No VTE Risk Level:: Medical - moderate - high VTE Device Contraindication: Treatment Not Indicated VTE Drug Contraindication: N/A - Med Ordered
--- NOTE | 2021-10-05 10:13 | PC.NURSE ---
pt's son at bedside. Reviewed status and updated him on plan. Skin care and repositioning provided by yard demurrage clerk. (Give them a raise).
--- NOTE | 2021-10-05 10:44 | MHC.CM.PN ---
Addendum entered by Makeda Patel 10/05/21 11:42: Patient is vaccinated x2 and boosted. Copy of HCP obtained from [facility]. Original Note: Patient remains admitted but in ER. Patient's son, Mikael present and requesting to speak to case management. T/W met with son at bedside. Patient currently sleeping. Mikael and his sisters feel patient will need STR at discharge. List from [facility] provided to Mikael to all facilities that offer STR within 15 miles of patient's residence. Mikael will go over list with sisters and provide case management with 2 placement options. Mikael is checking with his sisters about patient's vaccination status. Copy of HCP request from [facility] by T/W. Continue to monitor for d/c needs.
[2021-10-05 10:54] VITALS: BP 122/79; PULSE 81; RESP 14; TEMP 36.6; O2SAT 95
--- NOTE | 2021-10-05 11:51 | PC.NURSE ---
received Timolol from pharmacy, will administer per MAR
[2021-10-05] MEDS: timoloL maleate 0.5 % Oph Sol 5 ML DRBTL 1 DROP EYE-LEFT (11:54)
[2021-10-05 15:30] VITALS: BP 148/86; PULSE 82; RESP 18; TEMP 36.7; O2SAT 96
[2021-10-05] MEDS: PHENobarbitaL sodium 130 MG/ML VIAL IM (16:53)
[2021-10-05 20:00] VITALS: BP 112/74; PULSE 82; RESP 18; TEMP 37; O2SAT 94
[2021-10-05] MEDS: Tamsulosin HCL 0.4 MG CAPSULE PO (20:08)
[2021-10-05] MEDS: Famotidine 20 MG TABLET PO (20:08)
[2021-10-05] MEDS: hydrOXYzine HCL 25 MG TABLET PO (20:08)
[2021-10-05] MEDS: PHENobarbitaL 15 MG TABLET 45 MG PO (20:09)
[2021-10-06] VITALS (7 sets, daily range): BP systolic 118–146; BP diastolic 70–89; PULSE 72–92; RESP 17–20; TEMP 36.3–37.7; O2SAT 93–98
[2021-10-06 06:19] LABS: Hematocrit 28.7 % (42.0-52.0); Mean Corpuscular HGB Conc 31.4 g/dl (31.0-36.0); Mean Corpuscular Volume 92.6 fL (80.0-98.0); Mean Platelet Volume 9.9 fL (9.4-12.4); Platelet Count 198 X10*3/uL (160-400); Red Cell Distribution Width 13.9 % (11.0-16.0); White Blood Count 14.3 X10*3/uL (4.8-10.8)
[2021-10-06 06:55] LABS: Anion Gap 14 (12-20); Blood Urea Nitrogen 27 mg/dL (9-16); Calcium 8.8 mg/dL (8.4-10.2); Carbon Dioxide 21 mmol/L (22-29); Chloride 106 mmol/L (96-108); Creatinine Clr Calc Pharmacy 45.5; Estimated Glomerular Filt Rate 47; Glucose Fasting 99 mg/dL (60-99); Potassium 4.2 mmol/L (3.3-5.1); Sodium 137 mmol/L (135-145)
--- NOTE | 2021-10-06 09:13 | P.PNIM_ITS ---
Subjective Subjective Date of Service: 10/06/21 Interval History: cc: ams interval history: less agitated, still confused Cardiovascular Cardiovascular: Reports no additional cardiovascular complaints Respiratory Respiratory: Reports no additional respiratory complaints Physical Exam Verdana 4l Vital Signs: Verdana 4d Verdana 4d Vital Signs: Verdana 4d Verdana 4Bd Last Vital Signs Verdana 4d Cracking And Fanning Machine Operator New 4d Cracking And Fanning Machine Operator New 4d Temp 98 F 10/06/21 03:33 Cracking And Fanning Machine Operator New 4d Pulse 75 10/06/21 07:23 Cracking And Fanning Machine Operator New 4d Resp 20 10/06/21 07:23 BP 133/84 10/06/21 07:23 Pulse Ox 95 10/06/21 07:23 BMI result Body Mass Index 25.8 General: lethargic, oriented to person and time, not place, calm Resp:? CTA bilateral, no accessory muscles used CVS: S1,S2,RRR GI: soft, non tender, non distended Neuro:? motor grossly intact, lethargic lue extremity swelling, decreased ROM Psych: impaired insight? Objective Data Active Medications Aspirin (Aspirin Enteric Coated 81 Mg Tablet.) 81 mg PO DAILY [facility] Last Admin: 10/05/21 10:47 Dose: Not Given Documented by: RAFIA Non-Admin Reason: Patient Condition Contraindication Atorvastatin Calcium (Atorvastatin Calcium 20 Mg Tablet) 20 mg PO DAILY [facility] Last Admin: 10/05/21 10:48 Dose: Not Given Documented by: RAFIA Non-Admin Reason: Patient Condition Contraindication Bupropion HCl (Bupropion Hcl Xl 300 Mg Tab.Er.24h) 300 mg PO DAILY [facility] Last Admin: 10/05/21 10:48 Dose: Not Given Documented by: RAFIA Non-Admin Reason: Patient Condition Contraindication Enoxaparin Sodium (Enoxaparin Sodium 40 Mg/0.4 Ml Syringe) 40 mg SUBCUT Q24H [facility] Last Admin: 10/06/21 02:56 Dose: Not Given Documented by: NANDO Non-Admin Reason: Patient Refused Famotidine (Famotidine 20 Mg Tablet) 20 mg PO BID [facility] Last Admin: 10/05/21 20:08 Dose: 20 mg Documented by: GARLAND Folic Acid (Folic Acid 1 Mg Tablet) 1 mg PO DAILY [facility] Stop: 10/07/21 08:59 Last Admin: 10/05/21 10:47 Dose: Not Given Documented by: RAFIA Non-Admin Reason: Patient Condition Contraindication Hydroxyzine HCl (Hydroxyzine Hcl 25 Mg Tablet) 25 mg PO BID [facility] Last Admin: 10/05/21 20:08 Dose: 25 mg Documented by: GARLAND Thiamine HCl 100 mg/ Sodium (Chloride) 101 mls @ 202 mls/hr IV DAILY [facility] Last Admin: 10/05/21 10:49 Dose: Not Given Documented by: RAFIA Non-Admin Reason: Patient Condition Contraindication Loratadine (Loratadine 10 Mg Tablet) 10 mg PO DAILY PRN PRN Reason: allergies Medication (No Benzodiazepines) 1 each MISCELLANE DAILY [facility] Melatonin (Melatonin 3 Mg Tablet) 6 mg PO BEDTIME PRN PRN Reason: Insomnia Metoprolol Succinate (Metoprolol Succinate Er 50 Mg Tab.Er.24h) 50 mg PO DAILY [facility]; Protocol Last Admin: 10/05/21 10:48 Dose: Not Given Documented by: RAFIA Non-Admin Reason: Patient Condition Contraindication Multivitamins/Vitamin C (Multivitamin Tablet) 1 tab PO DAILY [facility] Stop: 10/07/21 08:59 Last Admin: 10/05/21 10:47 Dose: Not Given Documented by: RAFIA Non-Admin Reason: Patient Condition Contraindication Pharmacy Consult (Consult Rx Perform Med Rec) 1 each MISCELLANE ONCE PRN PRN Reason: Consult order Phenobarbital (Phenobarbital 15 Mg Tablet) 15 mg PO DAILY [facility]; Protocol Stop: 10/10/21 09:01 Phenobarbital (Phenobarbital 15 Mg Tablet) 15 mg PO BID [facility]; Protocol Stop: 10/08/21 09:01 Senna (Sennosides 8.6 Mg Tablet) 17.2 mg PO BEDTIME PRN PRN Reason: Constipation Sertraline HCl (Sertraline Hcl 100 Mg Tablet) 100 mg PO DAILY [facility] Last Admin: 10/05/21 10:48 Dose: Not Given Documented by: RAFIA Non-Admin Reason: Patient Condition Contraindication Sodium Chloride (0.9 % Sodium Chloride Flush 3 Ml Syringe) 3 ml IVFLUSH QSHIFT [facility] Last Admin: 10/05/21 20:12 Dose: 3 ml Documented by: GARLAND Tamsulosin HCl (Tamsulosin Hcl 0.4 Mg Capsule) 0.4 mg PO BEDTIME [facility] Last Admin: 10/05/21 20:08 Dose: 0.4 mg Documented by: GARLAND Thiamine HCl (Thiamine Hcl 100 Mg Tablet) 100 mg PO DAILY [facility] Stop: 10/07/21 08:59 Last Admin: 10/05/21 10:47 Dose: Not Given Documented by: RAFIA Non-Admin Reason: Patient Condition Contraindication Thiamine HCl (Thiamine Hcl 100 Mg Tablet) 100 mg PO DAILY [facility] Last Admin: 10/05/21 10:48 Dose: Not Given Documented by: RAFIA Non-Admin Reason: Patient Condition Contraindication Timolol Maleate (Timolol Maleate 0.5 % Oph Lina 5 Ml Drbtl) 1 drop EYE-LEFT DAILY [facility] Last Admin: 10/05/21 11:54 Dose: 1 drop Documented by: MONSERRAT Vitamin D (Cholecalciferol (Vitamin D3) 25 Mcg Tablet) 50 mcg PO DAILY [facility] Last Admin: 10/05/21 10:48 Dose: Not Given Documented by: RAFIA Non-Admin Reason: Patient Condition Contraindication Labs CBC & Chem 7: 10/06/21 05:52 10/06/21 05:52 Labs: Laboratory Results - last 24 hr 10/06/21 10/06/21 05:52 05:52 MCV 92.6 MCH 29.0 MCHC 31.4 RDW 13.9 Plt Count 198 MPV 9.9 Absolute Nucleated RBC 0.000 Nucleated RBC % (auto) 0.0 Anion Gap 14 Estim Creat Clear Calc 45.5 Estimated GFR 47 Fasting Glucose 99 Calcium 8.8 Assessment and Plan (1) Altered mental status: Status: Acute Plan 66M with a past medical history of hypertension, hyperlipidemia, prostate cancer, anxiety, depression, BPH presented to the hospital with a chief complaint of alcohol withdrawal alcohol dependence with withdrawal with delerium tremens improved today continue phenobarb, ciwa, vitamins hyponatremia resolved recent left humeral fracture keep in sling OT eval prostate ca becalutamide Jhonny on CKD III resolved, back to baseline creatinine around 1.5 ? DVT prophylaxis:? Lovenox Code status: Full code Quality Stroke Does the patient have a stroke diagnosis?: No VTE Prior VTE?: No VTE Risk Level:: Medical - moderate - high VTE Device Contraindication: Treatment Not Indicated VTE Drug Contraindication: N/A - Med Ordered
[2021-10-06] MEDS: PHENobarbitaL 15 MG TABLET 45 MG PO (09:14)
[2021-10-06] MEDS: Famotidine 20 MG TABLET PO ×2 (09:15→20:10)
[2021-10-06] MEDS: Multivitamin TABLET 1 TAB PO (09:15)
[2021-10-06] MEDS: Metoprolol Succinate ER 50 MG TAB.ER.24H PO (09:15)
[2021-10-06] MEDS: Aspirin Enteric Coated 81 MG TABLET.DR PO (09:15)
[2021-10-06] MEDS: hydrOXYzine HCL 25 MG TABLET PO ×2 (09:15→20:10)
[2021-10-06] MEDS: Folic Acid 1 MG TABLET PO (09:15)
[2021-10-06] MEDS: Cholecalciferol (Vitamin D3) 25 MCG TABLET 50 MCG PO (09:15)
[2021-10-06] MEDS: Sertraline HCL 100 MG TABLET PO (09:15)
[2021-10-06] MEDS: Atorvastatin Calcium 20 MG TABLET PO (09:15)
[2021-10-06] MEDS: buPROPion HCl XL 300 MG TAB.ER.24H PO (09:15)
[2021-10-06] MEDS: 0.9 % Sodium Chloride Flush 3 ML SYRINGE IVFLUSH (09:15)
[2021-10-06] MEDS: Thiamine HCL 100 MG TABLET PO (09:15)
[2021-10-06] MEDS: timoloL maleate 0.5 % Oph Sol 5 ML DRBTL 1 DROP EYE-LEFT (09:16)
--- NOTE | 2021-10-06 15:27 | MHC.CM.PN ---
per lew pt not ready for dc pt needs to be seen by pt prior to dc
--- NOTE | 2021-10-06 15:56 | MHC.SL.SWA ---
Speech Pathologist Impression: Within Functional Limits Risk of Aspiration Due to: None Dysphasia Diet Status: No Change Liquid Consistency and Strategies for Safe Swallow: Liquid Intake Recommendation: Thin Liquid Intake Strategies: Solid Food Consistency: Dietary Recommendations: Regular Additional Modifications to Solid Foods: No clinical s/s of aspiration. Recommend resume REGULAR solids/ THIN liquids, pills WHOLE in LIQUID. Patient may need some assistance with tray set up. Further ST intervention no longer warranted as swallow function is deemed to be WFL. Please re-refer with any changes or further concern. Oral Medication Intake: Whole with Liquid Compensatory Strategies and Precautions to be Taken for Safe Swallow: Sitting Upright (90 deg) Small Bites and Sips Rate of Ingestion Change Supervision While Eating and Drinking for Safe Swallow: Total Supervision (1:1) Foods to Avoid: Swallowing Recommended Treatments: Recommendation for Speech: NA:Typical Evaluation Comment: Frequency/Duration: Date Range for Service Req: Timeline to reassess: Carry In Worker Clinican/Clinical Fellow: No Supervisory Statement: I have reviewed and agree with the student/clinical fellow's documentation: N/A Speech Language Pathologist: Thea Cordova M.A., CCC-CABLE TELEVISION TECHNICIAN
[2021-10-06] MEDS: Tamsulosin HCL 0.4 MG CAPSULE PO (20:10)
[2021-10-06] MEDS: PHENobarbitaL 15 MG TABLET PO (20:10)
[2021-10-07] MEDS: 0.9 % Sodium Chloride Flush 3 ML SYRINGE IVFLUSH ×4 (00:20→19:44)
[2021-10-07 04:00] VITALS: BP 151/81; PULSE 88; RESP 18; TEMP 37.1; O2SAT 94
[2021-10-07] MEDS: Enoxaparin Sodium 40 MG/0.4 ML SYRINGE SUBCUT (04:28)
[2021-10-07 06:26] LABS: Hematocrit 28.2 % (42.0-52.0); Hemoglobin 8.8 g/dl (14.0-18.0); Mean Corpuscular HGB Conc 31.2 g/dl (31.0-36.0); Mean Corpuscular Hemoglobin 28.8 pg (27.0-33.0); Mean Corpuscular Volume 92.2 fL (80.0-98.0); Mean Platelet Volume 9.8 fL (9.4-12.4); Platelet Count 238 X10*3/uL (160-400); Red Blood Count 3.06 X10*6/uL (4.60-5.80); Red Cell Distribution Width 13.8 % (11.0-16.0); White Blood Count 13.7 X10*3/uL (4.8-10.8)
[2021-10-07 06:50] LABS: Anion Gap 14 (12-20); Blood Urea Nitrogen 28 mg/dL (9-16); Calcium 9.2 mg/dL (8.4-10.2); Carbon Dioxide 22 mmol/L (22-29); Chloride 104 mmol/L (96-108); Creatinine Clr Calc Pharmacy 43.5; Estimated Glomerular Filt Rate 45; Glucose Fasting 103 mg/dL (60-99); Magnesium 1.8 mg/dL (1.6-2.6); Potassium 4.1 mmol/L (3.3-5.1); Sodium 136 mmol/L (135-145)
[2021-10-07 07:00] VITALS: BP 147/80; PULSE 92; RESP 19; TEMP 37.1; O2SAT 99
--- NOTE | 2021-10-07 10:19 | P.PNIM_ITS ---
Subjective Subjective Date of Service: 10/07/21 Interval History: cc: ams interval history: calm, still confused Cardiovascular Cardiovascular: Reports no additional cardiovascular complaints Respiratory Respiratory: Reports no additional respiratory complaints Physical Exam Vital Signs: Vital Signs: Last Vital Signs Temp 98.7 F 10/07/21 07:00 Pulse 92 10/07/21 07:00 Resp 19 10/07/21 07:00 BP 147/80 H 10/07/21 07:00 Pulse Ox 99 10/07/21 07:00 BMI result Body Mass Index 25.8 General: alert, oriented to person and time, not place, calm Resp:? CTA bilateral, no accessory muscles used CVS: S1,S2,RRR GI: soft, non tender, non distended Neuro:? motor grossly intact, alert lue extremity swelling, decreased ROM Psych: impaired insight? Objective Data Active Medications Aspirin (Aspirin Enteric Coated 81 Mg Tablet.) 81 mg PO DAILY [facility] Last Admin: 10/06/21 09:15 Dose: 81 mg Documented by: BETH Atorvastatin Calcium (Atorvastatin Calcium 20 Mg Tablet) 20 mg PO DAILY [facility] Last Admin: 10/06/21 09:15 Dose: 20 mg Documented by: BETH Bupropion HCl (Bupropion Hcl Xl 300 Mg Tab.Er.24h) 300 mg PO DAILY [facility] Last Admin: 10/06/21 09:15 Dose: 300 mg Documented by: BETH Enoxaparin Sodium (Enoxaparin Sodium 40 Mg/0.4 Ml Syringe) 40 mg SUBCUT Q24H [facility] Last Admin: 10/07/21 04:28 Dose: 40 mg Documented by: EARNEST Famotidine (Famotidine 20 Mg Tablet) 20 mg PO BID [facility] Last Admin: 10/06/21 20:10 Dose: 20 mg Documented by: EARNEST Hydroxyzine HCl (Hydroxyzine Hcl 25 Mg Tablet) 25 mg PO BID [facility] Last Admin: 10/06/21 20:10 Dose: 25 mg Documented by: EARNEST Loratadine (Loratadine 10 Mg Tablet) 10 mg PO DAILY PRN PRN Reason: allergies Medication (No Benzodiazepines) 1 each MISCELLANE DAILY [facility] Melatonin (Melatonin 3 Mg Tablet) 6 mg PO BEDTIME PRN PRN Reason: Insomnia Metoprolol Succinate (Metoprolol Succinate Er 50 Mg Tab.Er.24h) 50 mg PO DAILY [facility]; Protocol Last Admin: 10/06/21 09:15 Dose: 50 mg Documented by: BETH Pharmacy Consult (Consult Rx Perform Med Rec) 1 each MISCELLANE ONCE PRN PRN Reason: Consult order Phenobarbital (Phenobarbital 15 Mg Tablet) 15 mg PO DAILY [facility]; Protocol Stop: 10/10/21 09:01 Phenobarbital (Phenobarbital 15 Mg Tablet) 15 mg PO BID [facility]; Protocol Stop: 10/08/21 09:01 Last Admin: 10/06/21 20:10 Dose: 15 mg Documented by: EARNEST Senna (Sennosides 8.6 Mg Tablet) 17.2 mg PO BEDTIME PRN PRN Reason: Constipation Sertraline HCl (Sertraline Hcl 100 Mg Tablet) 100 mg PO DAILY [facility] Last Admin: 10/06/21 09:15 Dose: 100 mg Documented by: BETH Sodium Chloride (0.9 % Sodium Chloride Flush 3 Ml Syringe) 3 ml IVFLUSH QSHIFT [facility] Last Admin: 10/07/21 00:20 Dose: 3 ml Documented by: EARNEST Tamsulosin HCl (Tamsulosin Hcl 0.4 Mg Capsule) 0.4 mg PO BEDTIME [facility] Last Admin: 10/06/21 20:10 Dose: 0.4 mg Documented by: EARNEST Thiamine HCl (Thiamine Hcl 100 Mg Tablet) 100 mg PO DAILY [facility] Last Admin: 10/06/21 09:16 Dose: Not Given Documented by: BETH Non-Admin Reason: Duplicate Order Timolol Maleate (Timolol Maleate 0.5 % Oph Lina 5 Ml Drbtl) 1 drop EYE-LEFT DAILY [facility] Last Admin: 10/06/21 09:16 Dose: 1 drop Documented by: BETH Vitamin D (Cholecalciferol (Vitamin D3) 25 Mcg Tablet) 50 mcg PO DAILY [facility] Last Admin: 10/06/21 09:15 Dose: 50 mcg Documented by: BETH Labs CBC & Chem 7: 10/07/21 06:06 10/07/21 06:06 Labs: Laboratory Results - last 24 hr 10/07/21 10/07/21 06:06 06:06 MCV 92.2 MCH 28.8 MCHC 31.2 RDW 13.8 Plt Count 238 MPV 9.8 Absolute Nucleated RBC 0.000 Nucleated RBC % (auto) 0.0 Anion Gap 14 Estim Creat Clear Calc 43.5 Estimated GFR 45 Fasting Glucose 103 H Calcium 9.2 Magnesium 1.8 Assessment and Plan (1) Altered mental status: Status: Acute Plan 66M with a past medical history of hypertension, hyperlipidemia, prostate cancer, anxiety, depression, BPH presented to the hospital with a chief complaint of alcohol withdrawal alcohol dependence with withdrawal with delerium tremens continues to improve, alert without agitation, but fairly confused with confabulation and very poor short term memory continue phenobarb, ciwa, vitamins hyponatremia resolved recent left humeral fracture keep in sling PT/OT eval prostate ca becalutamide Jhonny on CKD III resolved, back to baseline creatinine around 1.5 ? DVT prophylaxis:? Lovenox Code status: Full code Quality Stroke Does the patient have a stroke diagnosis?: No VTE Prior VTE?: No VTE Risk Level:: Medical - moderate - high VTE Device Contraindication: Treatment Not Indicated VTE Drug Contraindication: N/A - Med Ordered
[2021-10-07 10:32] VITALS: BP 147/80; PULSE 92; O2SAT 99
[2021-10-07] MEDS: Cholecalciferol (Vitamin D3) 25 MCG TABLET 50 MCG PO (10:34)
[2021-10-07] MEDS: buPROPion HCl XL 300 MG TAB.ER.24H PO (10:35)
[2021-10-07] MEDS: Sertraline HCL 100 MG TABLET PO (10:35)
[2021-10-07] MEDS: hydrOXYzine HCL 25 MG TABLET PO ×2 (10:36→19:43)
[2021-10-07] MEDS: Famotidine 20 MG TABLET PO ×2 (10:36→19:43)
[2021-10-07] MEDS: Aspirin Enteric Coated 81 MG TABLET.DR PO (10:37)
[2021-10-07] MEDS: Metoprolol Succinate ER 50 MG TAB.ER.24H PO (10:37)
[2021-10-07] MEDS: Atorvastatin Calcium 20 MG TABLET PO (10:37)
[2021-10-07] MEDS: Thiamine HCL 100 MG TABLET PO (10:37)
[2021-10-07] MEDS: PHENobarbitaL 15 MG TABLET PO ×2 (10:38→19:44)
[2021-10-07] MEDS: timoloL maleate 0.5 % Oph Sol 5 ML DRBTL 1 DROP EYE-LEFT (10:46)
[2021-10-07 10:48] VITALS: BP 109/70; PULSE 98; RESP 18; TEMP 37; O2SAT 95
[2021-10-07 15:28] VITALS: BP 137/77; PULSE 111; RESP 18; TEMP 38.2; O2SAT 98
[2021-10-07 19:34] VITALS: BP 123/69; PULSE 83; RESP 18; TEMP 37.4; O2SAT 97
[2021-10-07] MEDS: Tamsulosin HCL 0.4 MG CAPSULE PO (19:43)
[2021-10-07] MEDS: PHENobarbitaL sodium 130 MG/ML VIAL IM (23:00)
[2021-10-08] VITALS (8 sets, daily range): BP systolic 113–140; BP diastolic 64–88; PULSE 67–94; RESP 16–18; TEMP 36.5–38.3; O2SAT 92–97
--- NOTE | 2021-10-08 02:27 | PC.NURSE ---
Patient very agitated, yelling, hallucinating and kicking at staff. Very difficult to redirect. Dr Velez notified and one time dose of pheno ordered. Pheno administered with positive effect. Pt is now less restless, no longer yelling and being aggressive towards staff. Pt is lying in bed talking to the others he sees n the room. 1:[address] at this time.
[2021-10-08] MEDS: Aspirin Enteric Coated 81 MG TABLET.DR PO (10:18)
[2021-10-08] MEDS: Cholecalciferol (Vitamin D3) 25 MCG TABLET 50 MCG PO (10:18)
[2021-10-08] MEDS: Famotidine 20 MG TABLET PO ×2 (10:18→19:59)
[2021-10-08] MEDS: Sertraline HCL 100 MG TABLET PO (10:18)
[2021-10-08] MEDS: Thiamine HCL 100 MG TABLET PO (10:18)
[2021-10-08] MEDS: buPROPion HCl XL 300 MG TAB.ER.24H PO (10:18)
[2021-10-08] MEDS: hydrOXYzine HCL 25 MG TABLET PO ×2 (10:18→19:59)
[2021-10-08] MEDS: Atorvastatin Calcium 20 MG TABLET PO (10:18)
[2021-10-08] MEDS: Metoprolol Succinate ER 50 MG TAB.ER.24H PO (10:18)
[2021-10-08] MEDS: Multivitamin TABLET 1 TAB PO (10:19)
[2021-10-08] MEDS: PHENobarbitaL 15 MG TABLET PO ×2 (10:19→10:21)
[2021-10-08] MEDS: 0.9 % Sodium Chloride Flush 3 ML SYRINGE IVFLUSH ×3 (10:20→20:00)
[2021-10-08] MEDS: timoloL maleate 0.5 % Oph Sol 5 ML DRBTL 1 DROP EYE-LEFT (10:21)
[2021-10-08 10:43] LABS: Hematocrit 28.3 % (42.0-52.0); Mean Corpuscular HGB Conc 31.8 g/dl (31.0-36.0); Mean Corpuscular Hemoglobin 29.3 pg (27.0-33.0); Mean Corpuscular Volume 92.2 fL (80.0-98.0); Platelet Count 249 X10*3/uL (160-400); Red Blood Count 3.07 X10*6/uL (4.60-5.80); White Blood Count 10.3 X10*3/uL (4.8-10.8)
--- NOTE | 2021-10-08 12:27 | P.PNIM_ITS ---
Subjective Subjective Date of Service: 10/08/21 Interval History: the patient was seen and evaluated this morning Laying in bed, feels comfortable, sister at the bedside Still could only confused in the morning Had some difficulties overnight with worsening encephalopathy requiring bedside sitter No reported other overnight events. Systemic review: No fever, chills or weakness No chest pain, palpitation No shortness of breath or coughing No abdominal pain, nausea or vomiting No urinary symptoms No any rash or wounds Physical Exam Vital Signs: Vital Signs: Last Vital Signs Temp 97.9 F 10/08/21 11:11 Pulse 75 10/08/21 11:59 Resp 18 10/08/21 11:11 BP 113/76 10/08/21 11:59 Pulse Ox 97 10/08/21 11:59 BMI result Body Mass Index 25.8 Const: Other: Constitutional : Alert, interactive, not in distress Neck : Normal inspection, Supple Cardiovascular : RRR, S1 S2, no lower extremity edema Respiratory : Good bilateral air entry, no crackles, wheezes or rhonchi Gastrointestinal: soft, lax, Normal bowel sounds, Non tender Skin : Warm, Dry Neurological : Alert & disoriented x3, No focal deficit Objective Data Active Medications Aspirin (Aspirin Enteric Coated 81 Mg Tablet.Dr) 81 mg PO DAILY [facility] Last Admin: 10/08/21 10:18 Dose: 81 mg Documented by: VINCENZO Atorvastatin Calcium (Atorvastatin Calcium 20 Mg Tablet) 20 mg PO DAILY [facility] Last Admin: 10/08/21 10:18 Dose: 20 mg Documented by: VINCENZO Bupropion HCl (Bupropion Hcl Xl 300 Mg Tab.Er.24h) 300 mg PO DAILY [facility] Last Admin: 10/08/21 10:18 Dose: 300 mg Documented by: VINCENZO Enoxaparin Sodium (Enoxaparin Sodium 40 Mg/0.4 Ml Syringe) 40 mg SUBCUT Q24H [facility] Last Admin: 10/08/21 04:03 Dose: Not Given Documented by: ADITYA Non-Admin Reason: Patient Asleep Famotidine (Famotidine 20 Mg Tablet) 20 mg PO BID [facility] Last Admin: 10/08/21 10:18 Dose: 20 mg Documented by: VINCENZO Hydroxyzine HCl (Hydroxyzine Hcl 25 Mg Tablet) 25 mg PO BID [facility] Last Admin: 10/08/21 10:18 Dose: 25 mg Documented by: VINCENZO Loratadine (Loratadine 10 Mg Tablet) 10 mg PO DAILY PRN PRN Reason: allergies Medication (No Benzodiazepines) 1 each MISCELLANE DAILY [facility] Melatonin (Melatonin 3 Mg Tablet) 6 mg PO BEDTIME PRN PRN Reason: Insomnia Metoprolol Succinate (Metoprolol Succinate Er 50 Mg Tab.Er.24h) 50 mg PO DAILY [facility]; Protocol Last Admin: 10/08/21 10:18 Dose: 50 mg Documented by: VINCENZO Multivitamins/Vitamin C (Multivitamin Tablet) 1 tab PO DAILY [facility] Last Admin: 10/08/21 10:19 Dose: 1 tab Documented by: VINCENZO Pharmacy Consult (Consult Rx Perform Med Rec) 1 each MISCELLANE ONCE PRN PRN Reason: Consult order Phenobarbital (Phenobarbital 15 Mg Tablet) 15 mg PO DAILY [facility]; Protocol Stop: 10/10/21 09:01 Last Admin: 10/08/21 10:19 Dose: 15 mg Documented by: VINCENZO Quetiapine Fumarate (Quetiapine Fumarate 50 Mg Tablet) 50 mg PO DAILY@1700 [facility] Senna (Sennosides 8.6 Mg Tablet) 17.2 mg PO BEDTIME PRN PRN Reason: Constipation Sertraline HCl (Sertraline Hcl 100 Mg Tablet) 100 mg PO DAILY [facility] Last Admin: 10/08/21 10:18 Dose: 100 mg Documented by: VINCENZO Sodium Chloride (0.9 % Sodium Chloride Flush 3 Ml Syringe) 3 ml IVFLUSH QSHIFT [facility] Last Admin: 10/08/21 10:20 Dose: 3 ml Documented by: VINCENZO Tamsulosin HCl (Tamsulosin Hcl 0.4 Mg Capsule) 0.4 mg PO BEDTIME [facility] Last Admin: 10/07/21 19:43 Dose: 0.4 mg Documented by: ADITYA Thiamine HCl (Thiamine Hcl 100 Mg Tablet) 100 mg PO DAILY [facility] Last Admin: 10/08/21 10:18 Dose: 100 mg Documented by: VINCENZO Timolol Maleate (Timolol Maleate 0.5 % Oph Lina 5 Ml Drbtl) 1 drop EYE-LEFT DAILY [facility] Last Admin: 10/08/21 10:21 Dose: 1 drop Documented by: VINCENZO Vitamin D (Cholecalciferol (Vitamin D3) 25 Mcg Tablet) 50 mcg PO DAILY [facility] Last Admin: 10/08/21 10:18 Dose: 50 mcg Documented by: VINCENZO Labs CBC & Chem 7: 10/08/21 09:56 10/07/21 06:06 Labs: Laboratory Results - last 24 hr 10/08/21 09:56 MCV 92.2 MCH 29.3 MCHC 31.8 RDW 14.0 Plt Count 249 MPV 10.0 Absolute Nucleated RBC 0.000 Nucleated RBC % (auto) 0.0 Assessment and Plan (1) Alcohol withdrawal: Status: Acute (2) Metabolic encephalopathy: Status: Acute Plan 66M with a past medical history of hypertension, hyperlipidemia, prostate cancer, anxiety, depression, BPH presented to the hospital with a chief complaint of alcohol withdrawal Metabolic encephalopathy 2/2 alcohol dependence with withdrawal with delerium tremens 2/2 possibe inpatient delirium\ 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 DVT prophylaxis:? Lovenox Code status: Full code Quality Stroke Does the patient have a stroke diagnosis?: No VTE Prior VTE?: No VTE Risk Level:: Medical - moderate - high VTE Device Contraindication: Treatment Not Indicated VTE Drug Contraindication: N/A - Med Ordered
[2021-10-08 13:51] LABS: Anion Gap 13 (12-20); Carbon Dioxide 20 mmol/L (22-29); Chloride 106 mmol/L (96-108); Creatinine Clr Calc Pharmacy 40.4; Estimated Glomerular Filt Rate 41; Glucose Fasting 129 mg/dL (60-99); Potassium 4.2 mmol/L (3.3-5.1); Sodium 135 mmol/L (135-145)
--- NOTE | 2021-10-08 14:31 | MHC.CM.PN ---
spoke with pts jose luister updated her on bed search and barriers having a sitter ,ciwa scale etc
[2021-10-08 14:55] LABS: Blood Urea Nitrogen 30 mg/dL (9-16); Calcium 9.2 mg/dL (8.4-10.2)
[2021-10-08] MEDS: QUEtiapine Fumarate 50 MG TABLET PO (17:23)
[2021-10-08] MEDS: QUEtiapine Fumarate 25 MG TABLET PO (19:59)
[2021-10-08] MEDS: Melatonin 3 MG TABLET 6 MG PO (19:59)
[2021-10-08] MEDS: Tamsulosin HCL 0.4 MG CAPSULE PO (19:59)
[2021-10-09] VITALS (8 sets, daily range): BP systolic 106–133; BP diastolic 65–99; PULSE 71–90; RESP 16–20; TEMP 36.7–38.2; O2SAT 94–96
[2021-10-09] MEDS: Enoxaparin Sodium 40 MG/0.4 ML SYRINGE SUBCUT (03:48)
[2021-10-09 07:02] LABS: Hemoglobin 8.6 g/dl (14.0-18.0); Mean Corpuscular HGB Conc 30.7 g/dl (31.0-36.0); Mean Corpuscular Hemoglobin 28.2 pg (27.0-33.0); Mean Corpuscular Volume 91.8 fL (80.0-98.0); Mean Platelet Volume 9.6 fL (9.4-12.4); Platelet Count 271 X10*3/uL (160-400); Red Blood Count 3.05 X10*6/uL (4.60-5.80)
[2021-10-09 07:35] LABS: Anion Gap 12 (12-20); Blood Urea Nitrogen 32 mg/dL (9-16); Calcium 9.2 mg/dL (8.4-10.2); Carbon Dioxide 24 mmol/L (22-29); Chloride 105 mmol/L (96-108); Creatinine Clr Calc Pharmacy 35.7; Estimated Glomerular Filt Rate 36; Glucose Random 100 mg/dL (60-115); Sodium 137 mmol/L (135-145)
--- NOTE | 2021-10-09 10:24 | HO.PM.IMPN ---
Subjective Subjective Date of Service: 10/09/21 Interval History: the patient was seen and evaluated this morning Laying in bed, feels okay, confused at baseline Less difficulties overnight, did not require any IV medications Sitter at the bedside No reported other overnight events. Systemic review: No fever, chills or weakness No chest pain, palpitation No shortness of breath or coughing No abdominal pain, nausea or vomiting No urinary symptoms No any rash or wounds Physical Exam Vital Signs: Vital Signs: Last Vital Signs Temp 98.3 F 10/09/21 08:00 Pulse 71 10/09/21 08:00 Resp 20 10/09/21 08:00 BP 119/65 10/09/21 08:00 Pulse Ox 96 10/09/21 08:00 BMI result Body Mass Index 25.8 Const: Other: Constitutional : Alert, interactive, confused, not in distress Neck : Normal inspection, Supple Cardiovascular : RRR, S1 S2, no lower extremity edema Respiratory : Good bilateral air entry, no crackles, wheezes or rhonchi Gastrointestinal: soft, lax, Normal bowel sounds, Non tender Skin : Warm, Dry Neurological : Alert & disoriented x3, No focal deficit, confabulating stories Objective Data Active Medications Aspirin (Aspirin Enteric Coated 81 Mg Tablet.) 81 mg PO DAILY [facility] Last Admin: 10/08/21 10:18 Dose: 81 mg Documented by: VINCENZO Atorvastatin Calcium (Atorvastatin Calcium 20 Mg Tablet) 20 mg PO DAILY [facility] Last Admin: 10/08/21 10:18 Dose: 20 mg Documented by: VINCENZO Bupropion HCl (Bupropion Hcl Xl 300 Mg Tab.Er.24h) 300 mg PO DAILY [facility] Last Admin: 10/08/21 10:18 Dose: 300 mg Documented by: VINCENZO Enoxaparin Sodium (Enoxaparin Sodium 40 Mg/0.4 Ml Syringe) 40 mg SUBCUT Q24H [facility] Last Admin: 10/09/21 03:48 Dose: 40 mg Documented by: ADITYA Famotidine (Famotidine 20 Mg Tablet) 20 mg PO BID [facility] Last Admin: 10/08/21 19:59 Dose: 20 mg Documented by: ADITYA Hydroxyzine HCl (Hydroxyzine Hcl 25 Mg Tablet) 25 mg PO BID [facility] Last Admin: 10/08/21 19:59 Dose: 25 mg Documented by: ADITYA Hydroxyzine HCl (Hydroxyzine Hcl 50 Mg Tablet) 50 mg PO BEDTIME PRN PRN Reason: anxiety/restlessness Loratadine (Loratadine 10 Mg Tablet) 10 mg PO DAILY PRN PRN Reason: allergies Medication (No Benzodiazepines) 1 each MISCELLANE DAILY [facility] Melatonin (Melatonin 3 Mg Tablet) 6 mg PO BEDTIME PRN PRN Reason: Insomnia Last Admin: 10/08/21 19:59 Dose: 6 mg Documented by: ADITYA Metoprolol Succinate (Metoprolol Succinate Er 50 Mg Tab.Er.24h) 50 mg PO DAILY [facility]; Protocol Last Admin: 10/08/21 10:18 Dose: 50 mg Documented by: VINCENZO Multivitamins/Vitamin C (Multivitamin Tablet) 1 tab PO DAILY [facility] Last Admin: 10/08/21 10:19 Dose: 1 tab Documented by: VINCENZO Pharmacy Consult (Consult Rx Perform Med Rec) 1 each MISCELLANE ONCE PRN PRN Reason: Consult order Phenobarbital (Phenobarbital 15 Mg Tablet) 15 mg PO DAILY [facility]; Protocol Stop: 10/10/21 09:01 Last Admin: 10/08/21 10:19 Dose: 15 mg Documented by: VINCENZO Quetiapine Fumarate (Quetiapine Fumarate 50 Mg Tablet) 50 mg PO DAILY@1700 [facility] Last Admin: 10/08/21 17:23 Dose: 50 mg Documented by: VINCENZO Quetiapine Fumarate (Quetiapine Fumarate 50 Mg Tablet) 50 mg PO BEDTIME PRN PRN Reason: anxiety/restlessness Senna (Sennosides 8.6 Mg Tablet) 17.2 mg PO BEDTIME PRN PRN Reason: Constipation Sertraline HCl (Sertraline Hcl 100 Mg Tablet) 100 mg PO DAILY [facility] Last Admin: 10/08/21 10:18 Dose: 100 mg Documented by: VINCENZO Sodium Chloride (0.9 % Sodium Chloride Flush 3 Ml Syringe) 3 ml IVFLUSH QSHIFT [facility] Last Admin: 10/08/21 20:00 Dose: 3 ml Documented by: ADITYA Tamsulosin HCl (Tamsulosin Hcl 0.4 Mg Capsule) 0.4 mg PO BEDTIME [facility] Last Admin: 10/08/21 19:59 Dose: 0.4 mg Documented by: ADITYA Thiamine HCl (Thiamine Hcl 100 Mg Tablet) 100 mg PO DAILY [facility] Last Admin: 10/08/21 10:18 Dose: 100 mg Documented by: VINCENZO Timolol Maleate (Timolol Maleate 0.5 % Oph Lina 5 Ml Drbtl) 1 drop EYE-LEFT DAILY [facility] Last Admin: 10/08/21 10:21 Dose: 1 drop Documented by: VINCENZO Vitamin D (Cholecalciferol (Vitamin D3) 25 Mcg Tablet) 50 mcg PO DAILY [facility] Last Admin: 10/08/21 10:18 Dose: 50 mcg Documented by: VINCENZO Labs CBC & Chem 7: 10/09/21 06:27 10/09/21 06:27 Labs: Laboratory Results - last 24 hr 10/08/21 10/08/21 10/09/21 09:56 09:56 06:27 MCV 92.2 91.8 MCH 29.3 28.2 MCHC 31.8 30.7 L RDW 14.0 14.0 Plt Count 249 271 MPV 10.0 9.6 Absolute Nucleated RBC 0.000 0.000 Nucleated RBC % (auto) 0.0 0.0 Anion Gap 13 Estim Creat Clear Calc 40.4 Estimated GFR 41 Random Glucose Fasting Glucose 129 H Calcium 9.2 10/09/21 06:27 MCV MCH MCHC RDW Plt Count MPV Absolute Nucleated RBC Nucleated RBC % (auto) Anion Gap 12 Estim Creat Clear Calc 35.7 Estimated GFR 36 Random Glucose 100 Fasting Glucose Calcium 9.2 Assessment and Plan (1) Metabolic encephalopathy: Status: Acute (2) Delirium due to multiple etiologies, acute, hyperactive: Status: Acute Plan 66M with a past medical history of hypertension, hyperlipidemia, prostate cancer, anxiety, depression, BPH presented to the hospital with a chief complaint of alcohol withdrawal Metabolic encephalopathy 2/2 possibe inpatient delirium\ 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 Use Seroquel at bedtime Recurrent redirection alcohol dependence with withdrawal with delerium tremens Done with phenobarbital protocol DC CIWA Advice total abstinence from alcohol Continue thiamine and vitamins hyponatremia resolved recent left humeral fracture keep in sling PT/OT eval prostate ca becalutamide Jhonny on CKD III resolved, back to baseline creatinine 1.5-1.9 monitor BMP ? DVT prophylaxis:? Lovenox Code status: Full code Quality Stroke Does the patient have a stroke diagnosis?: No VTE Prior VTE?: No VTE Risk Level:: Medical - moderate - high VTE Device Contraindication: Treatment Not Indicated VTE Drug Contraindication: N/A - Med Ordered
[2021-10-09] MEDS: Atorvastatin Calcium 20 MG TABLET PO (10:46)
[2021-10-09] MEDS: PHENobarbitaL 15 MG TABLET PO (10:46)
[2021-10-09] MEDS: Famotidine 20 MG TABLET PO ×2 (10:46→21:01)
[2021-10-09] MEDS: 0.9 % Sodium Chloride Flush 3 ML SYRINGE IVFLUSH ×3 (10:46→21:01)
[2021-10-09] MEDS: QUEtiapine Fumarate 25 MG TABLET PO (10:47)
[2021-10-09] MEDS: buPROPion HCl XL 300 MG TAB.ER.24H PO (10:47)
[2021-10-09] MEDS: Multivitamin TABLET 1 TAB PO (10:47)
[2021-10-09] MEDS: Metoprolol Succinate ER 50 MG TAB.ER.24H PO (10:47)
[2021-10-09] MEDS: Cholecalciferol (Vitamin D3) 25 MCG TABLET 50 MCG PO (10:47)
[2021-10-09] MEDS: Sertraline HCL 100 MG TABLET PO (10:47)
[2021-10-09] MEDS: Aspirin Enteric Coated 81 MG TABLET.DR PO (10:47)
[2021-10-09] MEDS: Thiamine HCL 100 MG TABLET PO (10:47)
[2021-10-09] MEDS: hydrOXYzine HCL 25 MG TABLET PO ×2 (10:48→21:01)
[2021-10-09] MEDS: timoloL maleate 0.5 % Oph Sol 5 ML DRBTL 1 DROP EYE-LEFT (10:48)
--- NOTE | 2021-10-09 10:51 | P.CDIC_ITS ---
CDI Concurrent Query Documentation Clarification: PHYSICIAN'S DOCUMENTATION REQUEST Date of Query: 10/09/21 1052 Patient Name: Iván Yanez III Admit Date: 10/04/21 Dear Doctor, A review of the medical record indicates additional documentation may be needed. Please review below and update the documentation accordingly. 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 Based on the above, could you clarify in the Progress Notes the appropriate diagnosis, if significant, that supports the above abnormalities and additional evaluation, monitoring, and/or treatment rendered: * Wernicke Korsakoff's syndrome, Pyschotic * Wernicke Korsakoff's syndrome, Amnesic * Other (please specify) * Unable to determine Use of terms such as suspected, likely, concern for, or probable (associated with a specific diagnosis that is being evaluated, monitored, or treated as if it exists) are acceptable and can be coded in the inpatient setting, when documented at the time of discharge. Thank you, Susan Florian RN Extension: [phone] Please use your independent medical judgment in providing your response. THIS QUERY IS PART OF THE PERMANENT MEDICAL RECORD Provider Response: Other Other Diagnosis: Unable to determine, work up ongoing
--- NOTE | 2021-10-09 12:03 | MHC.CM.PN ---
Patient required a Sitter overnight 10/08/21; Sitter will be dc'd today, per ROUNDS discussion. CM will follow for, no sitter needed, for a minimum of 24 hours, prior to dc to SNF.
[2021-10-09] MEDS: QUEtiapine Fumarate 50 MG TABLET PO ×2 (17:01→21:01)
[2021-10-09] MEDS: Tamsulosin HCL 0.4 MG CAPSULE PO (21:01)
[2021-10-09] MEDS: Melatonin 3 MG TABLET 6 MG PO (21:01)
[2021-10-10] VITALS (13 sets, daily range): BP systolic 109–122; BP diastolic 57–72; PULSE 67–99; RESP 14–20; TEMP 36.4–37.7; O2SAT 92–99
[2021-10-10] MEDS: Enoxaparin Sodium 40 MG/0.4 ML SYRINGE SUBCUT (02:01)
[2021-10-10 07:16] LABS: Anion Gap 15 (12-20); Blood Urea Nitrogen 29 mg/dL (9-16); Carbon Dioxide 21 mmol/L (22-29); Chloride 106 mmol/L (96-108); Creatinine Clr Calc Pharmacy 38.3; Estimated Glomerular Filt Rate 39; Glucose Random 101 mg/dL (60-115); Sodium 138 mmol/L (135-145)
[2021-10-10] MEDS: Multivitamin TABLET 1 TAB PO (08:52)
[2021-10-10] MEDS: Famotidine 20 MG TABLET PO ×2 (08:52→21:36)
[2021-10-10] MEDS: Atorvastatin Calcium 20 MG TABLET PO (08:52)
[2021-10-10] MEDS: 0.9 % Sodium Chloride Flush 3 ML SYRINGE IVFLUSH ×3 (08:52→21:36)
[2021-10-10] MEDS: Cholecalciferol (Vitamin D3) 25 MCG TABLET 50 MCG PO (08:52)
[2021-10-10] MEDS: Thiamine HCL 100 MG TABLET PO (08:52)
[2021-10-10] MEDS: Metoprolol Succinate ER 50 MG TAB.ER.24H PO (08:52)
[2021-10-10] MEDS: Sertraline HCL 100 MG TABLET PO (08:52)
[2021-10-10] MEDS: Aspirin Enteric Coated 81 MG TABLET.DR PO (08:52)
[2021-10-10] MEDS: timoloL maleate 0.5 % Oph Sol 5 ML DRBTL 1 DROP EYE-LEFT (09:54)
--- NOTE | 2021-10-10 11:34 | MHC.CM.PN ---
Per ROUNDS discussion, STR/SNF remains to be the goal. Patient is sundowning and has continued to require a Sitter at [facility]. CM will follow
--- NOTE | 2021-10-10 11:46 | HO.PM.IMPN ---
Subjective Subjective Date of Service: 10/10/21 Interval History: the patient was seen and evaluated this morning Laying in bed, feels okay, confused at baseline Usually does well early in the morning but start to in the afternoon and becomes confused by the end of the day Less difficulties overnight, did not require any IV medications Sitter as needed, monitor by the camera No reported other overnight events. Systemic review: No fever, chills or weakness No chest pain, palpitation No shortness of breath or coughing No abdominal pain, nausea or vomiting No urinary symptoms No any rash or wounds Physical Exam Vital Signs: Vital Signs: Last Vital Signs Temp 98.6 F 10/10/21 10:00 Pulse 83 10/10/21 10:00 Resp 19 10/10/21 10:00 BP 109/57 L 10/10/21 10:00 Pulse Ox 98 10/10/21 10:00 BMI result Body Mass Index 25.8 Const: Other: Constitutional : Alert, interactive, confused, not in distress Neck : Normal inspection, Supple Cardiovascular : RRR, S1 S2, no lower extremity edema Respiratory : Good bilateral air entry, no crackles, wheezes or rhonchi Gastrointestinal: soft, lax, Normal bowel sounds, Non tender Skin : Warm, Dry Neurological : Alert & disoriented x3, No focal deficit, confabulating stories Objective Data Active Medications Aspirin (Aspirin Enteric Coated 81 Mg Tablet.) 81 mg PO DAILY [facility] Last Admin: 10/10/21 08:52 Dose: 81 mg Documented by: CURRY Atorvastatin Calcium (Atorvastatin Calcium 20 Mg Tablet) 20 mg PO DAILY [facility] Last Admin: 10/10/21 08:52 Dose: 20 mg Documented by: CURRY Bupropion HCl (Bupropion Hcl Xl 150 Mg Tab.Er.24h) 150 mg PO DAILY [facility] Enoxaparin Sodium (Enoxaparin Sodium 40 Mg/0.4 Ml Syringe) 40 mg SUBCUT Q24H [facility] Last Admin: 10/10/21 02:01 Dose: 40 mg Documented by: JEANNE Famotidine (Famotidine 20 Mg Tablet) 20 mg PO BID [facility] Last Admin: 10/10/21 08:52 Dose: 20 mg Documented by: CURRY Hydroxyzine HCl (Hydroxyzine Hcl 50 Mg Tablet) 50 mg PO BEDTIME PRN PRN Reason: anxiety/restlessness Hydroxyzine HCl (Hydroxyzine Hcl 50 Mg Tablet) 50 mg PO BEDTIME [facility] Loratadine (Loratadine 10 Mg Tablet) 10 mg PO DAILY PRN PRN Reason: allergies Medication (No Benzodiazepines) 1 each MISCELLANE DAILY [facility] Melatonin (Melatonin 3 Mg Tablet) 6 mg PO BEDTIME PRN PRN Reason: Insomnia Last Admin: 10/09/21 21:01 Dose: 6 mg Documented by: JEANNE Metoprolol Succinate (Metoprolol Succinate Er 50 Mg Tab.Er.24h) 50 mg PO DAILY [facility]; Protocol Last Admin: 10/10/21 08:52 Dose: 50 mg Documented by: CURRY Multivitamins/Vitamin C (Multivitamin Tablet) 1 tab PO DAILY [facility] Last Admin: 10/10/21 08:52 Dose: 1 tab Documented by: CURRY Pharmacy Consult (Consult Rx Perform Med Rec) 1 each MISCELLANE ONCE PRN PRN Reason: Consult order Quetiapine Fumarate (Quetiapine Fumarate 50 Mg Tablet) 50 mg PO DAILY@1700 [facility] Last Admin: 10/09/21 17:01 Dose: 50 mg Documented by: VINCENZO Quetiapine Fumarate (Quetiapine Fumarate 50 Mg Tablet) 50 mg PO BEDTIME PRN PRN Reason: anxiety/restlessness Last Admin: 10/09/21 21:01 Dose: 50 mg Documented by: JEANNE Senna (Sennosides 8.6 Mg Tablet) 17.2 mg PO BEDTIME PRN PRN Reason: Constipation Sertraline HCl (Sertraline Hcl 100 Mg Tablet) 100 mg PO DAILY [facility] Last Admin: 10/10/21 08:52 Dose: 100 mg Documented by: CURRY Sodium Chloride (0.9 % Sodium Chloride Flush 3 Ml Syringe) 3 ml IVFLUSH QSHIFT [facility] Last Admin: 10/10/21 08:52 Dose: 3 ml Documented by: CURRY Tamsulosin HCl (Tamsulosin Hcl 0.4 Mg Capsule) 0.4 mg PO BEDTIME [facility] Last Admin: 10/09/21 21:01 Dose: 0.4 mg Documented by: JEANNE Thiamine HCl (Thiamine Hcl 100 Mg Tablet) 100 mg PO DAILY [facility] Last Admin: 10/10/21 08:52 Dose: 100 mg Documented by: CURRY Timolol Maleate (Timolol Maleate 0.5 % Oph Lina 5 Ml Drbtl) 1 drop EYE-LEFT DAILY [facility] Last Admin: 10/10/21 09:54 Dose: 1 drop Documented by: CURRY Vitamin D (Cholecalciferol (Vitamin D3) 25 Mcg Tablet) 50 mcg PO DAILY [facility] Last Admin: 10/10/21 08:52 Dose: 50 mcg Documented by: CURRY Labs CBC & Chem 7: 10/09/21 06:27 10/10/21 06:36 Labs: Laboratory Results - last 24 hr 10/10/21 06:36 Anion Gap 15 Estim Creat Clear Calc 38.3 Estimated GFR 39 Random Glucose 101 Calcium 9.0 Assessment and Plan (1) Delirium due to multiple etiologies, acute, hyperactive: Status: Acute (2) Metabolic encephalopathy: Status: Acute (3) Alcoholic dementia: Status: Acute Plan 66M with a past medical history of hypertension, hyperlipidemia, prostate cancer, anxiety, depression, BPH presented to the hospital with a chief complaint of alcohol withdrawal Metabolic encephalopathy 2/2 possibe inpatient delirium\ alcoholic dementia \medications continues to improve, agitated on occasions Remains confused with confabulation and very poor short term memory Decrease the Bupropion Use Atarax and Seroquel p.r.n. Use Seroquel daily and at bedtime Recurrent redirection alcohol withdrawal with delerium tremens Done with phenobarbital protocol DC CIWA Advice total abstinence from alcohol Continue thiamine and vitamins hyponatremia resolved recent left humeral fracture keep in sling PT/OT eval prostate ca becalutamide Jhonny on CKD III resolved, back to baseline creatinine 1.5-1.9 monitor BMP ? DVT prophylaxis:? Lovenox Code status: Full code Dispo, physical deconditioning requiring placement. Would prefer looking into dementia unit as he will be difficult to accommodate his sundowning Quality Stroke Does the patient have a stroke diagnosis?: No VTE Prior VTE?: No VTE Risk Level:: Medical - moderate - high VTE Device Contraindication: Treatment Not Indicated VTE Drug Contraindication: N/A - Med Ordered
[2021-10-10] MEDS: QUEtiapine Fumarate 50 MG TABLET PO ×3 (12:22→21:36)
[2021-10-10] MEDS: Tamsulosin HCL 0.4 MG CAPSULE PO (21:36)
[2021-10-10] MEDS: hydrOXYzine HCL 50 MG TABLET PO (21:36)
[2021-10-11] VITALS (8 sets, daily range): BP systolic 114–159; BP diastolic 59–78; PULSE 66–88; RESP 18–20; TEMP 36.8–37.3; O2SAT 96–98
[2021-10-11] MEDS: Enoxaparin Sodium 40 MG/0.4 ML SYRINGE SUBCUT (04:06)
[2021-10-11] MEDS: Cholecalciferol (Vitamin D3) 25 MCG TABLET 50 MCG PO (09:00)
[2021-10-11] MEDS: Aspirin Enteric Coated 81 MG TABLET.DR PO (09:42)
[2021-10-11] MEDS: Famotidine 20 MG TABLET PO ×2 (10:43→20:34)
[2021-10-11] MEDS: buPROPion HCl XL 150 MG TAB.ER.24H PO (10:43)
[2021-10-11] MEDS: Thiamine HCL 100 MG TABLET PO (10:43)
[2021-10-11] MEDS: Multivitamin TABLET 1 TAB PO (10:43)
[2021-10-11] MEDS: Atorvastatin Calcium 20 MG TABLET PO (10:44)
[2021-10-11] MEDS: Sertraline HCL 100 MG TABLET PO (10:45)
[2021-10-11] MEDS: Metoprolol Succinate ER 50 MG TAB.ER.24H PO (10:45)
[2021-10-11] MEDS: 0.9 % Sodium Chloride Flush 3 ML SYRINGE IVFLUSH ×2 (10:45→20:36)
--- NOTE | 2021-10-11 11:33 | P.PNIM_ITS ---
Subjective Subjective Date of Service: 10/11/21 Interval History: the patient was seen and evaluated this morning Laying in bed, feels okay, confused at baseline Requiring sitter and soft restraint did not require any IV medications but was awake for large part of the night No reported other overnight events. Review of Systems No fever, chills but has generalized weakness No chest pain, palpitation No shortness of breath or coughing No abdominal pain, nausea or vomiting No urinary symptoms No any rash or wounds Physical Exam Vital Signs: Vital Signs: Last Vital Signs Temp 98.5 F 10/11/21 10:00 Pulse 79 10/11/21 10:00 Resp 18 10/11/21 10:00 BP 122/63 10/11/21 10:00 Pulse Ox 97 10/11/21 10:00 BMI result Body Mass Index 25.8 Const: Other: Constitutional : Alert with stimulation interactive, confused, not in distress Neck : Normal inspection, Supple Cardiovascular : RRR, S1 S2, no lower extremity edema Respiratory : Good bilateral air entry, no crackles, wheezes or rhonchi Gastrointestinal: soft, lax, Normal bowel sounds, Non tender Skin : Warm, Dry Neurological : Alert & disoriented x3, No focal deficit, confabulating stories Objective Data Active Medications Aspirin (Aspirin Enteric Coated 81 Mg Tablet.) 81 mg PO DAILY [facility] Last Admin: 10/11/21 09:42 Dose: 81 mg Documented by: SAMARIA Atorvastatin Calcium (Atorvastatin Calcium 20 Mg Tablet) 20 mg PO DAILY [facility] Last Admin: 10/11/21 10:44 Dose: 20 mg Documented by: SAMARIA Bupropion HCl (Bupropion Hcl Xl 150 Mg Tab.Er.24h) 150 mg PO DAILY [facility] Last Admin: 10/11/21 10:43 Dose: 150 mg Documented by: SAMARIA Enoxaparin Sodium (Enoxaparin Sodium 40 Mg/0.4 Ml Syringe) 40 mg SUBCUT Q24H [facility] Last Admin: 10/11/21 04:06 Dose: 40 mg Documented by: KEVIN Famotidine (Famotidine 20 Mg Tablet) 20 mg PO BID [facility] Last Admin: 10/11/21 10:43 Dose: 20 mg Documented by: SAMARIA Loratadine (Loratadine 10 Mg Tablet) 10 mg PO DAILY PRN PRN Reason: allergies Medication (No Benzodiazepines) 1 each MISCELLANE DAILY [facility] Melatonin (Melatonin 3 Mg Tablet) 6 mg PO BEDTIME PRN PRN Reason: Insomnia Last Admin: 10/09/21 21:01 Dose: 6 mg Documented by: JEANNE Metoprolol Succinate (Metoprolol Succinate Er 50 Mg Tab.Er.24h) 50 mg PO DAILY [facility]; Protocol Last Admin: 10/11/21 10:45 Dose: 50 mg Documented by: SAMARIA Multivitamins/Vitamin C (Multivitamin Tablet) 1 tab PO DAILY [facility] Last Admin: 10/11/21 10:43 Dose: 1 tab Documented by: SAMARIA Pharmacy Consult (Consult Rx Perform Med Rec) 1 each MISCELLANE ONCE PRN PRN Reason: Consult order Quetiapine Fumarate (Quetiapine Fumarate 25 Mg Tablet) 75 mg PO BEDTIME [facility] Quetiapine Fumarate (Quetiapine Fumarate 50 Mg Tablet) 50 mg PO DAILY@1300 [facility] Quetiapine Fumarate (Quetiapine Fumarate 25 Mg Tablet) 25 mg PO Q8H PRN PRN Reason: anxiety/restlessness Senna (Sennosides 8.6 Mg Tablet) 17.2 mg PO BEDTIME PRN PRN Reason: Constipation Sertraline HCl (Sertraline Hcl 100 Mg Tablet) 100 mg PO DAILY [facility] Last Admin: 10/11/21 10:45 Dose: 100 mg Documented by: SAMARIA Sodium Chloride (0.9 % Sodium Chloride Flush 3 Ml Syringe) 3 ml IVFLUSH QSHIFT [facility] Last Admin: 10/11/21 10:45 Dose: 3 ml Documented by: SAMARIA Tamsulosin HCl (Tamsulosin Hcl 0.4 Mg Capsule) 0.4 mg PO BEDTIME [facility] Last Admin: 10/10/21 21:36 Dose: 0.4 mg Documented by: KEVIN Thiamine HCl (Thiamine Hcl 100 Mg Tablet) 100 mg PO DAILY [facility] Last Admin: 10/11/21 10:43 Dose: 100 mg Documented by: SAMARIA Timolol Maleate (Timolol Maleate 0.5 % Oph Lina 5 Ml Drbtl) 1 drop EYE-LEFT DAILY [facility] Last Admin: 10/11/21 10:46 Dose: Not Given Documented by: SAMARIA Non-Admin Reason: Patient Refused Vitamin D (Cholecalciferol (Vitamin D3) 25 Mcg Tablet) 50 mcg PO DAILY [facility] Last Admin: 10/11/21 09:00 Dose: 50 mcg Documented by: SAMARIA Labs CBC & Chem 7: 10/09/21 06:27 10/10/21 06:36 Assessment and Plan (1) Alcoholic dementia: Status: Acute (2) Delirium due to multiple etiologies, acute, hyperactive: Status: Acute (3) Metabolic encephalopathy: Status: Acute Plan 66M with a past medical history of hypertension, hyperlipidemia, prostate cancer, anxiety, depression, BPH presented to the hospital with a chief complaint of alcohol withdrawal Metabolic encephalopathy 2/2 inpatient delirium\ alcoholic dementia \medications Fluctuate between the day and night Remains confused with confabulation and very poor short term memory Decrease the Bupropion and hold Atarax Seroquel p.r.n. Use Seroquel daily and at bedtime Recurrent redirection alcohol withdrawal with delerium tremens Done with phenobarbital protocol DC CIWA Advice total abstinence from alcohol Continue thiamine and vitamins hyponatremia resolved recent left humeral fracture keep in sling PT/OT eval prostate ca becalutamide Jhonny on CKD III resolved, back to baseline creatinine 1.5-1.9 monitor BMP ? DVT prophylaxis:? Lovenox Code status: Full code Dispo, physical deconditioning requiring placement. Would prefer looking into dementia unit as he will be difficult to accommodate his Quality Stroke Does the patient have a stroke diagnosis?: No VTE Prior VTE?: No VTE Risk Level:: Medical - moderate - high VTE Device Contraindication: Treatment Not Indicated VTE Drug Contraindication: N/A - Med Ordered
[2021-10-11] MEDS: QUEtiapine Fumarate 50 MG TABLET PO (12:49)
--- NOTE | 2021-10-11 19:30 | PC.NURSE ---
PT WAS CALM AND COOPERATIVE TODAY, RESTRAINTS WERE RELEASE AND HE MAINTAINED HIS BEHAVIOR. PT AMBULATED TO BATHROOM, HOWEVER TOOK OVER 30 MINUTES TO REDIRECT HIM.HIS SON CAME IN AND PT BECAME MORE COMPLIANT AND COOPERATIVE
[2021-10-11] MEDS: Melatonin 3 MG TABLET 6 MG PO (20:35)
[2021-10-11] MEDS: Tamsulosin HCL 0.4 MG CAPSULE PO (20:35)
[2021-10-11] MEDS: QUEtiapine Fumarate 25 MG TABLET 75 MG PO (20:35)
[2021-10-12] VITALS: BP 121/71; PULSE 76; RESP 20; TEMP 36.5; O2SAT 96
[2021-10-12] MEDS: Enoxaparin Sodium 40 MG/0.4 ML SYRINGE SUBCUT (03:04)
[2021-10-12 03:50] VITALS: BP 117/64; PULSE 77; RESP 20; TEMP 36.2; O2SAT 96
[2021-10-12 08:00] VITALS: BP 114/70; PULSE 85; RESP 18; TEMP 36.8; O2SAT 97
[2021-10-12] MEDS: Metoprolol Succinate ER 50 MG TAB.ER.24H PO (09:04)
[2021-10-12] MEDS: Sertraline HCL 100 MG TABLET PO (09:04)
[2021-10-12] MEDS: buPROPion HCl XL 150 MG TAB.ER.24H PO (09:04)
[2021-10-12] MEDS: Aspirin Enteric Coated 81 MG TABLET.DR PO (09:04)
[2021-10-12] MEDS: Famotidine 20 MG TABLET PO ×2 (09:04→20:01)
[2021-10-12] MEDS: Atorvastatin Calcium 20 MG TABLET PO (09:05)
[2021-10-12] MEDS: Cholecalciferol (Vitamin D3) 25 MCG TABLET 50 MCG PO (09:05)
[2021-10-12] MEDS: Multivitamin TABLET 1 TAB PO (09:05)
[2021-10-12] MEDS: Thiamine HCL 100 MG TABLET PO (09:05)
[2021-10-12] MEDS: 0.9 % Sodium Chloride Flush 3 ML SYRINGE IVFLUSH ×3 (09:07→20:01)
[2021-10-12] MEDS: timoloL maleate 0.5 % Oph Sol 5 ML DRBTL 1 DROP EYE-LEFT (09:13)
--- NOTE | 2021-10-12 09:50 | P.PNIM_ITS ---
Subjective Subjective Date of Service: 10/12/21 Interval History: The patient was seen and evaluated this morning Laying in bed, feels okay Had good night overnight did not require any extra medications No reported other overnight events. Review of Systems No fever, chills but has generalized weakness No chest pain, palpitation No shortness of breath or coughing No abdominal pain, nausea or vomiting No urinary symptoms No any rash or wounds Physical Exam Vital Signs: Vital Signs: Last Vital Signs Temp 98.2 F 10/12/21 08:00 Pulse 85 10/12/21 08:00 Resp 18 10/12/21 08:00 BP 114/70 10/12/21 08:00 Pulse Ox 97 10/12/21 08:00 BMI result Body Mass Index 25.8 Const: Other: Constitutional : Alert with stimulation interactive, not in distress Neck : Normal inspection, Supple Cardiovascular : RRR, S1 S2, no lower extremity edema Respiratory : Good bilateral air entry, no crackles, wheezes or rhonchi Gastrointestinal: soft, lax, Normal bowel sounds, Non tender Skin : Warm, Dry Neurological : Alert & disoriented x3, No focal deficit, confabulating stories Objective Data Active Medications Aspirin (Aspirin Enteric Coated 81 Mg Tablet.) 81 mg PO DAILY [facility] Last Admin: 10/12/21 09:04 Dose: 81 mg Documented by: SAMARIA Atorvastatin Calcium (Atorvastatin Calcium 20 Mg Tablet) 20 mg PO DAILY [facility] Last Admin: 10/12/21 09:05 Dose: 20 mg Documented by: SAMARIA Bupropion HCl (Bupropion Hcl Xl 150 Mg Tab.Er.24h) 150 mg PO DAILY [facility] Last Admin: 10/12/21 09:04 Dose: 150 mg Documented by: SAMARIA Enoxaparin Sodium (Enoxaparin Sodium 40 Mg/0.4 Ml Syringe) 40 mg SUBCUT Q24H [facility] Last Admin: 10/12/21 03:04 Dose: 40 mg Documented by: KEVIN Famotidine (Famotidine 20 Mg Tablet) 20 mg PO BID [facility] Last Admin: 10/12/21 09:04 Dose: 20 mg Documented by: SAMARIA Loratadine (Loratadine 10 Mg Tablet) 10 mg PO DAILY PRN PRN Reason: allergies Medication (No Benzodiazepines) 1 each MISCELLANE DAILY [facility] Melatonin (Melatonin 3 Mg Tablet) 6 mg PO BEDTIME PRN PRN Reason: Insomnia Last Admin: 10/11/21 20:35 Dose: 6 mg Documented by: KEVIN Metoprolol Succinate (Metoprolol Succinate Er 50 Mg Tab.Er.24h) 50 mg PO DAILY [facility]; Protocol Last Admin: 10/12/21 09:04 Dose: 50 mg Documented by: SAMARIA Multivitamins/Vitamin C (Multivitamin Tablet) 1 tab PO DAILY [facility] Last Admin: 10/12/21 09:05 Dose: 1 tab Documented by: SAMARIA Pharmacy Consult (Consult Rx Perform Med Rec) 1 each MISCELLANE ONCE PRN PRN Reason: Consult order Quetiapine Fumarate (Quetiapine Fumarate 25 Mg Tablet) 75 mg PO BEDTIME [facility] Last Admin: 10/11/21 20:35 Dose: 75 mg Documented by: KEVIN Quetiapine Fumarate (Quetiapine Fumarate 50 Mg Tablet) 50 mg PO DAILY@1300 [facility] Last Admin: 10/11/21 12:49 Dose: 50 mg Documented by: SAMARIA Quetiapine Fumarate (Quetiapine Fumarate 25 Mg Tablet) 25 mg PO Q8H PRN PRN Reason: anxiety/restlessness Senna (Sennosides 8.6 Mg Tablet) 17.2 mg PO BEDTIME PRN PRN Reason: Constipation Sertraline HCl (Sertraline Hcl 100 Mg Tablet) 100 mg PO DAILY [facility] Last Admin: 10/12/21 09:04 Dose: 100 mg Documented by: SAMARIA Sodium Chloride (0.9 % Sodium Chloride Flush 3 Ml Syringe) 3 ml IVFLUSH [facility] Last Admin: 10/12/21 09:07 Dose: 3 ml Documented by: SAMARIA Tamsulosin HCl (Tamsulosin Hcl 0.4 Mg Capsule) 0.4 mg PO BEDTIME [facility] Last Admin: 10/11/21 20:35 Dose: 0.4 mg Documented by: KEVIN Thiamine HCl (Thiamine Hcl 100 Mg Tablet) 100 mg PO DAILY [facility] Last Admin: 10/12/21 09:05 Dose: 100 mg Documented by: SAMARIA Timolol Maleate (Timolol Maleate 0.5 % Oph Lina 5 Ml Drbtl) 1 drop EYE-LEFT DAILY [facility] Last Admin: 02/12/22 10:46 Dose: Not Given Documented by: SAMARIA Non-Admin Reason: Patient Refused Vitamin D (Cholecalciferol (Vitamin D3) 25 Mcg Tablet) 50 mcg PO DAILY [facility] Last Admin: 10/12/21 09:05 Dose: 50 mcg Documented by: SAMARIA Labs CBC & Chem 7: 10/09/21 06:27 10/10/21 06:36 Assessment and Plan (1) Alcoholic dementia: Status: Acute (2) Delirium due to multiple etiologies, acute, hyperactive: Status: Acute (3) Metabolic encephalopathy: Status: Acute Plan 66M with a past medical history of hypertension, hyperlipidemia, prostate cancer, anxiety, depression, BPH presented to the hospital with a chief complai nt of alcohol withdrawal Metabolic encephalopathy 2/2 inpatient delirium\ alcoholic dementia \medications Fluctuate between the day and night Remains confused with confabulation and very poor short term memory Decrease the Bupropion and hold Atarax Seroquel p.r.n. Use Seroquel daily and at bedtime Recurrent redirection alcohol withdrawal with delerium tremens Done with phenobarbital protocol DC CIWA Advice total abstinence from alcohol Continue thiamine and vitamins hyponatremia resolved recent left humeral fracture keep in sling PT/OT eval prostate ca becalutamide Jhonny on CKD III resolved, back to baseline creatinine 1.5-1.9 monitor BMP ? DVT prophylaxis:? Lovenox Code status: Full code Dispo, physical deconditioning requiring placement. Would prefer looking into dementia unit as he will be difficult to accommodate his Quality Stroke Does the patient have a stroke diagnosis?: No VTE Prior VTE?: No VTE Risk Level:: Medical - moderate - high VTE Device Contraindication: Treatment Not Indicated VTE Drug Contraindication: N/A - Med Ordered
[2021-10-12 11:56] VITALS: BP 120/72; PULSE 81; RESP 19; TEMP 37.1; O2SAT 97
[2021-10-12] MEDS: QUEtiapine Fumarate 50 MG TABLET PO (12:13)
[2021-10-12 15:32] VITALS: BP 143/82; PULSE 73; RESP 18; TEMP 37.1; O2SAT 98
--- NOTE | 2021-10-12 18:21 | PC.NURSE ---
Pt was without sitter present in room for the day, just standby supervision; pt has not been in restraints and been cooperative but still confused.
[2021-10-12] MEDS: QUEtiapine Fumarate 25 MG TABLET 75 MG PO (20:01)
[2021-10-12] MEDS: Melatonin 3 MG TABLET 6 MG PO (20:01)
[2021-10-12] MEDS: Tamsulosin HCL 0.4 MG CAPSULE PO (20:01)
[2021-10-13] VITALS (7 sets, daily range): BP systolic 104–159; BP diastolic 70–76; PULSE 67–83; RESP 16–19; TEMP 36.4–37.1; O2SAT 94–100
[2021-10-13] MEDS: Multivitamin TABLET 1 TAB PO (08:45)
[2021-10-13] MEDS: Metoprolol Succinate ER 50 MG TAB.ER.24H PO (08:45)
[2021-10-13] MEDS: 0.9 % Sodium Chloride Flush 3 ML SYRINGE IVFLUSH (08:45)
[2021-10-13] MEDS: Aspirin Enteric Coated 81 MG TABLET.DR PO (08:45)
[2021-10-13] MEDS: Famotidine 20 MG TABLET PO ×2 (08:46→20:34)
[2021-10-13] MEDS: Cholecalciferol (Vitamin D3) 25 MCG TABLET 50 MCG PO (08:50)
[2021-10-13] MEDS: Atorvastatin Calcium 20 MG TABLET PO (08:51)
[2021-10-13] MEDS: Thiamine HCL 100 MG TABLET PO (08:51)
[2021-10-13] MEDS: timoloL maleate 0.5 % Oph Sol 5 ML DRBTL 1 DROP EYE-LEFT (08:52)
[2021-10-13] MEDS: buPROPion HCl XL 150 MG TAB.ER.24H PO (08:53)
[2021-10-13] MEDS: Sertraline HCL 100 MG TABLET PO (08:57)
--- NOTE | 2021-10-13 11:35 | HO.PM.IMPN ---
Subjective Subjective Date of Service: 10/13/21 Interval History: The patient was seen and evaluated this morning Laying in bed, feels okay Had good night overnight did not require any extra medications No reported other overnight events. Review of Systems No fever, chills but has generalized weakness No chest pain, palpitation No shortness of breath or coughing No abdominal pain, nausea or vomiting No urinary symptoms No any rash or wounds Physical Exam Vital Signs: Vital Signs: Last Vital Signs Temp 97.5 F 10/13/21 11:31 Pulse 67 10/13/21 11:31 Resp 16 10/13/21 11:31 BP 118/73 10/13/21 11:31 Pulse Ox 97 10/13/21 11:31 BMI result Body Mass Index 25.8 Const: Other: Constitutional : Alert with stimulation interactive, not in distress Neck : Normal inspection, Supple Cardiovascular : RRR, S1 S2, no lower extremity edema Respiratory : Good bilateral air entry, no crackles, wheezes or rhonchi Gastrointestinal: soft, lax, Normal bowel sounds, Non tender Skin : Warm, Dry Neurological : Alert & disoriented x3, No focal deficit, confabulating stories Objective Data Active Medications Aspirin (Aspirin Enteric Coated 81 Mg Tablet.) 81 mg PO DAILY [facility] Last Admin: 10/13/21 08:45 Dose: 81 mg Documented by: KIRAN Atorvastatin Calcium (Atorvastatin Calcium 20 Mg Tablet) 20 mg PO DAILY [facility] Last Admin: 10/13/21 08:51 Dose: 20 mg Documented by: KIRAN Bupropion HCl (Bupropion Hcl Xl 150 Mg Tab.Er.24h) 150 mg PO DAILY [facility] Last Admin: 10/13/21 08:53 Dose: 150 mg Documented by: KIRAN Enoxaparin Sodium (Enoxaparin Sodium 40 Mg/0.4 Ml Syringe) 40 mg SUBCUT Q24H [facility] Last Admin: 10/13/21 03:26 Dose: Not Given Documented by: MELLISSA Non-Admin Reason: Patient Refused Famotidine (Famotidine 20 Mg Tablet) 20 mg PO BID [facility] Last Admin: 10/13/21 08:46 Dose: 20 mg Documented by: KIRAN Loratadine (Loratadine 10 Mg Tablet) 10 mg PO DAILY PRN PRN Reason: allergies Medication (No Benzodiazepines) 1 each MISCELLANE DAILY [facility] Melatonin (Melatonin 3 Mg Tablet) 6 mg PO BEDTIME PRN PRN Reason: Insomnia Last Admin: 10/12/21 20:01 Dose: 6 mg Documented by: MELLISSA Metoprolol Succinate (Metoprolol Succinate Er 50 Mg Tab.Er.24h) 50 mg PO DAILY [facility]; Protocol Last Admin: 10/13/21 08:45 Dose: 50 mg Documented by: KIRAN Multivitamins/Vitamin C (Multivitamin Tablet) 1 tab PO DAILY [facility] Last Admin: 10/13/21 08:45 Dose: 1 tab Documented by: KIRAN Pharmacy Consult (Consult Rx Perform Med Rec) 1 each MISCELLANE ONCE PRN PRN Reason: Consult order Quetiapine Fumarate (Quetiapine Fumarate 25 Mg Tablet) 75 mg PO BEDTIME [facility] Last Admin: 10/12/21 20:01 Dose: 75 mg Documented by: MELLISSA Quetiapine Fumarate (Quetiapine Fumarate 50 Mg Tablet) 50 mg PO DAILY@1300 [facility] Last Admin: 10/12/21 12:13 Dose: 50 mg Documented by: SAMARIA Quetiapine Fumarate (Quetiapine Fumarate 25 Mg Tablet) 25 mg PO Q8H PRN PRN Reason: anxiety/restlessness Senna (Sennosides 8.6 Mg Tablet) 17.2 mg PO BEDTIME PRN PRN Reason: Constipation Sertraline HCl (Sertraline Hcl 100 Mg Tablet) 100 mg PO DAILY [facility] Last Admin: 10/13/21 08:57 Dose: 100 mg Documented by: KIRAN Sodium Chloride (0.9 % Sodium Chloride Flush 3 Ml Syringe) 3 ml IVFLUSH [facility] Last Admin: 10/13/21 08:45 Dose: 3 ml Documented by: KIRAN Tamsulosin HCl (Tamsulosin Hcl 0.4 Mg Capsule) 0.4 mg PO BEDTIME [facility] Last Admin: 10/12/21 20:01 Dose: 0.4 mg Documented by: MELLISSA Thiamine HCl (Thiamine Hcl 100 Mg Tablet) 100 mg PO DAILY [facility] Last Admin: 10/13/21 08:51 Dose: 100 mg Documented by: KIRAN Timolol Maleate (Timolol Maleate 0.5 % Oph Lina 5 Ml Drbtl) 1 drop EYE-LEFT DAILY [facility] Last Admin: 10/13/21 08:52 Dose: 1 drop Documented by: KIRAN Vitamin D (Cholecalciferol (Vitamin D3) 25 Mcg Tablet) 50 mcg PO DAILY [facility] Last Admin: 10/13/21 08:50 Dose: 50 mcg Documented by: KIRAN Labs CBC & Chem 7: 10/09/21 06:27 10/10/21 06:36 Assessment and Plan (1) Alcoholic dementia: Status: Acute (2) Delirium due to multiple etiologies, acute, hyperactive: Status: Acute (3) Metabolic encephalopathy: Status: Acute Plan 66M with a past medical history of hypertension, hyperlipidemia, prostate cancer, anxiety, depression, BPH presented to the hospital with a chief complaint of alcohol withdrawal Metabolic encephalopathy 2/2 inpatient delirium\ alcoholic dementia \medications Fluctuate between the day and night Remains confused with confabulation and very poor short term memory Decrease the Bupropion and hold Atarax Seroquel p.r.n. Use Seroquel daily and at bedtime Recurrent redirection alcohol withdrawal with delerium tremens Done with phenobarbital protocol DC CIWA Advice total abstinence from alcohol Continue thiamine and vitamins hyponatremia resolved recent left humeral fracture keep in sling PT/OT eval prostate ca becalutamide Jhonny on CKD III resolved, back to baseline creatinine 1.5-1.9 monitor BMP ? DVT prophylaxis:? Lovenox Code status: Full code Dispo, physical deconditioning requiring placement. Would prefer looking into dementia unit as he will be difficult to accommodate his Quality Stroke Does the patient have a stroke diagnosis?: No VTE Prior VTE?: No VTE Risk Level:: Medical - moderate - high VTE Device Contraindication: Treatment Not Indicated VTE Drug Contraindication: N/A - Med Ordered
--- NOTE | 2021-10-13 13:04 | PM.DS ---
DS: Providers Provider Date of Service: 10/14/21 Date of admission: 10/04/21 02:12 Primary care physician: Karmen Girard DO DS: Diagnosis Discharge Diagnosis (1) Alcoholic dementia: Status: Acute (2) Delirium due to multiple etiologies, acute, hyperactive: Status: Acute (3) Metabolic encephalopathy: Status: Acute (4) Alcohol withdrawal: Status: Acute (5) Acute renal failure superimposed on stage 3 chronic kidney disease: Status: Acute (6) Hyponatremia: Status: Acute (7) Humeral fracture: Status: Acute DS: Summary Hospital Course Hospital Course: Admission note HPI ?66-year-old male with a past medical history of hypertension, hyperlipidemia, prostate cancer, anxiety, depression, BPH presented to the hospital with a chief complaint of alcohol withdrawal. ?patient has the recent fracture of his left upper extremity; since then he has been? not drinking like he used to.? We, tremulous and shaky hence brought in with the family to the hospital for possible alcohol withdrawal.? At the time of my entry patient already received Ativan and phenobarbital, sleeping,? snoring. Spoke to the RN at bedside, reports patient was brought in by the family Will withdrawals.? Patient was noted to be confused and hallucinating. ? ER team reported that patient noted to be in alcohol withdrawal, started on phenobarb protocol.? Also received Ativan.? Patient on nasally hallucinating visually.? Currently, and cooperative.? Also noted to have mild DANO and hyperkalemia.? Given normal saline in the ER.? Admitted to the hospital for further management Hospital course The patient was admitted to the hospital secondary to metabolic encephalopathy from alcohol withdrawal. He was started phenobarbital protocol with fair response over the course of hospital stay as his withdrawal symptoms rate totally resolved. It was noted that his mentation Fluctuate between the day and night. Remains confused with confabulation and very poor short term memory suggestive of alcoholic dementia given CT scan of the brain showing no acute findings but chronic cortical loss. Decrease the Bupropion and hold Atarax during the hospital stay with adding Seroquel was helpful to control the patient's symptoms as the sitter was taken off for 2 nights and he was able to work out with physical therapy who recommended short-term [facility] stay. At time of presentation he had acute kidney injury on top of CKD stage 3. Improved back to baseline creatinine between 1.5-1.9. Noted to have hyponatremia which resolved with usage of IV fluid and when he started to eat. He has a recent left humeral fracture. Evaluated by x-ray that showed Stable alignment of proximal left humeral fracture.? Expected length of stay less than 30 days in SNF He still needs recurrent redirection. Start Seroquel as prescribed, still needs adjustments of his bupropion and Atarax Advice total abstinence from alcohol Continue thiamine and vitamins Time Spent with Patient Time attestation: Total time spent providing and/or coordinating discharge services: Discharge coordination time: Greater than 30 minutes Quality: Stroke Does the patient have a stroke diagnosis?: No Physical Exam Vital Signs: Vital Signs: Last Vital Signs Temp 97.5 F 10/13/21 11:31 Pulse 67 10/13/21 11:31 Resp 16 10/13/21 11:31 BP 118/73 10/13/21 11:31 Pulse Ox 97 10/13/21 11:31 BMI result Body Mass Index 25.8 Const: Other: Constitutional : Alert , interactive, not in distress Neck : Normal inspection, Supple Cardiovascular : RRR, S1 S2, no lower extremity edema Respiratory : Good bilateral air entry, no crackles, wheezes or rhonchi Gastrointestinal: soft, lax, Normal bowel sounds, Non tender Skin : Warm, Dry Neurological : Alert & oriented to self and place, needs redirection, No focal deficit, confabulating stories Discharge Plan Discharge Patient Disposition: Xfer SNF Discharge Diagnosis: Metabolic encephalopathy Alcohol withdrawal Alcoholic dementia Physical deconditioning Referrals: Karmen Girard DO [Primary Care Provider] - 1 Week Discharge Medications: New multivitamin [Daily-Cricket] Tablet 1 tab PO DAILY Qty: 30 0RF quetiapine 25 mg Tablet 75 mg PO BEDTIME 30 Days Qty: 90 0RF famotidine 20 mg Tablet 20 mg PO BID 30 Days Qty: 60 0RF quetiapine 50 mg Tablet 50 mg PO DAILY@1300 30 Days 0RF Continued bupropion HCl 150 mg tablet sustained-release 12 hr 150 mg PO BID 0RF thiamine HCl (vitamin B1) 100 mg tablet 1 tab PO DAILY 0RF aspirin 81 mg tablet,delayed release (DR/EC) 1 tab PO DAILY 0RF acetaminophen [Arthritis Pain Relief (acetam)] 650 mg tablet extended release 1 tab PO Q8H PRN (Reason: Pain) 0RF folic acid 1 mg tablet 1 tab PO DAILY 0RF loratadine 10 mg tablet 1 tab PO DAILY PRN (Reason: allergies) 0RF nicotine (polacrilex) 2 mg lozenge 1 marichuy PO Q4H PRN (Reason: Smoking Cessation) 0RF cholecalciferol (vitamin D3) 50 mcg (2,000 unit) capsule 1 cap PO DAILY 0RF sertraline 50 mg tablet 100 mg PO DAILY 0RF fluticasone propionate 50 mcg/actuation spray,suspension 2 spray intranasal DAILY 0RF tamsulosin 0.4 mg capsule 0.4 mg PO BEDTIME 0RF metoprolol succinate 50 mg tablet extended release 24 hr 50 mg PO DAILY 0RF atorvastatin 20 mg tablet 20 mg PO DAILY 0RF timolol maleate 0.5 % drops 1 drp ophthalmic-Left DAILY 0RF Changed hydroxyzine pamoate 25 mg capsule 25 mg PO BID PRN (Reason: Anxiety) Qty: 0 0RF Discharge Orders: Discharge Order (Routine); Ordered 10/14/21 Ordered By: Staci Pickens Diet: advance to usual diet Activity on Discharge: As tolerated Stand Alone Forms: Patient Portal Discharge page Care Plan Goals: Read below Health Concerns: Read below Plan of Treatment: Read below Assessment: You were admitted to the hospital for evaluation of altered mentation. Found to be in alcohol withdrawal treated with phenobarbital protocol with fair response. Noticed to have confusion and sundowning controlled with Seroquel and recurrent redirection. Evaluated by physical therapy team who recommended short-term rehab stay. continue medications as prescribed Start physical therapy To follow-up with your PCP as scheduled
[2021-10-13] MEDS: QUEtiapine Fumarate 50 MG TABLET PO (13:26)
[2021-10-13 14:09] LABS: Influenza A PCR NEGATIVE (Negative); Influenza B PCR NEGATIVE (Negative); Resp Syncy Virus RNA Qual PCR NEGATIVE (Negative); SARS COV2 PCR INHOUSE NEGATIVE (Negative)
[2021-10-13] MEDS: QUEtiapine Fumarate 25 MG TABLET 75 MG PO (20:33)
[2021-10-13] MEDS: Melatonin 3 MG TABLET 6 MG PO (20:34)
[2021-10-13] MEDS: Tamsulosin HCL 0.4 MG CAPSULE PO (20:34)
[2021-10-13] MEDS: QUEtiapine Fumarate 25 MG TABLET PO (23:40)
[2021-10-14 07:30] VITALS: BP 110/74; PULSE 64; RESP 20; TEMP 37; O2SAT 99
[2021-10-14] MEDS: Atorvastatin Calcium 20 MG TABLET PO (08:44)
[2021-10-14] MEDS: Famotidine 20 MG TABLET PO (08:44)
[2021-10-14] MEDS: Multivitamin TABLET 1 TAB PO (08:44)
[2021-10-14] MEDS: Sertraline HCL 100 MG TABLET PO (08:44)
[2021-10-14] MEDS: Cholecalciferol (Vitamin D3) 25 MCG TABLET 50 MCG PO (08:44)
[2021-10-14] MEDS: Thiamine HCL 100 MG TABLET PO (08:44)
[2021-10-14] MEDS: Metoprolol Succinate ER 50 MG TAB.ER.24H PO (08:44)
[2021-10-14] MEDS: Aspirin Enteric Coated 81 MG TABLET.DR PO (08:44)
[2021-10-14] MEDS: buPROPion HCl XL 150 MG TAB.ER.24H PO (08:44)
[2021-10-14] MEDS: timoloL maleate 0.5 % Oph Sol 5 ML DRBTL 1 DROP EYE-LEFT (08:47)
[2021-10-14 10:52] VITALS: BP 108/79; PULSE 79; RESP 18; TEMP 36.8; O2SAT 94
[2021-10-14 10:58] VITALS: BP 108/79; PULSE 79; O2SAT 94
--- NOTE | 2021-10-14 11:21 | P.PNIM_ITS ---
Subjective Subjective Date of Service: 10/14/21 Interval History: The patient was seen and evaluated this morning Laying in bed, feels okay Had good night overnight did not require any extra medications No reported other overnight events Review of Systems No fever, chills but has generalized weakness No chest pain, palpitation No shortness of breath or coughing No abdominal pain, nausea or vomiting No urinary symptoms No any rash or wounds Physical Exam Vital Signs: Vital Signs: Last Vital Signs Temp 98.3 F 10/14/21 10:52 Pulse 79 10/14/21 10:58 Resp 18 10/14/21 10:52 BP 108/79 10/14/21 10:58 Pulse Ox 94 10/14/21 10:58 BMI result Body Mass Index 25.8 Const: Other: Constitutional : Alert , interactive, not in distress Neck : Normal inspection, Supple Cardiovascular : RRR, S1 S2, no lower extremity edema Respiratory : Good bilateral air entry, no crackles, wheezes or rhonchi Gastrointestinal: soft, lax, Normal bowel sounds, Non tender Skin : Warm, Dry Neurological : Alert & oriented to self and place but not person's, get confused easily and needs redirection, No focal deficit, confabulating stories Objective Data Active Medications Aspirin (Aspirin Enteric Coated 81 Mg Tablet.) 81 mg PO DAILY [facility] Last Admin: 10/14/21 08:44 Dose: 81 mg Documented by: VINCENZO Atorvastatin Calcium (Atorvastatin Calcium 20 Mg Tablet) 20 mg PO DAILY [facility] Last Admin: 10/14/21 08:44 Dose: 20 mg Documented by: VINCENZO Bupropion HCl (Bupropion Hcl Xl 150 Mg Tab.Er.24h) 150 mg PO DAILY [facility] Last Admin: 10/14/21 08:44 Dose: 150 mg Documented by: VINCENZO Enoxaparin Sodium (Enoxaparin Sodium 40 Mg/0.4 Ml Syringe) 40 mg SUBCUT Q24H [facility] Last Admin: 10/14/21 02:35 Dose: Not Given Documented by: SAMARIA Non-Admin Reason: Patient Refused Famotidine (Famotidine 20 Mg Tablet) 20 mg PO BID [facility] Last Admin: 10/14/21 08:44 Dose: 20 mg Documented by: VINCENZO Loratadine (Loratadine 10 Mg Tablet) 10 mg PO DAILY PRN PRN Reason: allergies Medication (No Benzodiazepines) 1 each MISCELLANE DAILY [facility] Melatonin (Melatonin 3 Mg Tablet) 6 mg PO BEDTIME PRN PRN Reason: Insomnia Last Admin: 10/13/21 20:34 Dose: 6 mg Documented by: SAMARIA Metoprolol Succinate (Metoprolol Succinate Er 50 Mg Tab.Er.24h) 50 mg PO DAILY [facility]; Protocol Last Admin: 10/14/21 08:44 Dose: 50 mg Documented by: VINCENZO Multivitamins/Vitamin C (Multivitamin Tablet) 1 tab PO DAILY [facility] Last Admin: 10/14/21 08:44 Dose: 1 tab Documented by: VINCENZO Pharmacy Consult (Consult Rx Perform Med Rec) 1 each MISCELLANE ONCE PRN PRN Reason: Consult order Quetiapine Fumarate (Quetiapine Fumarate 25 Mg Tablet) 75 mg PO BEDTIME [facility] Last Admin: 10/13/21 20:33 Dose: 75 mg Documented by: SAMARIA Quetiapine Fumarate (Quetiapine Fumarate 50 Mg Tablet) 50 mg PO DAILY@1300 [facility] Last Admin: 10/13/21 13:26 Dose: 50 mg Documented by: KIRAN Quetiapine Fumarate (Quetiapine Fumarate 25 Mg Tablet) 25 mg PO Q8H PRN PRN Reason: anxiety/restlessness Last Admin: 10/13/21 23:40 Dose: 25 mg Documented by: SAMARIA Senna (Sennosides 8.6 Mg Tablet) 17.2 mg PO BEDTIME PRN PRN Reason: Constipation Sertraline HCl (Sertraline Hcl 100 Mg Tablet) 100 mg PO DAILY [facility] Last Admin: 10/14/21 08:44 Dose: 100 mg Documented by: VINCENZO Sodium Chloride (0.9 % Sodium Chloride Flush 3 Ml Syringe) 3 ml IVFLUSH QSHIFT [facility] Last Admin: 10/14/21 09:06 Dose: Not Given Documented by: VINCENZO Non-Admin Reason: No Insulin Coverage Tamsulosin HCl (Tamsulosin Hcl 0.4 Mg Capsule) 0.4 mg PO BEDTIME [facility] Last Admin: 10/13/21 20:34 Dose: 0.4 mg Documented by: SAMARIA Thiamine HCl (Thiamine Hcl 100 Mg Tablet) 100 mg PO DAILY [facility] Last Admin: 10/14/21 08:44 Dose: 100 mg Documented by: VINCENZO Timolol Maleate (Timolol Maleate 0.5 % Oph Lina 5 Ml Drbtl) 1 drop EYE-LEFT DAILY [facility] Last Admin: 10/14/21 08:47 Dose: 1 drop Documented by: VINCENZO Vitamin D (Cholecalciferol (Vitamin D3) 25 Mcg Tablet) 50 mcg PO DAILY [facility] Last Admin: 10/14/21 08:44 Dose: 50 mcg Documented by: VINCENZO Labs CBC & Chem 7: 10/09/21 06:27 10/10/21 06:36 Labs: Laboratory Results - last 24 hr 10/13/21 13:15 Influenza Type A (PCR) NEGATIVE Influenza Type B (PCR) NEGATIVE RSV RNA Qual (PCR) NEGATIVE SARS-CoV-2 RNA (RT-PCR) NEGATIVE Assessment and Plan (1) Humeral fracture: Status: Acute (2) Hyponatremia: Status: Acute (3) Acute renal failure superimposed on stage 3 chronic kidney disease: Status: Acute (4) Alcoholic dementia: Status: Acute (5) Delirium due to multiple etiologies, acute, hyperactive: Status: Acute Plan 66M with a past medical history of hypertension, hyperlipidemia, prostate cancer, anxiety, depression, BPH presented to the hospital with a chief complaint of alcohol withdrawal Metabolic encephalopathy 2/2 inpatient delirium\ alcoholic dementia \medications Improved, Fluctuate between the day and night Remains confused with confabulation and very poor short term memory Decrease the Bupropion and hold Atarax Seroquel p.r.n. Use Seroquel daily and at bedtime Recurrent redirection alcohol withdrawal with delerium tremens Done with phenobarbital protocol DC CIWA Advice total abstinence from alcohol Continue thiamine and vitamins hyponatremia resolved recent left humeral fracture keep in sling PT/OT eval prostate ca becalutamide Jhonny on CKD III resolved, back to baseline creatinine 1.5-1.9 monitor BMP ? DVT prophylaxis:? Lovenox Code status: Full code Dispo, physical deconditioning requiring placement. Pending placement Quality Stroke Does the patient have a stroke diagnosis?: No VTE Prior VTE?: No VTE Risk Level:: Medical - moderate - high VTE Device Contraindication: Treatment Not Indicated VTE Drug Contraindication: N/A - Med Ordered
--- NOTE | 2021-10-14 12:50 | MHC.CM.PN ---
Patient has been medically cleared for dc to STR/SNF today. Patient will dc to [facility] today at 4 PM. Patient has Dementia; CM spoke with Daughter/HCP/Cynthia @ [phone], who is aware of and in agreement with the dc plan. IMM addressed with Cynthia and the original will be mailed certified letter to her and a copy has been placed on the chart.
[2021-10-14] MEDS: QUEtiapine Fumarate 50 MG TABLET PO (13:12)
== END 2021-10-14 16:15 | disposition skilled nursing facility (03) | DRG 640 ==
LOC: HO.ED 10-04 01:32 → HO.EDOVER 10-04 02:19 → HO.IMC 10-05 13:22
PROVIDERS: Internal Medicine; Admitting Provider Hospitalist; Emergency Provider Emergency Medicine Emergency Medical Services; PCP Family Medicine; Visit Provider Student in an Organized Health Care Education/Training Program
DX: E87.1 Hypo-osmolality and hyponatremia (principal); G93.41 Metabolic encephalopathy; G92.8 Other toxic encephalopathy; F10.231 Alcohol dependence with withdrawal delirium; N17.9 Acute kidney failure, unspecified; F05 Delirium due to known physiological condition; F10.27 Alcohol dependence with alcohol-induced persisting dementia; Z20.822 Contact with and (suspected) exposure to COVID-19; C61 Malignant neoplasm of prostate; N18.30 Chronic kidney disease, stage 3 unspecified; E78.5 Hyperlipidemia, unspecified; Z88.5 Allergy status to narcotic agent; Z79.82 Long term (current) use of aspirin; Z79.51 Long term (current) use of inhaled steroids; Z79.899 Other long term (current) drug therapy
CPT/HCPCS: 0241U; 36415; 70450; 71045; 72125; 73030; 73060; 80048; 80076; 81001; 82077; 82140; 82947; 83690; 83735; 84100; 84443; 84484; 85025; 85027; 85610; 87635; 92610; 93005; 93971; 96361; 96372; 96374; 96376; 97110; 97116; 97162; 97166; 97530; 97535; 99285; 99291; J1650; J2060; J2560

== ENCOUNTER 2021-10-14 18:22 | Emergency (ER) | payer MEDICARE, MEDICAID, SELFPAY ==
[2021-10-14 18:51] VITALS: BMI 27.4
[2021-10-14 18:56] VITALS: BP 128/77; PULSE 74; RESP 14; TEMP 36.6; O2SAT 96
--- NOTE | 2021-10-14 19:03 | ED.GENADULT ---
HPI - General Adult General Chief complaint: General Medical Stated complaint: not accepted at facility after dc, returning to er Time Seen by Provider: 10/14/21 18:32 Source: EMS Mode of arrival: EMS Limitations: other (Patient with metabolic/Wernicke encephalopathy) History of Present Illness HPI narrative: 66-year-old male who was hospitalized here from 10/04/2021 until 10/14/2021. He was admitted for alcohol withdrawal and treated with Ativan and phenobarbital. The patient was thought to have metabolic/alcoholic encephalopathy. The patient was discharged to a nursing home facility for rehabilitation after his hospitalization. The patient apparently was discharged to [facility] on 27/12 [facility]. Apparently however this was the wrong nursing home facility and the patient was supposed to go to [facility] on [address] [place] [address]. Therefore, the facility rejected the patient and the patient was brought to the emergency department by EMS. At this time, the [facility] cannot accepted admission however they can accept admission at 09:00 hours tomorrow. The patient is awake and alert however he is oriented to person only, he cannot tell me that he has an emergency department and he appears to be confabulating which is consistent with an alcoholic encephalopathy. He does not appear to be in distress and he has no complaints. Related Data Home Medications Medication Instructions Recorded Confirmed atorvastatin 20 mg tablet 20 mg PO DAILY 06/12/21 10/14/21 fluticasone propionate 50 2 spray INTRANASAL DAILY 06/12/21 10/14/21 mcg/actuation nasal spray,suspension metoprolol succinate 50 mg 50 mg PO DAILY 06/12/21 10/14/21 tablet,extended release 24 hr sertraline 50 mg tablet 100 mg PO DAILY 06/12/21 10/14/21 tamsulosin 0.4 mg capsule 0.4 mg PO BEDTIME 06/12/21 10/14/21 timolol maleate 0.5 % eye drops 1 drp OPHTHALMIC-LEFT DAILY 06/12/21 10/14/21 acetaminophen 650 mg 1 tab PO Q8H PRN 10/04/21 10/14/21 tablet,extended release (Arthritis Pain Relief (acetaminophen) ER) aspirin 81 mg tablet,delayed 1 tab PO DAILY 10/04/21 10/14/21 release bupropion HCl 150 mg tablet,12 hr 150 mg PO BID 10/04/21 10/14/21 sustained-release cholecalciferol (vitamin D3) 50 1 cap PO DAILY 10/04/21 10/14/21 mcg (2,000 unit) capsule folic acid 1 mg tablet 1 tab PO DAILY 10/04/21 10/14/21 loratadine 10 mg tablet 1 tab PO DAILY PRN 10/04/21 10/14/21 nicotine (polacrilex) 2 mg buccal 1 marichuy PO Q4H PRN 10/04/21 10/14/21 lozenge thiamine HCl (vitamin B1) 100 mg 1 tab PO DAILY 10/04/21 10/14/21 tablet Previous Rx's Medication Instructions Recorded famotidine 20 mg tablet 20 mg PO BID 30 Days #60 tab 10/13/21 hydroxyzine pamoate 25 mg capsule 25 mg PO BID PRN #0 cap 10/13/21 multivitamin (Daily-Cricket) 1 tab PO DAILY #30 tab 10/13/21 quetiapine 25 mg tablet 75 mg PO BEDTIME 30 Days #90 tab 10/13/21 quetiapine 50 mg tablet 50 mg PO DAILY@1300 30 Days tab 10/13/21 Allergies Allergy/AdvReac Type Severity Reaction Status Date / Time codeine [CODEINE] Allergy Unknown BECOMES Verified 07/29/21 15:08 HYPER, ITCHY, itching Codeine Sulfate Allergy Unknown Unknown Uncoded 07/29/21 15:08 Review of Systems Review of Systems: Yes Unobtainable due to mental status (Alcoholic encephalopathy) [facility] Past Medical History [facility] Narrative: Past medical history: hypertension, hyperlipidemia, prostate cancer, anxiety, depression, BPH, recent fracture of his left upper extremity, alcoholic dementia/encephalopathy, alcohol withdrawal, acute renal failure superimposed on stage 3 chronic kidney disease, hyponatremia. Medical History HTN (hypertension) Hx of dislocation of shoulder Prostate cancer Seasonal allergies Surgical History History of surgery Social History Social History Household Members: None Housing: Apartment Do you presently have visiting nurse or other home services: No Unable to assess alcohol history related to: Unknown Patient Tobacco Use Status: Never used Tobacco Advance Directives: Yes Advance Directives on File: Yes Advance Directives Date on File: 10/05/21 Current occupational status: retired Physical Exam ED Vital Signs: Vital Signs - 24 hr 10/14/21 18:56 10/14/21 20:29 Temperature 97.9 F 97.8 F Pulse Rate 74 69 Respiratory Rate 14 16 Blood Pressure 128/77 118/78 Pulse Oximetry 96 95 BMI result Body Mass Index 27.4 Const Other: Awake, alert, male patient, oriented to person only, patient lacks insight as to why he is here and he does not even know that he has an emergency department, he does not answer questions appropriately and seems to confabulate answers. HENMT Head: Yes normal to inspection, Yes normocephalic and Yes atraumatic Ears: external ears normal General nose exam: Normal external nose present Face and sinus: Yes normal facial exam Mouth: Normal oral and palatal mucosa present Throat: Yes posterior oropharynx normal Eyes General: appearance normal, both eyes and all related structures Pupils: Equal, round and reactive pupils present Neck Neck: Yes normal visual inspection, Yes no lymphadenopathy, Yes trachea midline and Yes supple Chest Chest palpation & inspection: normal inspection of the chest and normal palpation of entire chest wall Resp Effort & Inspection: normal respiratory effort and able to speak in complete sentences Auscultation: clear to auscultation bilaterally Cardio Rate: regular rate Rhythm: regular rhythm Heart sounds: S1 normal heart sound present, S2 normal heart sound present and no murmurs GI Inspection: Yes normal to inspection Palpation (GI): Soft to palpation, nontender and no guarding Auscultation: normal bowel sounds General: Yes no CVA tenderness Back/Spine/Pelvis Back: no CVA tenderness Skin General skin exam: no rashes or lesions noted Neuro Other: Patient is oriented to person only, does not answer questions appropriately seems to confabulate answers that do not make sense Cranial nerves: Yes CN's II-XII intact bilaterally and Yes Equal, round and reactive pupils present Motor exam (neuro): 5/5 motor strength present throughout (Except limited movement of the L upper extremity secondary to recent fractu) Extrem Other: The patient's left upper extremity from the shoulder to the elbow as ecchymotic and slightly swollen, has limited movement of this extremity secondary to recent fracture of the humerus Psych Appearance: grossly normal Course Course Course Narrative: 66-year-old male who was discharged today from the hospital and accidentally brought to the wrong nursing home facility. The patient was not accepted at this facility and the ENTs brought the patient back to the emergency department. The patient's admission was secondary to alcohol withdrawal and the patient was found to have alcoholic dementia. At this time, he does not appear to be acutely ill and I believe that his mental status is consistent with his alcoholic dementia. According to nursing, the patient will be transferred to the appropriate facility tomorrow morning at 09:00 however he cannot be transported today therefore he will need to stay in the emergency department. I will check blood work on this patient to include a CBC, CMP, ammonia level, alcohol level, drug screen, lipase, COVID-19 test. I will order the patient's outpatient medication regimen after his medicines have been reconciled. The patient will be placed in physician observation. 1923: Physician observation started at 1923. Patient placed in physician observation until Case Management can re-evaluate him in the morning to ensure that he has been accepted at a nursing home facility for rehab. At the time of evaluation, the patient is awake, alert, pleasant and cooperative but he does confabulate answers to questions which I think is consistent with his alcoholic dementia. Neuro: nonfocal, CV RRR, Lungs clear. 2157: Physician observation continued: Laboratory evaluation was consistent with his baseline anemia and chronic kidney disease. COVID-19 test was negative. Ammonia level was below detectable limits. The patient's medications were reconciled and I did order as outpatient medications. I also ordered a case management consult. The patient is currently resting comfortably and is cooperative, his exam is unchanged. At the end of my shift, the patient's care was turned over to my colleague, Dr. Zahida Myrick. Medical Decision Making Lab Data Result diagrams: 10/14/21 19:31 10/14/21 19:31 Labs: Lab Results 10/14/21 10/14/21 10/14/21 Range/Units 19:31 19:31 19:31 WBC 11.4 H (4.8-10.8) X10*3/uL RBC 3.18 L (4.60-5.80) X10*6/uL Hgb 9.1 L (14.0-18.0) g/dl Hct 29.7 L (42.0-52.0) % MCV 93.4 (80.0-98.0) fL MCH 28.6 (27.0-33.0) pg MCHC 30.6 L (31.0-36.0) g/dl RDW 13.9 (11.0-16.0) % Plt Count 389 D (160-400) X10*3/uL MPV 9.1 L (9.4-12.4) fL Immature Gran % (Auto) 0.4 (0.0-0.4) % Neut % (Auto) 68.3 (45-73) % Lymph % (Auto) 18.1 L (20-40) % Stafford % (Auto) 10.5 (2-11) % Eos % (Auto) 2.3 (0-4) % Baso % (Auto) 0.4 (0-2) % Lymph # (Auto) 2.1 (1.2-4.9) X10*3/uL Stafford # (Auto) 1.2 (0.1-1.2) X10*3/uL Eos # (Auto) 0.3 (0.0-0.4) X10*3/uL Baso # (Auto) 0.1 (0.0-0.2) X10*3/uL Abs Immat Gran (auto) 0.05 H (0.00-0.03) X10*3/uL Absolute Neuts (auto) 7.8 (2.0-8.3) x10*3/uL Absolute Nucleated RBC 0.000 (0.0-0.012) X10*3/uL Nucleated RBC % (auto) 0.0 (0.0-0.2) /100WBC Sodium 137 (135-145) mmol/L Potassium 4.4 (3.3-5.1) mmol/L Chloride 104 (96-108) mmol/L Carbon Dioxide 24 (22-29) mmol/L Anion Gap 13 (12-20) BUN 34 H (9-16) mg/dL Creatinine 1.79 H (0.5-1.4) mg/dL Estim Creat Clear Calc 39.6 Estimated GFR 38 Random Glucose 100 (60-115) mg/dL Calcium 9.4 (8.4-10.2) mg/dL Total Bilirubin 0.5 (0.0-1.0) mg/dL AST 27 (5-37) U/L ALT 21 (0-40) U/L Alkaline Phosphatase 113 D (39-117) U/L Ammonia 24 (13-55) umol/L Total Protein 8.3 H (6.5-8.0) g/dL Albumin 3.5 (3.5-5.0) g/dL Lipase 102 H (8-78) U/L Urine Opiates Screen (Not Detect) Urine Fentanyl Screen (Not Detect) Ur Barbiturates Screen (Not Detect) Ur Phencyclidine Scrn (Not Detect) Ur Amphetamines Screen (Not Detect) U Benzodiazepines Scrn (Not Detect) Urine Cocaine Screen (Not Detect) U Marijuana (THC) Screen (Not Detect) Ethyl Alcohol mg/dL COVID-19 (TIGRE) (Negative) COVID-19 Clin Com 10/14/21 10/14/21 10/14/21 Range/Units 19:31 19:31 20:33 WBC (4.8-10.8) X10*3/uL RBC (4.60-5.80) X10*6/uL Hgb (14.0-18.0) g/dl Hct (42.0-52.0) % MCV (80.0-98.0) fL MCH (27.0-33.0) pg MCHC (31.0-36.0) g/dl RDW (11.0-16.0) % Plt Count (160-400) X10*3/uL MPV (9.4-12.4) fL Immature Gran % (Auto) (0.0-0.4) % Neut % (Auto) (45-73) % Lymph % (Auto) (20-40) % Stafford % (Auto) (2-11) % Eos % (Auto) (0-4) % Baso % (Auto) (0-2) % Lymph # (Auto) (1.2-4.9) X10*3/uL Stafford # (Auto) (0.1-1.2) X10*3/uL Eos # (Auto) (0.0-0.4) X10*3/uL Baso # (Auto) (0.0-0.2) X10*3/uL Abs Immat Gran (auto) (0.00-0.03) X10*3/uL Absolute Neuts (auto) (2.0-8.3) x10*3/uL Absolute Nucleated RBC (0.0-0.012) X10*3/uL Nucleated RBC % (auto) (0.0-0.2) /100WBC Sodium (135-145) mmol/L Potassium (3.3-5.1) mmol/L Chloride (96-108) mmol/L Carbon Dioxide (22-29) mmol/L Anion Gap (12-20) BUN (9-16) mg/dL Creatinine (0.5-1.4) mg/dL Estim Creat Clear Calc Estimated GFR Random Glucose (60-115) mg/dL Calcium (8.4-10.2) mg/dL Total Bilirubin (0.0-1.0) mg/dL AST (5-37) U/L ALT (0-40) U/L Alkaline Phosphatase (39-117) U/L Ammonia (13-55) umol/L Total Protein (6.5-8.0) g/dL Albumin (3.5-5.0) g/dL Lipase (8-78) U/L Urine Opiates Screen Not Detected (Not Detect) Urine Fentanyl Screen Not Detected (Not Detect) Ur Barbiturates Screen POSITIVE H (Not Detect) Ur Phencyclidine Scrn Not Detected (Not Detect) Ur Amphetamines Screen Not Detected (Not Detect) U Benzodiazepines Scrn Not Detected (Not Detect) Urine Cocaine Screen Not Detected (Not Detect) U Marijuana (THC) Screen Not Detected (Not Detect) Ethyl Alcohol < 10 mg/dL COVID-19 (TIGRE) Negative (Negative) COVID-19 Clin Com See Note Discharge Plan Discharge Clinical Impression: Alcoholic dementia Patient Disposition: Still a Patient Prescriptions: No Action bupropion HCl 150 mg tablet sustained-release 12 hr 150 mg PO BID 0RF thiamine HCl (vitamin B1) 100 mg tablet 1 tab PO DAILY 0RF aspirin 81 mg tablet,delayed release (DR/EC) 1 tab PO DAILY 0RF acetaminophen [Arthritis Pain Relief (acetam)] 650 mg tablet extended release 1 tab PO Q8H PRN (Reason: Pain) 0RF folic acid 1 mg tablet 1 tab PO DAILY 0RF loratadine 10 mg tablet 1 tab PO DAILY PRN (Reason: allergies) 0RF nicotine (polacrilex) 2 mg lozenge 1 marichuy PO Q4H PRN (Reason: Smoking Cessation) 0RF cholecalciferol (vitamin D3) 50 mcg (2,000 unit) capsule 1 cap PO DAILY 0RF multivitamin [Daily-Cricket] Tablet 1 tab PO DAILY Qty: 30 0RF quetiapine 25 mg Tablet 75 mg PO BEDTIME 30 Days Qty: 90 0RF famotidine 20 mg Tablet 20 mg PO BID 30 Days Qty: 60 0RF quetiapine 50 mg Tablet 50 mg PO DAILY@1300 30 Days 0RF hydroxyzine pamoate 25 mg capsule 25 mg PO BID PRN (Reason: Anxiety) Qty: 0 0RF sertraline 50 mg tablet 100 mg PO DAILY 0RF fluticasone propionate 50 mcg/actuation spray,suspension 2 spray intranasal DAILY 0RF tamsulosin 0.4 mg capsule 0.4 mg PO BEDTIME 0RF metoprolol succinate 50 mg tablet extended release 24 hr 50 mg PO DAILY 0RF atorvastatin 20 mg tablet 20 mg PO DAILY 0RF timolol maleate 0.5 % drops 1 drp ophthalmic-Left DAILY 0RF
--- NOTE | 2021-10-14 19:16 | PHA.MEDREC ---
Pharmacy Consult ? Medication Reconciliation Pharmacy has completed the medication reconciliation. Patient DC'd today and is now back, therefore no changes on discharge summary. The hospital stay is the most accurate medication he has been taking for the past week and half. Fadumo Woods, PharmD
[2021-10-14 19:39] LABS: MANUAL DIFF FLAG NO
[2021-10-14 19:42] LABS: Basophils Absolute Auto 0.1 X10*3/uL (0.0-0.2); Basophils Percent Auto 0.4 % (0-2); Eosinophils Absolute Auto 0.3 X10*3/uL (0.0-0.4); Eosinophils Percent Auto 2.3 % (0-4); Hematocrit 29.7 % (42.0-52.0); Hemoglobin 9.1 g/dl (14.0-18.0); Imm Gran Abs Auto 0.05 X10*3/uL (0.00-0.03); Imm Gran Pct Auto 0.4 % (0.0-0.4); Lymphocytes Absolute Auto 2.1 X10*3/uL (1.2-4.9); Lymphocytes Percent Auto 18.1 % (20-40); Mean Corpuscular HGB Conc 30.6 g/dl (31.0-36.0); Mean Corpuscular Hemoglobin 28.6 pg (27.0-33.0); Mean Corpuscular Volume 93.4 fL (80.0-98.0); Mean Platelet Volume 9.1 fL (9.4-12.4); Monocytes Absolute Auto 1.2 X10*3/uL (0.1-1.2); Monocytes Percent Auto 10.5 % (2-11); Neutrophils Absolute Auto 7.8 x10*3/uL (2.0-8.3); Neutrophils Percent Auto 68.3 % (45-73); Platelet Count 389 X10*3/uL (160-400); Red Blood Count 3.18 X10*6/uL (4.60-5.80); Red Cell Distribution Width 13.9 % (11.0-16.0); White Blood Count 11.4 X10*3/uL (4.8-10.8)
[2021-10-14 19:53] LABS: Ammonia 24 umol/L (13-55)
[2021-10-14 19:56] LABS: Ethanol < 10 mg/dL
[2021-10-14 19:58] LABS: COVID-19 Test Negative (Negative); IDNOW Serial# 9DD0AD1C
[2021-10-14 20:01] LABS: Alanine Aminotransferase 21 U/L (0-40); Albumin Level 3.5 g/dL (3.5-5.0); Alkaline Phosphatase 113 U/L (39-117); Anion Gap 13 (12-20); Aspartate Amino Transferase 27 U/L (5-37); Bilirubin Total 0.5 mg/dL (0.0-1.0); Blood Urea Nitrogen 34 mg/dL (9-16); Calcium 9.4 mg/dL (8.4-10.2); Carbon Dioxide 24 mmol/L (22-29); Chloride 104 mmol/L (96-108); Creatinine Clr Calc Pharmacy 39.6; Estimated Glomerular Filt Rate 38; Glucose Random 100 mg/dL (60-115); Lipase 102 U/L (8-78); Potassium 4.4 mmol/L (3.3-5.1); Sodium 137 mmol/L (135-145); Total Protein 8.3 g/dL (6.5-8.0)
[2021-10-14 20:29] VITALS: BP 118/78; PULSE 69; RESP 16; TEMP 36.6; O2SAT 95
[2021-10-14 21:01] LABS: Amphetamine Screen Urine Not Detected (Not Detect); Barbiturates, Urine POSITIVE (Not Detect); Benzodiazepines Screen Urine Not Detected (Not Detect); Cannabinoid Screen Urine Not Detected (Not Detect); Cocaine Screen Urine Not Detected (Not Detect); Fentanyl, urine Not Detected (Not Detect); Opiate Screen Urine Not Detected (Not Detect); Phencyclidine Screen Urine Not Detected (Not Detect)
[2021-10-14] MEDS: QUEtiapine Fumarate 25 MG TABLET 75 MG PO (21:46)
[2021-10-14] MEDS: Famotidine 20 MG TABLET PO (21:46)
[2021-10-14] MEDS: Tamsulosin HCL 0.4 MG CAPSULE PO (21:46)
[2021-10-14 23:54] VITALS: BP 124/67; PULSE 70; RESP 16; O2SAT 97
[2021-10-15] MEDS: hydrOXYzine HCL 25 MG TABLET PO (01:33)
--- NOTE | 2021-10-15 03:03 | PC.NURSE ---
pt urinated in stretcher. pt cleaned up at this time. pt speaking constantly to no one. pt alert, respirations easy, n/l. skin w/d. will continue to monitor pt.
--- NOTE | 2021-10-15 04:26 | PC.NURSE ---
pt remains restless in stretcher and unable to fall asleep. pt speaking out loud to no-one. pt is reaching for objects that are not there. VS obtained. pt remains calm. pt unable to follow simple commands. will continue to monitor pt.
--- NOTE | 2021-10-15 05:08 | PC.NURSE ---
pt urinated in stretcher. pt cleaned up at this time. will continue to monitor pt.
[2021-10-15 06:00] VITALS: BP 116/67; PULSE 65; RESP 16; O2SAT 98
--- NOTE | 2021-10-15 08:48 | MHC.CM.ED ---
Received case management consult overnight. [place] [facility] [place] Patient was supposed to go to [facility]. Patient was actually transported to [facility]. [place] didn't have a bed so patient was brought to the ER. The [facility] Emergency liaison contacted patient's daughter. Because of the confusion, they were going to offer a bed at [facility] for convenience of the family, until a bed at [place] was available. This morning a bed at [facility] became available. Patient will be going to [facility] at 9am this morning via BLS. [facility] booked. [facility] with chart. Patient, daughter, Domenic RN and Dr Potts aware. Continue to monitor for d/c needs.
[2021-10-15 09:07] VITALS: PULSE 61; RESP 18; O2SAT 96
[2021-10-15] MEDS: buPROPion HCl XL 300 MG TAB.ER.24H PO (09:11)
[2021-10-15] MEDS: Cholecalciferol (Vitamin D3) 25 MCG TABLET 50 MCG PO (09:12)
[2021-10-15] MEDS: Thiamine HCL 100 MG TABLET PO (09:12)
[2021-10-15] MEDS: Famotidine 20 MG TABLET PO (09:12)
[2021-10-15] MEDS: Aspirin Enteric Coated 81 MG TABLET.DR PO (09:12)
[2021-10-15] MEDS: Folic Acid 1 MG TABLET PO (09:12)
[2021-10-15] MEDS: Sertraline HCL 100 MG TABLET PO (09:12)
[2021-10-15] MEDS: Atorvastatin Calcium 20 MG TABLET PO (09:12)
[2021-10-15] MEDS: Metoprolol Succinate ER 50 MG TAB.ER.24H PO (09:12)
[2021-10-15] MEDS: Multivitamin TABLET 1 TAB PO (09:12)
[2021-10-15] MEDS: Fluticasone Propionate Nasal 16 GM SPRAY 2 SPRAY NOSTRIL-B (09:13)
[2021-10-15] MEDS: timoloL maleate 0.5 % Oph Sol 5 ML DRBTL 1 DROP EYE-LEFT (09:13)
--- NOTE | 2021-10-15 09:31 | PC.NURSE ---
medicated as ordered, was sleeping and easily woken, nad, report to ems, sling placed on l arm, call placed to aftab astudillo,
== END 2021-10-15 10:00 | disposition skilled nursing facility (03) ==
PROVIDERS: Emergency Medicine Emergency Medical Services; Emergency Provider Emergency Medicine
DX: F10.27 Alcohol dependence with alcohol-induced persisting dementia (principal); Y90.0 Blood alcohol level of less than 20 mg/100 ml; Z20.822 Contact with and (suspected) exposure to COVID-19; I10 Essential (primary) hypertension; Z85.46 Personal history of malignant neoplasm of prostate; Z79.82 Long term (current) use of aspirin; Z79.899 Other long term (current) drug therapy
CPT/HCPCS: 36415; 80053; 80307; 82077; 82140; 83690; 85025; 87635; 99284; 99285

== ENCOUNTER 2021-11-04 05:57 | Emergency (ER) | payer MEDICARE, MEDICAID, SELFPAY ==
[2021-11-04 06:01] VITALS: BP 90/59; PULSE 78; RESP 18; TEMP 37.1; O2SAT 99; BMI 23.3
[2021-11-04 06:43] VITALS: BP 114/72
--- NOTE | 2021-11-04 06:47 | ED_ITS ---
HPI - Psych General Chief Complaint: Psychiatric Symptoms Stated Complaint: Psych Time Seen by Provider: 11/04/21 06:31 Source: patient Mode of arrival: ambulatory Limitations: no limitations History of Present Illness HPI Narrative: 66-year-old male presents to the emergency department initially hypotensive after being belligerent at the residential. Patient arrives here calm cooperative. Patient has been in the residential for several weeks. Patient was admitted here for alcohol withdrawal approximately 2 weeks ago. Patient has no complaints other than some left shoulder pain which appears chronic. He denies fevers chills cough nausea vomiting or diarrhea. His repeat blood pressure was normotensive. Related Data Home Medications Medication Instructions Recorded Confirmed timolol maleate 0.5 % eye drops 1 drp OPHTHALMIC-LEFT DAILY 06/12/21 11/04/21 aspirin 81 mg tablet,delayed 1 tab PO QAM 11/04/21 11/04/21 release atorvastatin 20 mg tablet 1 tab PO QAM 11/04/21 11/04/21 bupropion HCl 150 mg tablet,12 hr 150 mg PO BID 11/04/21 11/04/21 sustained-release cholecalciferol (vitamin D3) 50 1 cap PO QAM 11/04/21 11/04/21 mcg (2,000 unit) capsule fluticasone propionate 50 2 spray INTRANASAL DAILY 11/04/21 11/04/21 mcg/actuation nasal spray,suspension folic acid 1 mg tablet 1 tab PO QAM 11/04/21 11/04/21 loratadine 10 mg tablet 1 tab PO DAILY PRN 11/04/21 11/04/21 metoprolol succinate 50 mg 1 tab PO QAM 11/04/21 11/04/21 tablet,extended release 24 hr naproxen 500 mg tablet 1 tab PO BID PRN 11/04/21 11/04/21 sertraline 50 mg tablet 2 tab PO QAM 11/04/21 11/04/21 tamsulosin 0.4 mg capsule 1 cap PO QPM 11/04/21 11/04/21 thiamine HCl (vitamin B1) 100 mg 1 tab PO QAM 11/04/21 11/04/21 tablet Allergies Allergy/AdvReac Type Severity Reaction Status Date / Time codeine [CODEINE] Allergy Unknown BECOMES Verified 07/29/21 15:08 HYPER, ITCHY, itching banana Allergy Unknown Verified 11/04/21 07:25 Codeine Sulfate Allergy Unknown Unknown Uncoded 07/29/21 15:08 Review of Systems Review of Systems: Review of systems: General: Patient denies any fever chills recent illness or falls Musculoskeletal: Denies back pain or body aches or other injuries HEENT: denies headache, runny nose, ear pain Respiratory: denies shortness of breath, cough Cardiovascular: no chest pain or palpitations : denies dysuria, frequency Abdomen: no nausea vomiting denies abdominal pain Extremities: no swelling, no pain Skin: no diaphoresis Yes all other systems are reviewed and are negative PMFSH Past Medical History Medical History HTN (hypertension) Hx of dislocation of shoulder Prostate cancer Seasonal allergies Surgical History History of surgery Social History Social History Household Members: None Housing: Apartment Do you presently have visiting nurse or other home services: No Unable to assess alcohol history related to: Unknown Patient Tobacco Use Status: Never used Tobacco Advance Directives: Yes Advance Directives on File: Yes Advance Directives Date on File: 10/05/21 Current occupational status: retired Physical Exam Vital Signs: Vital Signs: Last Vital Signs Temp 98.8 F 11/04/21 06:01 Pulse 78 11/04/21 06:01 Resp 18 11/04/21 06:01 BP 114/72 11/04/21 06:43 Pulse Ox 99 11/04/21 06:01 BMI result Body Mass Index 23.3 General: Well-appearing well-nourished in no signs of distress HEENT: Normocephalic atraumatic Neck: No signs of JVD, no masses no tenderness or lymphadenopathy Cardiovascular: Regular rate and rhythm Respiratory: Clear to auscultation bilaterally Abdomen: Soft nontender no masses rectal exam performed guiac negative ict quality assurance engineer confirmed. Extremities: Normal pedal pulses no signs of edema Skin: Dry warm no rashes Back: No tenderness full ROM MDM - Psych MDM Narrative Medical decision making narrative: Patient with her and the residential is close to baseline now. He has no complaints is not acutely altered in any way I did order fluids and labs since the patient was hypertensive on arrival. The patient cleared to be seen by crisis. 1034 initial blood pressure at the pressure of 90 but was in error review blood pressures have been normal patient is not tachycardic patient has no new complaints that they were unable to get any blood work as they stuck patient 5 times not think these patients any further workup patient has been cleared by crisis to go home. Differential Diagnosis Differential diagnosis: Likely acute psychosis, bipolar disorder, drug-induced psychotic disorder, substance abuse, alcohol intoxication, overdose and mood disorder Medical Records Attestation: I reviewed the patient's medical records. Lab Data Labs: Lab Results 11/04/21 11/04/21 11/04/21 Range/Units 06:43 06:43 06:44 Urine Color YELLOW Urine Appearance CLEAR Urine pH 5.5 (5.0-8.0) Ur Specific [place] 1.025 (1.005-1.025) Urine Protein NEG (NEG-TRACE) MG/DL Urine Glucose (UA) NEG (NEG) MG/DL Urine Ketones NEG (NEG) MG/DL Urine Blood NEG (NEG) Urine Nitrite NEG (NEG) Ur Leukocyte Esterase NEG (NEG) Urine Opiates Screen Not Detected (Not Detect) Urine Fentanyl Screen Not Detected (Not Detect) Ur Barbiturates Screen POSITIVE H (Not Detect) Ur Phencyclidine Scrn Not Detected (Not Detect) Ur Amphetamines Screen Not Detected (Not Detect) U Benzodiazepines Scrn Not Detected (Not Detect) Urine Cocaine Screen Not Detected (Not Detect) U Marijuana (THC) Screen Not Detected (Not Detect) COVID-19 (TIGRE) Negative (Negative) COVID-19 Clin Com See Note Discharge Plan Discharge Clinical Impression: Acute anxiety Patient Disposition: Xfer [facility] Instructions: Anxiety (ED) Additional Instructions: Please call to follow up with your doctor. Prescriptions: No Action bupropion HCl 150 mg tablet sustained-release 12 hr 150 mg PO BID 0RF atorvastatin 20 mg tablet 1 tab PO QAM 0RF thiamine HCl (vitamin B1) 100 mg tablet 1 tab PO QAM 0RF aspirin 81 mg tablet,delayed release (DR/EC) 1 tab PO QAM 0RF tamsulosin 0.4 mg capsule 1 cap PO QPM 0RF folic acid 1 mg tablet 1 tab PO QAM 0RF fluticasone propionate 50 mcg/actuation spray,suspension 2 spray intranasal DAILY 0RF sertraline 50 mg tablet 2 tab PO QAM 0RF loratadine 10 mg tablet 1 tab PO DAILY PRN (Reason: allergies) 0RF naproxen 500 mg tablet 1 tab PO BID PRN (Reason: pain) 0RF cholecalciferol (vitamin D3) 50 mcg (2,000 unit) capsule 1 cap PO QAM 0RF metoprolol succinate 50 mg tablet extended release 24 hr 1 tab PO QAM 0RF timolol maleate 0.5 % drops 1 drp ophthalmic-Left DAILY 0RF
[2021-11-04 06:52] LABS: Appearance Urine CLEAR; Color Urine YELLOW; Glucose Urine UA NEG (NEG); Leukocyte Esterase Urine NEG (NEG); Nitrite Urine NEG (NEG); PH 5.5 (5.0-8.0); Specific Gravity - Urine 1.025 (1.005-1.025); Urine Blood NEG (NEG); Urine Ketones NEG (NEG); Urine Protein NEG (NEG-TRACE)
[2021-11-04 07:05] LABS: Amphetamine Screen Urine Not Detected (Not Detect); Barbiturates, Urine POSITIVE (Not Detect); Benzodiazepines Screen Urine Not Detected (Not Detect); Cannabinoid Screen Urine Not Detected (Not Detect); Cocaine Screen Urine Not Detected (Not Detect); Fentanyl, urine Not Detected (Not Detect); Opiate Screen Urine Not Detected (Not Detect); Phencyclidine Screen Urine Not Detected (Not Detect)
--- NOTE | 2021-11-04 07:11 | PC.NURSE ---
patient awake at present, respirations are even and unlabored, patient approaches nurses station and rambles, clear speech but tangential nonsensical content to stories.
[2021-11-04 07:15] LABS: COVID-19 Test Negative (Negative); IDNOW Serial# 16C4AD1C
--- NOTE | 2021-11-04 10:31 | PC.NURSE ---
patient has had four techs attempt to draw blood, phlebotomy insists on [id number] a finger stick if we need, reviewing with PA the sample's requirement.
--- NOTE | 2021-11-04 10:53 | MHC.CM.ED ---
Per Leti of Care Team, patient is from [facility]. Was sent to ER due to AMS. Patient cleared by Care team. Referral sent via [employer]. Patient can return. [facility] booked for noon. Patient, Ilda ZAIDI and Dr Morales aware.
== END 2021-11-04 12:16 | disposition skilled nursing facility (03) ==
PROVIDERS: Emergency Provider Student in an Organized Health Care Education/Training Program; PCP Family Medicine
DX: F41.9 Anxiety disorder, unspecified (principal); I10 Essential (primary) hypertension; Z79.82 Long term (current) use of aspirin; Z79.02 Long term (current) use of antithrombotics/antiplatelets; Z79.899 Other long term (current) drug therapy; Z20.822 Contact with and (suspected) exposure to COVID-19
CPT/HCPCS: 80307; 81003; 87635; 96360; 99283; 99284

== ENCOUNTER 2021-11-04 23:58 | Emergency (ER) | payer MEDICARE, MEDICAID, SELFPAY ==
--- NOTE | ~2021-11-04 | CT_ITS ---
EXAMINATION: CT HEAD WITHOUT CONTRAST CLINICAL INFORMATION: Altered mental status COMPARISON: 10/05/2021 TECHNIQUE: Contiguous axial imaging was performed from the skull base to vertex without intravenous administration of contrast. This CT examination was performed using dose optimization techniques as appropriate, variously including the following: *Automated exposure control *Adjustment of mA and/or kV according to patient size (this includes techniques or standardized protocols for targeted exams where dose is matched to indication/reason for exam; i.e. extremities or head) *Use of iterative reconstruction technique DLP: 1080 mGy-cm FINDINGS: There is no evidence of acute intracranial hemorrhage or territorial infarction. No abnormal mass effect or midline shift is seen. Jim to white matter differentiation is well preserved. No extra-axial fluid collections are identified. The ventricles are normal in size. Mild volume loss is noted. The osseous structures and soft tissues are normal. The mastoid air cells are well-aerated. Mucous retention cysts noted in the right maxillary sinus and left frontal sinus. CT/CT head/brain wo con IMPRESSION: No acute intracranial pathology.
--- NOTE | ~2021-11-04 | XR_ITS ---
EXAMINATION: XR CHEST CLINICAL INFORMATION: Altered mental status with cough COMPARISON: 10/04/2021 TECHNIQUE: Frontal view of the chest was obtained. FINDINGS: No significant abnormality is noted involving the heart, lungs or mediastinum. Again noted are severe destructive degenerative changes involving both shoulders, unchanged. XR/XR chest 1V IMPRESSION: No acute intrathoracic disease
--- NOTE | ~2021-11-04 | CT_ITS ---
EXAMINATION: CT SHOULDER WITHOUT CONTRAST, LEFT CLINICAL INFORMATION: History of left shoulder fracture, pain, history of dislocation COMPARISON: Multiple priors, most recent 10/04/2021 TECHNIQUE: No intravenous contrast was utilized. Multidetector helical imaging was performed through the left shoulder. Coronal and sagittal reformatted images were created. DOSE LOWERING TECHNIQUES: This CT examination was performed using dose optimization techniques as appropriate, variously including the following: - Automated exposure control - Adjustment of mA and/or kV according to patient size (this includes techniques or standardized protocols for targeted exams were dose is matched to indication/reason for exam; i.e. extremities or head) - Use of iterative reconstruction technique DLP: 1080 mGy-cm FINDINGS: There is an impacted fracture of the left humeral neck which has a subacute appearance and is similar in alignment to radiographs from 10/04/2021. There is some surrounding calcification, suggesting partial interval healing, though the fracture line remains visible without bony bridging. Redemonstrated severe degenerative change at the glenohumeral articulation with extensive subchondral cyst formation and spurring. Numerous loose bodies are present. Humeral head fragment remains aligned with the glenoid. The acromioclavicular joint is intact with moderate degenerative change. There is mild chronic appearing deformity of the scapular spine, which suggests healed old fracture. Degenerative changes are noted in the visualized portions of the cervical and thoracic spine. Mild scarring noted at the left lung apex. CT/CT shoulder LT wo con IMPRESSION: 1. Impacted fracture of the left humeral neck has a subacute appearance, similar in alignment to 10/04/2021. 2. Severe degenerative change of the glenohumeral joint. 3. Chronic appearing deformity of the scapular spine, suggesting healed old injury.
--- NOTE | 2021-11-05 00:02 | ED.PSYCH ---
HPI - Psych General Chief Complaint: Altered Mental Status Stated Complaint: psych eval Related Data Home Medications Medication Instructions Recorded Confirmed timolol maleate 0.5 % eye drops 1 drp OPHTHALMIC-LEFT DAILY 06/12/21 11/04/21 aspirin 81 mg tablet,delayed 1 tab PO QAM 11/04/21 11/04/21 release atorvastatin 20 mg tablet 1 tab PO QAM 11/04/21 11/04/21 bupropion HCl 150 mg tablet,12 hr 150 mg PO BID 11/04/21 11/04/21 sustained-release cholecalciferol (vitamin D3) 50 1 cap PO QAM 11/04/21 11/04/21 mcg (2,000 unit) capsule fluticasone propionate 50 2 spray INTRANASAL DAILY 11/04/21 11/04/21 mcg/actuation nasal spray,suspension folic acid 1 mg tablet 1 tab PO QAM 11/04/21 11/04/21 loratadine 10 mg tablet 1 tab PO DAILY PRN 11/04/21 11/04/21 metoprolol succinate 50 mg 1 tab PO QAM 11/04/21 11/04/21 tablet,extended release 24 hr naproxen 500 mg tablet 1 tab PO BID PRN 11/04/21 11/04/21 sertraline 50 mg tablet 2 tab PO QAM 11/04/21 11/04/21 tamsulosin 0.4 mg capsule 1 cap PO QPM 11/04/21 11/04/21 thiamine HCl (vitamin B1) 100 mg 1 tab PO QAM 11/04/21 11/04/21 tablet Allergies Allergy/AdvReac Type Severity Reaction Status Date / Time codeine [CODEINE] Allergy Unknown BECOMES Verified 07/29/21 15:08 HYPER, ITCHY, itching banana Allergy Unknown Verified 11/04/21 07:25 Codeine Sulfate Allergy Unknown Unknown Uncoded 07/29/21 15:08 [facility] Past Medical History Medical History HTN (hypertension) Hx of dislocation of shoulder Prostate cancer Seasonal allergies Surgical History History of surgery Social History Social History Household Members: None Housing: Apartment Do you presently have visiting nurse or other home services: No Unable to assess alcohol history related to: Unknown Patient Tobacco Use Status: Never used Tobacco Advance Directives: Yes Advance Directives on File: Yes Advance Directives Date on File: 10/05/21 Current occupational status: retired Physical Exam Vital Signs: Vital Signs: Last Vital Signs Temp 98.0 F 11/05/21 00:07 Pulse 72 11/05/21 00:07 Resp 16 11/05/21 00:07 BP 120/86 11/05/21 00:07 Pulse Ox 95 11/05/21 00:07 BMI result Body Mass Index 25.0 Discharge Plan Discharge Prescriptions: No Action bupropion HCl 150 mg tablet sustained-release 12 hr 150 mg PO BID 0RF atorvastatin 20 mg tablet 1 tab PO QAM 0RF thiamine HCl (vitamin B1) 100 mg tablet 1 tab PO QAM 0RF aspirin 81 mg tablet,delayed release (DR/EC) 1 tab PO QAM 0RF tamsulosin 0.4 mg capsule 1 cap PO QPM 0RF folic acid 1 mg tablet 1 tab PO QAM 0RF fluticasone propionate 50 mcg/actuation spray,suspension 2 spray intranasal DAILY 0RF sertraline 50 mg tablet 2 tab PO QAM 0RF loratadine 10 mg tablet 1 tab PO DAILY PRN (Reason: allergies) 0RF naproxen 500 mg tablet 1 tab PO BID PRN (Reason: pain) 0RF cholecalciferol (vitamin D3) 50 mcg (2,000 unit) capsule 1 cap PO QAM 0RF metoprolol succinate 50 mg tablet extended release 24 hr 1 tab PO QAM 0RF timolol maleate 0.5 % drops 1 drp ophthalmic-Left DAILY 0RF
[2021-11-05 00:07] VITALS: BP 120/86; PULSE 72; RESP 16; TEMP 36.7; O2SAT 95; BMI 25.0
--- NOTE | 2021-11-05 00:16 | ECG_ITS ---
Test Reason : MED CLEAR Blood Pressure : / mmHG Vent. Rate : 082 BPM Atrial Rate : 000 BPM P-R Int : 000 ms QRS Dur : 074 ms QT Int : 376 ms P-R-T Axes : 000 051 052 degrees QTc Int : 439 ms Poor data quality Normal sinus rhythm Normal ECG When compared with ECG of 04-OCT-2021 02:25, No significant changes seen Referred By: Althea Santo Electronically Signed By:BIGG RODRIGUEZ MD
--- NOTE | 2021-11-05 00:16 | ED_ITS ---
HPI - Altered Mental Status General Chief Complaint: Altered Mental Status <Althea Santo NP - Last Filed: 11/05/21 02:03> Stated Complaint: psych eval <Althea Santo NP - Last Filed: 11/05/21 02:03> Time Seen by Provider: 11/05/21 03:53 <Althea Santo NP - Last Filed: 11/05/21 02:03> Source: patient and EMS <Althea Santo NP - Last Filed: 11/05/21 02:03> Mode of arrival: EMS <Althea Santo NP - Last Filed: 11/05/21 02:03> Limitations: altered mental status (Dementia per baseline) <Althea Santo NP - Last Filed: 11/05/21 02:03> History of Present Illness HPI narrative: 66-year-old male presents via EMS in a half-way facility for altere d mental status and dementia. <Althea Santo NP - Last Filed: 11/05/21 02:03> MD complaint: altered mental status and confusion <Althea Santo NP - Last Filed: 11/05/21 02:03> Onset (ago): unknown <Althea Santo NP - Last Filed: 11/05/21 02:03> Timing confirmed by: caregiver <Althea Santo NP - Last Filed: 11/05/21 02:03> Severity: moderate <Althea Santo NP - Last Filed: 11/05/21 02:03> Context: history of similar presentation <Althea Santo NP - Last Filed: 11/05/21 02:03> Related Data Home Medications: Home Medications Medication Instructions Recorded Confirmed timolol maleate 0.5 % eye drops 1 drp OPHTHALMIC-LEFT DAILY 06/12/21 11/05/21 aspirin 81 mg tablet,delayed 1 tab PO QAM 11/04/21 11/05/21 release atorvastatin 20 mg tablet 1 tab PO QAM 11/04/21 11/05/21 bupropion HCl 150 mg tablet,12 hr 150 mg PO BID 11/04/21 11/05/21 sustained-release cholecalciferol (vitamin D3) 50 1 cap PO QAM 11/04/21 11/05/21 mcg (2,000 unit) capsule fluticasone propionate 50 2 spray INTRANASAL DAILY 11/04/21 11/05/21 mcg/actuation nasal spray,suspension folic acid 1 mg tablet 1 tab PO QAM 11/04/21 11/05/21 loratadine 10 mg tablet 1 tab PO DAILY PRN 11/04/21 11/05/21 metoprolol succinate 50 mg 1 tab PO QAM 11/04/21 11/05/21 tablet,extended release 24 hr naproxen 500 mg tablet 1 tab PO BID PRN 11/04/21 11/05/21 sertraline 50 mg tablet 2 tab PO QAM 11/04/21 11/05/21 tamsulosin 0.4 mg capsule 1 cap PO QPM 11/04/21 11/05/21 thiamine HCl (vitamin B1) 100 mg 1 tab PO QAM 11/04/21 11/05/21 tablet famotidine 20 mg tablet 20 mg PO BID 11/05/21 11/05/21 quetiapine 25 mg tablet 75 mg PO BEDTIME 11/05/21 11/05/21 quetiapine 50 mg tablet 50 mg PO DAILY@1300 11/05/21 11/05/21 <Althea Santo NP - Last Filed: 11/05/21 02:03> Allergies/Adverse Reactions: Allergies Allergy/AdvReac Type Severity Reaction Status Date / Time codeine [CODEINE] Allergy Unknown BECOMES Verified 07/29/21 15:08 HYPER, ITCHY, itching banana Allergy Unknown Verified 11/04/21 07:25 Codeine Sulfate Allergy Unknown Unknown Uncoded 07/29/21 15:08 <Althea Santo NP - Last Filed: 11/05/21 02:03> Review of Systems Review of Systems: Yes Unobtainable due to mental status <Althea Santo NP - Last Filed: 11/05/21 02:03> [facility] Past Medical History Attestation statement: The following information was validated with the patient. <Althea Santo NP - Last Filed: 11/05/21 02:03> Source: old records reviewed <Althea Santo NP - Last Filed: 11/05/21 02:03> Medical History: Medical History Alcoholic dementia HTN (hypertension) Humeral fracture Hx of dislocation of shoulder Prostate cancer Seasonal allergies <Althea Santo NP - Last Filed: 11/05/21 02:03> Surgical History: Surgical History History of surgery <Althea Santo NP - Last Filed: 11/05/21 02:03> Social History Social History: Social History Household Members: None Housing: Apartment Do you presently have visiting nurse or other home services: No Unable to assess alcohol history related to: Unknown Patient Tobacco Use Status: Never used Tobacco Advance Directives: Yes Advance Directives on File: Yes Advance Directives Date on File: 10/05/21 Current occupational status: retired <Althea Santo NP - Last Filed: 11/05/21 02:03> Physical Exam ED Vital Signs: Vital Signs - 24 hr 11/05/21 00:07 Temperature 98.0 F Pulse Rate 72 Respiratory Rate 16 Blood Pressure 120/86 Pulse Oximetry 95 BMI result Body Mass Index 25.0 <Althea Santo NP - Last Filed: 11/05/21 02:03> Vital Signs - 24 hr 11/05/21 00:07 Temperature 98.0 F Pulse Rate 72 Respiratory Rate 16 Blood Pressure 120/86 Pulse Oximetry 95 BMI result Body Mass Index 25.0 <Nikki Saez MD - Last Filed: 11/05/21 04:00> Appearance: Alert. No acute distress. Eyes: Pupils equal, round and reactive to light. ENT: Pharynx normal. Neck: Normal inspection. Neck supple. CVS: Normal heart rate and rhythm. Pulses normal. Respiratory: No respiratory distress. Breath sounds normal. Abdomen: Soft and nontender. Skin: Skin warm and dry. Normal skin color. Normal skin turgor. Extremities: No lower extremity edema. Gait well-balanced well coordinated. Neuro: No motor deficit. No sensory deficit. Unable to follow directions to complete cranial nerve assessment. <Althea Santo NP - Last Filed: 11/05/21 02:03> Course Course Course Narrative: 66-year-old male presents from half-way facility via EMS for dementia and altered mental status. Patient was evaluated for similar circumstances less than 24 hours ago. At this time I will order lab values, ch est x-ray, and urinalysis. Will order case Management social media director consult. Patient is not able to answer any questions and occasionally follows simple commands. Vital signs are stable and within normal limits. 02:02 sign-out to Dr. Saez. Lab values are pending. <Althea Santo NP - Last Filed: 11/05/21 02:03> 66-year-old male presents from half-way [facility] via EMS for dementia and altered mental status. Patient was evaluated for similar circumstances less than 24 hours ago. At this time I will order lab values, chest x-ray, and urinalysis. Will order case Management social media director consult. Patient is not able to answer any questions and occasionally follows simple commands. Vital signs are stable and within normal limits. 02:02 sign-out to Dr. Saez. Lab values are pending. [id number]: 66-year-old male with known dementia and sent in from half-way [facility] for concerns of altered mental status. Review all investigations otherwise negative for acute findings. Patient is otherwise medically stable for further evaluation by case management and physical therapy. <Nikki Saez MD - Last Filed: 11/05/21 04:00> Reevaluation(s) Reevaluation #1: Patient placed in physician observation because the patient needed more time for evaluation by case management and physical therapy. At the time observation was started the patient's vital signs were stable, patient is alert and oriented, neuro: Nonfocal, CV RRR, lungs clear <Nikki Saez MD - Last Filed: 11/05/21 04:00> Time: 03:59 <Nikki Saez MD - Last Filed: 11/05/21 04:00> MDM - Altered Mental Status Differential Diagnosis Differential diagnosis: Likely altered mental status, dementia, hypoglycemia, hyponatremia and sepsis <Althea Santo NP - Last Filed: 11/05/21 02:03> Medical Records Attestation: I reviewed the patient's medical records. <Althea Santo NP - Last Filed: 11/05/21 02:03> Lab Data Attestation: I reviewed the patient's lab results. <Althea Santo NP - Last Filed: 11/05/21 02:03> Result diagrams: : 11/05/21 01:24 11/05/21 01:24 <Althea Santo NP - Last Filed: 11/05/21 02:03> Labs: Lab Results 11/05/21 11/05/21 11/05/21 Range/Units 00:39 01:07 01:24 WBC 7.6 (4.8-10.8) X10*3/uL RBC 3.22 L (4.60-5.80) X10*6/uL Hgb 9.1 L (14.0-18.0) g/dl Hct 30.3 L (42.0-52.0) % MCV 94.1 (80.0-98.0) fL MCH 28.3 (27.0-33.0) pg MCHC 30.0 L (31.0-36.0) g/dl RDW 14.2 (11.0-16.0) % Plt Count 216 D (160-400) X10*3/uL MPV 8.8 L (9.4-12.4) fL Immature Gran % (Auto) 0.3 (0.0-0.4) % Neut % (Auto) 48.7 (45-73) % Lymph % (Auto) 31.8 (20-40) % Floyd % (Auto) 11.2 H (2-11) % Eos % (Auto) 7.1 H (0-4) % Baso % (Auto) 0.9 (0-2) % Lymph # (Auto) 2.4 (1.2-4.9) X10*3/uL Floyd # (Auto) 0.9 (0.1-1.2) X10*3/uL Eos # (Auto) 0.5 H (0.0-0.4) X10*3/uL Baso # (Auto) 0.1 (0.0-0.2) X10*3/uL Abs Immat Gran (auto) 0.02 (0.00-0.03) X10*3/uL Absolute Neuts (auto) 3.7 (2.0-8.3) x10*3/uL Absolute Nucleated RBC 0.000 (0.0-0.012) X10*3/uL Nucleated RBC % (auto) 0.0 (0.0-0.2) /100WBC Sodium (135-145) mmol/L Potassium (3.3-5.1) mmol/L Chloride (96-108) mmol/L Carbon Dioxide (22-29) mmol/L Anion Gap (12-20) BUN (9-16) mg/dL Creatinine (0.5-1.4) mg/dL Estim Creat Clear Calc Estimated GFR POC Glucose 72 (60-115) mg/dL Random Glucose (60-115) mg/dL Calcium (8.4-10.2) mg/dL Magnesium (1.6-2.6) mg/dL Troponin I High Sens (<3.5-35.0) ng/L Urine Color Urine Appearance Urine pH (5.0-8.0) Ur Specific [place] (1.005-1.025) Urine Protein (NEG-TRACE) MG/DL Urine Glucose (UA) (NEG) MG/DL Urine Ketones (NEG) MG/DL Urine Blood (NEG) Urine Nitrite (NEG) Ur Leukocyte Esterase (NEG) Urine Opiates Screen (Not Detect) Urine Fentanyl Screen (Not Detect) Ur Barbiturates Screen (Not Detect) Ur Phencyclidine Scrn (Not Detect) Ur Amphetamines Screen (Not Detect) U Benzodiazepines Scrn (Not Detect) Urine Cocaine Screen (Not Detect) U Marijuana (THC) Screen (Not Detect) COVID-19 (TIGRE) Negative (Negative) COVID-19 Clin Com See Note 11/05/21 11/05/21 11/05/21 Range/Units 01:24 01:24 03:14 WBC (4.8-10.8) X10*3/uL RBC (4.60-5.80) X10*6/uL Hgb (14.0-18.0) g/dl Hct (42.0-52.0) % MCV (80.0-98.0) fL MCH (27.0-33.0) pg MCHC (31.0-36.0) g/dl RDW (11.0-16.0) % Plt Count (160-400) X10*3/uL MPV (9.4-12.4) fL Immature Gran % (Auto) (0.0-0.4) % Neut % (Auto) (45-73) % Lymph % (Auto) (20-40) % Floyd % (Auto) (2-11) % Eos % (Auto) (0-4) % Baso % (Auto) (0-2) % Lymph # (Auto) (1.2-4.9) X10*3/uL Floyd # (Auto) (0.1-1.2) X10*3/uL Eos # (Auto) (0.0-0.4) X10*3/uL Baso # (Auto) (0.0-0.2) X10*3/uL Abs Immat Gran (auto) (0.00-0.03) X10*3/uL Absolute Neuts (auto) (2.0-8.3) x10*3/uL Absolute Nucleated RBC (0.0-0.012) X10*3/uL Nucleated RBC % (auto) (0.0-0.2) /100WBC Sodium 136 (135-145) mmol/L Potassium 4.3 (3.3-5.1) mmol/L Chloride 105 (96-108) mmol/L Carbon Dioxide 21 L (22-29) mmol/L Anion Gap 14 (12-20) BUN 31 H (9-16) mg/dL Creatinine 2.33 H (0.5-1.4) mg/dL Estim Creat Clear Calc 28.1 Estimated GFR 28 POC Glucose (60-115) mg/dL Random Glucose 89 (60-115) mg/dL Calcium 9.1 (8.4-10.2) mg/dL Magnesium 2.0 (1.6-2.6) mg/dL Troponin I High Sens 7.4 (<3.5-35.0) ng/L Urine Color Urine Appearance Urine pH (5.0-8.0) Ur Specific [place] (1.005-1.025) Urine Protein (NEG-TRACE) MG/DL Urine Glucose (UA) (NEG) MG/DL Urine Ketones (NEG) MG/DL Urine Blood (NEG) Urine Nitrite (NEG) Ur Leukocyte Esterase (NEG) Urine Opiates Screen Not Detected (Not Detect) Urine Fentanyl Screen Not Detected (Not Detect) Ur Barbiturates Screen POSITIVE H (Not Detect) Ur Phencyclidine Scrn Not Detected (Not Detect) Ur Amphetamines Screen Not Detected (Not Detect) U Benzodiazepines Scrn Not Detected (Not Detect) Urine Cocaine Screen Not Detected (Not Detect) U Marijuana (THC) Screen Not Detected (Not Detect) COVID-19 (TIGRE) (Negative) COVID-19 Clin Com 11/05/21 Range/Units 03:14 WBC (4.8-10.8) X10*3/uL RBC (4.60-5.80) X10*6/uL Hgb (14.0-18.0) g/dl Hct (42.0-52.0) % MCV (80.0-98.0) fL MCH (27.0-33.0) pg MCHC (31.0-36.0) g/dl RDW (11.0-16.0) % Plt Count (160-400) X10*3/uL MPV (9.4-12.4) fL Immature Gran % (Auto) (0.0-0.4) % Neut % (Auto) (45-73) % Lymph % (Auto) (20-40) % Floyd % (Auto) (2-11) % Eos % (Auto) (0-4) % Baso % (Auto) (0-2) % Lymph # (Auto) (1.2-4.9) X10*3/uL Floyd # (Auto) (0.1-1.2) X10*3/uL Eos # (Auto) (0.0-0.4) X10*3/uL Baso # (Auto) (0.0-0.2) X10*3/uL Abs Immat Gran (auto) (0.00-0.03) X10*3/uL Absolute Neuts (auto) (2.0-8.3) x10*3/uL Absolute Nucleated RBC (0.0-0.012) X10*3/uL Nucleated RBC % (auto) (0.0-0.2) /100WBC Sodium (135-145) mmol/L Potassium (3.3-5.1) mmol/L Chloride (96-108) mmol/L Carbon Dioxide (22-29) mmol/L Anion Gap (12-20) BUN (9-16) mg/dL Creatinine (0.5-1.4) mg/dL Estim Creat Clear Calc Estimated GFR POC Glucose (60-115) mg/dL Random Glucose (60-115) mg/dL Calcium (8.4-10.2) mg/dL Magnesium (1.6-2.6) mg/dL Troponin I High Sens (<3.5-35.0) ng/L Urine Color YELLOW Urine Appearance CLEAR Urine pH 6.0 (5.0-8.0) Ur Specific [place] <= 1.005 (1.005-1.025) Urine Protein NEG (NEG-TRACE) MG/DL Urine Glucose (UA) NEG (NEG) MG/DL Urine Ketones NEG (NEG) MG/DL Urine Blood NEG (NEG) Urine Nitrite NEG (NEG) Ur Leukocyte Esterase NEG (NEG) Urine Opiates Screen (Not Detect) Urine Fentanyl Screen (Not Detect) Ur Barbiturates Screen (Not Detect) Ur Phencyclidine Scrn (Not Detect) Ur Amphetamines Screen (Not Detect) U Benzodiazepines Scrn (Not Detect) Urine Cocaine Screen (Not Detect) U Marijuana (THC) Screen (Not Detect) COVID-19 (TIGRE) (Negative) COVID-19 Clin Com <Althea Santo, FRANCES - Last Filed: 11/05/21 02:03> Lab Results 11/05/21 11/05/21 11/05/21 Range/Units 00:39 01:07 01:24 WBC 7.6 (4.8-10.8) X10*3/uL RBC 3.22 L (4.60-5.80) X10*6/uL Hgb 9.1 L (14.0-18.0) g/dl Hct 30.3 L (42.0-52.0) % MCV 94.1 (80.0-98.0) fL MCH 28.3 (27.0-33.0) pg MCHC 30.0 L (31.0-36.0) g/dl RDW 14.2 (11.0-16.0) % Plt Count 216 D (160-400) X10*3/uL MPV 8.8 L (9.4-12.4) fL Immature Gran % (Auto) 0.3 (0.0-0.4) % Neut % (Auto) 48.7 (45-73) % Lymph % (Auto) 31.8 (20-40) % Floyd % (Auto) 11.2 H (2-11) % Eos % (Auto) 7.1 H (0-4) % Baso % (Auto) 0.9 (0-2) % Lymph # (Auto) 2.4 (1.2-4.9) X10*3/uL Floyd # (Auto) 0.9 (0.1-1.2) X10*3/uL Eos # (Auto) 0.5 H (0.0-0.4) X10*3/uL Baso # (Auto) 0.1 (0.0-0.2) X10*3/uL Abs Immat Gran (auto) 0.02 (0.00-0.03) X10*3/uL Absolute Neuts (auto) 3.7 (2.0-8.3) x10*3/uL Absolute Nucleated RBC 0.000 (0.0-0.012) X10*3/uL Nucleated RBC % (auto) 0.0 (0.0-0.2) /100WBC Sodium (135-145) mmol/L Potassium (3.3-5.1) mmol/L Chloride (96-108) mmol/L Carbon Dioxide (22-29) mmol/L Anion Gap (12-20) BUN (9-16) mg/dL Creatinine (0.5-1.4) mg/dL Estim Creat Clear Calc Estimated GFR POC Glucose 72 (60-115) mg/dL Random Glucose (60-115) mg/dL Calcium (8.4-10.2) mg/dL Magnesium (1.6-2.6) mg/dL Troponin I High Sens (<3.5-35.0) ng/L Urine Color Urine Appearance Urine pH (5.0-8.0) Ur Specific [place] (1.005-1.025) Urine Protein (NEG-TRACE) MG/DL Urine Glucose (UA) (NEG) MG/DL Urine Ketones (NEG) MG/DL Urine Blood (NEG) Urine Nitrite (NEG) Ur Leukocyte Esterase (NEG) Urine Opiates Screen (Not Detect) Urine Fentanyl Screen (Not Detect) Ur Barbiturates Screen (Not Detect) Ur Phencyclidine Scrn (Not Detect) Ur Amphetamines Screen (Not Detect) U Benzodiazepines Scrn (Not Detect) Urine Cocaine Screen (Not Detect) U Marijuana (THC) Screen (Not Detect) COVID-19 (TIGRE) Negative (Negative) COVID-19 Clin Com See Note 11/05/21 11/05/21 11/05/21 Range/Units 01:24 01:24 03:14 WBC (4.8-10.8) X10*3/uL RBC (4.60-5.80) X10*6/uL Hgb (14.0-18.0) g/dl Hct (42.0-52.0) % MCV (80.0-98.0) fL MCH (27.0-33.0) pg MCHC (31.0-36.0) g/dl RDW (11.0-16.0) % Plt Count (160-400) X10*3/uL MPV (9.4-12.4) fL Immature Gran % (Auto) (0.0-0.4) % Neut % (Auto) (45-73) % Lymph % (Auto) (20-40) % [place] % (Auto) (2-11) % Eos % (Auto) (0-4) % Baso % (Auto) (0-2) % Lymph # (Auto) (1.2-4.9) X10*3/uL [place] # (Auto) (0.1-1.2) X10*3/uL Eos # (Auto) (0.0-0.4) X10*3/uL Baso # (Auto) (0.0-0.2) X10*3/uL Abs Immat Gran (auto) (0.00-0.03) X10*3/uL Absolute Neuts (auto) (2.0-8.3) x10*3/uL Absolute Nucleated RBC (0.0-0.012) X10*3/uL Nucleated RBC % (auto) (0.0-0.2) /100WBC Sodium 136 (135-145) mmol/L Potassium 4.3 (3.3-5.1) mmol/L Chloride 105 (96-108) mmol/L Carbon Dioxide 21 L (22-29) mmol/L Anion Gap 14 (12-20) BUN 31 H (9-16) mg/dL Creatinine 2.33 H (0.5-1.4) mg/dL Estim Creat Clear Calc 28.1 Estimated GFR 28 POC Glucose (60-115) mg/dL Random Glucose 89 (60-115) mg/dL Calcium 9.1 (8.4-10.2) mg/dL Magnesium 2.0 (1.6-2.6) mg/dL Troponin I High Sens 7.4 (<3.5-35.0) ng/L Urine Color Urine Appearance Urine pH (5.0-8.0) Ur Specific [place] (1.005-1.025) Urine Protein (NEG-TRACE) MG/DL Urine Glucose (UA) (NEG) MG/DL Urine Ketones (NEG) MG/DL Urine Blood (NEG) Urine Nitrite (NEG) Ur Leukocyte Esterase (NEG) Urine Opiates Screen Not Detected (Not Detect) Urine Fentanyl Screen Not Detected (Not Detect) Ur Barbiturates Screen POSITIVE H (Not Detect) Ur Phencyclidine Scrn Not Detected (Not Detect) Ur Amphetamines Screen Not Detected (Not Detect) U Benzodiazepines Scrn Not Detected (Not Detect) Urine Cocaine Screen Not Detected (Not Detect) U Marijuana (THC) Screen Not Detected (Not Detect) COVID-19 (TIGRE) (Negative) COVID-19 Clin Com 11/05/21 Range/Units 03:14 WBC (4.8-10.8) X10*3/uL RBC (4.60-5.80) X10*6/uL Hgb (14.0-18.0) g/dl Hct (42.0-52.0) % MCV (80.0-98.0) fL MCH (27.0-33.0) pg MCHC (31.0-36.0) g/dl RDW (11.0-16.0) % Plt Count (160-400) X10*3/uL MPV (9.4-12.4) fL Immature Gran % (Auto) (0.0-0.4) % Neut % (Auto) (45-73) % Lymph % (Auto) (20-40) % Floyd % (Auto) (2-11) % Eos % (Auto) (0-4) % Baso % (Auto) (0-2) % Lymph # (Auto) (1.2-4.9) X10*3/uL Floyd # (Auto) (0.1-1.2) X10*3/uL Eos # (Auto) (0.0-0.4) X10*3/uL Baso # (Auto) (0.0-0.2) X10*3/uL Abs Immat Gran (auto) (0.00-0.03) X10*3/uL Absolute Neuts (auto) (2.0-8.3) x10*3/uL Absolute Nucleated RBC (0.0-0.012) X10*3/uL Nucleated RBC % (auto) (0.0-0.2) /100WBC Sodium (135-145) mmol/L Potassium (3.3-5.1) mmol/L Chloride (96-108) mmol/L Carbon Dioxide (22-29) mmol/L Anion Gap (12-20) BUN (9-16) mg/dL Creatinine (0.5-1.4) mg/dL Estim Creat Clear Calc Estimated GFR POC Glucose (60-115) mg/dL Random Glucose (60-115) mg/dL Calcium (8.4-10.2) mg/dL Magnesium (1.6-2.6) mg/dL Troponin I High Sens (<3.5-35.0) ng/L Urine Color YELLOW Urine Appearance CLEAR Urine pH 6.0 (5.0-8.0) Ur Specific [place] <= 1.005 (1.005-1.025) Urine Protein NEG (NEG-TRACE) MG/DL Urine Glucose (UA) NEG (NEG) MG/DL Urine Ketones NEG (NEG) MG/DL Urine Blood NEG (NEG) Urine Nitrite NEG (NEG) Ur Leukocyte Esterase NEG (NEG) Urine Opiates Screen (Not Detect) Urine Fentanyl Screen (Not Detect) Ur Barbiturates Screen (Not Detect) Ur Phencyclidine Scrn (Not Detect) Ur Amphetamines Screen (Not Detect) U Benzodiazepines Scrn (Not Detect) Urine Cocaine Screen (Not Detect) U Marijuana (THC) Screen (Not Detect) COVID-19 (TIGRE) (Negative) COVID-19 Clin Com <Nikki Saez MD - Last Filed: 11/05/21 04:00> Imaging Data Chest x-ray: Attestation: I personally reviewed and interpreted this imaging study as follows: <Althea Santo NP - Last Filed: 11/05/21 02:03> Radiologist's impression: EXAMINATION: XR CHEST CLINICAL INFORMATION: Altered mental status with cough COMPARISON: 10/04/2021 TECHNIQUE: Frontal view of the chest was obtained. FINDINGS: No significant abnormality is noted involving the heart, lungs or mediastinum. Again noted are severe destructive degenerative changes involving both shoulders, unchanged. XR/XR chest 1V IMPRESSION: No acute intrathoracic disease <Althea Santo NP - Last Filed: 11/05/21 02:03> ECG Data ECG #1: Attestation: I personally reviewed and interpreted this ECG as follows: <Althea Santo NP - Last Filed: 11/05/21 02:03> ECG interpretation date: 11/05/21 <Althea Santo NP - Last Filed: 11/05/21 02:03> ECG interpretation time: 01:44 <Althea Santo NP - Last Filed: 11/05/21 02:03> Prior ECG tracings: available for review <Althea Santo NP - Last Filed: 11/05/21 02:03> Interpretation: Vent. rate 82 BPM AR interval * ms QRS duration 74 ms QT/QTc 376/439 ms P-R-T axes * 51 52 Accelerated Junctional rhythm Abnormal ECG When compared with ECG of 04-OCT-2021 02:25, Junctional rhythm has replaced Sinus rhythm <Althea Santo NP - Last Filed: 11/05/21 02:03> Discharge Plan Discharge Clinical Impression: Altered mental status, Dementia <Althea Santo NP - Last Filed: 11/05/21 02:03> Patient Disposition: Still a Patient <Althea Santo NP - Last Filed: 11/05/21 02:03> Prescriptions: No Action quetiapine 25 mg Tablet 75 mg PO BEDTIME 0RF quetiapine 50 mg Tablet 50 mg PO DAILY@1300 0RF famotidine 20 mg Tablet 20 mg PO BID 0RF bupropion HCl 150 mg tablet sustained-release 12 hr 150 mg PO BID 0RF atorvastatin 20 mg tablet 1 tab PO QAM 0RF thiamine HCl (vitamin B1) 100 mg tablet 1 tab PO QAM 0RF aspirin 81 mg tablet,delayed release (DR/EC) 1 tab PO QAM 0RF tamsulosin 0.4 mg capsule 1 cap PO QPM 0RF folic acid 1 mg tablet 1 tab PO QAM 0RF fluticasone propionate 50 mcg/actuation spray,suspension 2 spray intranasal DAILY 0RF sertraline 50 mg tablet 2 tab PO QAM 0RF loratadine 10 mg tablet 1 tab PO DAILY PRN (Reason: allergies) 0RF naproxen 500 mg tablet 1 tab PO BID PRN (Reason: pain) 0RF cholecalciferol (vitamin D3) 50 mcg (2,000 unit) capsule 1 cap PO QAM 0RF metoprolol succinate 50 mg tablet extended release 24 hr 1 tab PO QAM 0RF timolol maleate 0.5 % drops 1 drp ophthalmic-Left DAILY 0RF <Althea Santo POTATO PICKER - Last Filed: 11/05/21 02:03>
[2021-11-05 00:45] LABS: Glucose, Whole Blood 72 mg/dL (60-115)
--- NOTE | 2021-11-05 00:52 | PC.NURSE ---
Patient received his night time medication from custodial, patient groggy, fall risk due to unsteadiness, ordered 1:1 observation for safety, POC was 72 @ 1239 am, med rec completed/pending providers approval, will continue to monitor.
[2021-11-05 01:30] LABS: Basophils Absolute Auto 0.1 X10*3/uL (0.0-0.2); Basophils Percent Auto 0.9 % (0-2); Eosinophils Absolute Auto 0.5 X10*3/uL (0.0-0.4); Eosinophils Percent Auto 7.1 % (0-4); Hematocrit 30.3 % (42.0-52.0); Hemoglobin 9.1 g/dl (14.0-18.0); Imm Gran Abs Auto 0.02 X10*3/uL (0.00-0.03); Imm Gran Pct Auto 0.3 % (0.0-0.4); Lymphocytes Absolute Auto 2.4 X10*3/uL (1.2-4.9); Lymphocytes Percent Auto 31.8 % (20-40); MANUAL DIFF FLAG NO; Mean Corpuscular Hemoglobin 28.3 pg (27.0-33.0); Mean Corpuscular Volume 94.1 fL (80.0-98.0); Mean Platelet Volume 8.8 fL (9.4-12.4); Monocytes Absolute Auto 0.9 X10*3/uL (0.1-1.2); Monocytes Percent Auto 11.2 % (2-11); Neutrophils Absolute Auto 3.7 x10*3/uL (2.0-8.3); Neutrophils Percent Auto 48.7 % (45-73); Platelet Count 216 X10*3/uL (160-400); Red Blood Count 3.22 X10*6/uL (4.60-5.80); Red Cell Distribution Width 14.2 % (11.0-16.0); White Blood Count 7.6 X10*3/uL (4.8-10.8)
[2021-11-05 01:34] LABS: COVID-19 Test Negative (Negative); IDNOW Serial# 55D5AD1C
[2021-11-05 01:54] LABS: Troponin-I High Sensitivity 7.4 ng/L (<3.5-35.0)
[2021-11-05 02:23] LABS: Anion Gap 14 (12-20); Blood Urea Nitrogen 31 mg/dL (9-16); Calcium 9.1 mg/dL (8.4-10.2); Carbon Dioxide 21 mmol/L (22-29); Chloride 105 mmol/L (96-108); Creatinine Clr Calc Pharmacy 28.1; Estimated Glomerular Filt Rate 28; Glucose Random 89 mg/dL (60-115); Potassium 4.3 mmol/L (3.3-5.1); Sodium 136 mmol/L (135-145)
[2021-11-05 03:23] LABS: Appearance Urine CLEAR; Color Urine YELLOW; Glucose Urine UA NEG (NEG); Leukocyte Esterase Urine NEG (NEG); Nitrite Urine NEG (NEG); Specific Gravity - Urine <= 1.005 (1.005-1.025); Urine Blood NEG (NEG); Urine Ketones NEG (NEG); Urine Protein NEG (NEG-TRACE)
[2021-11-05 03:36] LABS: Amphetamine Screen Urine Not Detected (Not Detect); Barbiturates, Urine POSITIVE (Not Detect); Benzodiazepines Screen Urine Not Detected (Not Detect); Cannabinoid Screen Urine Not Detected (Not Detect); Cocaine Screen Urine Not Detected (Not Detect); Fentanyl, urine Not Detected (Not Detect); Opiate Screen Urine Not Detected (Not Detect); Phencyclidine Screen Urine Not Detected (Not Detect)
[2021-11-05] MEDS: OLANZapine 5 MG TABLET PO (05:25)
--- NOTE | 2021-11-05 05:28 | PC.NURSE ---
Patient is one to tone for safety observation, Olanzapine [address] of head and shoulder, patient compliant with CT, pending result at this time, patient is confused mostly but follows direction slowly, patient is now case management case, will continue to monitor,
--- NOTE | 2021-11-05 06:27 | PC.NURSE ---
Patient is currently sleeping, patient reported pain on left shoulder due to impacted fracture, behavior in general is confused but patient follows direction slowly and well, patient is case management case, medication compliant, will continue to monitor.
[2021-11-05 06:39] LABS: Glucose, Whole Blood 90 mg/dL (60-115)
--- NOTE | 2021-11-05 07:06 | PC.NURSE ---
patient appears to remain asleep at present respirations are even and unlabored patient appears in no distress
[2021-11-05] MEDS: Metoprolol Succinate ER 50 MG TAB.ER.24H PO (11:05)
[2021-11-05] MEDS: Aspirin Enteric Coated 81 MG TABLET.DR PO (11:06)
[2021-11-05] MEDS: buPROPion HCl XL 300 MG TAB.ER.24H PO (11:06)
[2021-11-05] MEDS: Cholecalciferol (Vitamin D3) 25 MCG TABLET 50 MCG PO (11:06)
[2021-11-05] MEDS: Sertraline HCL 100 MG TABLET PO (11:06)
[2021-11-05] MEDS: Famotidine 20 MG TABLET PO (11:06)
[2021-11-05] MEDS: QUEtiapine Fumarate 50 MG TABLET PO (13:31)
--- NOTE | 2021-11-05 15:20 | MHC.CM.ED ---
Received case management consult overnight. Patient is at [facility]. He was sent there for STR. [place] [facility] [place] due to AMS. Patient was cleared by Care team and was transferred back to [place]. Patient returned to ER 11/04 d/t AMS. Patient has a history of ETOH dementia. Patient's son, Mikael MCCULLOUGH requesting to speak to case management. Patient's son, Jimbo, requesting to speak to case management. Patient's daughter, Cynthia is HCP. T/W spoke with Cynthia via telephone at [phone].Cynthia is returning home from vacation in [place] today. [place] was going to try to transfer patient to [facility]. Cynthia requested referral to [facility]. Referral made via [employer]. They don't have a male bed on their locked unit. T/W spoke with Mikael Jr. Patient will return to [facility]. Their secondary social studies teacher can continue to try to arrange a transfer to a locked unit. Mikael Mccullough verbalized understanding. Mikael Mccullough will let Cynthia and Jimbo know. [facility] booked. [facility] with chart. Patient, Ilda RN and Nara SOSA aware. Continue to monitor for d/c needs.
--- NOTE | 2021-11-05 17:04 | PC.NURSE ---
This [facility] called [facility] on an ETA at 1701 spoke with [place], she stated that the s crew is in route.
== END 2021-11-05 17:50 | disposition skilled nursing facility (03) ==
PROVIDERS: Nurse Practitioner Family; Emergency Provider Student in an Organized Health Care Education/Training Program; PCP Internal Medicine
DX: F03.90 Unspecified dementia, unspecified severity, without behavioral disturbance, psychotic disturbance, mood disturbance, and anxiety (principal); R41.82 Altered mental status, unspecified; R05.9 Cough, unspecified; Z79.899 Other long term (current) drug therapy; Z20.822 Contact with and (suspected) exposure to COVID-19
CPT/HCPCS: 70450; 71045; 73200; 80048; 80307; 81003; 82947; 83735; 84484; 85025; 87635; 93005; 99284

== ENCOUNTER 2021-11-06 17:46 | Emergency (ER) | payer MEDICARE, MEDICAID, SELFPAY ==
--- NOTE | ~2021-11-06 | CT_ITS ---
EXAMINATION: CT HEAD WITHOUT CONTRAST CLINICAL INFORMATION: Altered mental status. COMPARISON: CT scan of the head 11/06/2019. TECHNIQUE: Contiguous axial imaging was performed from the skull base to vertex without intravenous administration of contrast. This CT examination was performed using dose optimization techniques as appropriate, variously including the following: *Automated exposure control *Adjustment of mA and/or kV according to patient size (this includes techniques or standardized protocols for targeted exams where dose is matched to indication/reason for exam; i.e. extremities or head) *Use of iterative reconstruction technique DLP: 824 mGy-cm FINDINGS: There is no acute intracranial hemorrhage or abnormal extra-axial collection. No intracranial mass effect or midline shift. Lateral and third ventricles are normal. No hydrocephalus. Jim-white matter differentiation is grossly preserved and there is no evidence of acute territorial infarct. The calvarium and skull base are intact. Mastoid air cells and middle ear cavities are well aerated. No active paranasal sinus disease. CT/CT head/brain wo con IMPRESSION: Unremarkable CT scan of the head. No evidence of acute territorial infarct or hemorrhage.
--- NOTE | 2021-11-06 17:56 | ED_ITS ---
HPI - Altered Mental Status General Chief Complaint: Altered Mental Status Stated Complaint: ams/aggressive Time Seen by Provider: 11/06/21 17:56 Source: EMS Mode of arrival: EMS Limitations: altered mental status History of Present Illness HPI narrative: This is a 66-year-old male past medical history significant for hypertension, warning he has aphasia, alcoholic dementia, prostate cancer presenting to the emergency department from a half-way facility for altered mental status, and dementia X 1 day. According to staff members from the half-way facility patient became agitated toward staff and combative after a family meeting. At this time patient has no complaints. He is walking around, unable to answer questions appropriately. Not following commands. Unable to obtain an accurate history. MD complaint: altered mental status Onset (ago): day(s) Severity: severe Context: history of similar presentation Associated symptoms: denies other symptoms Related Data Home Medications Medication Instructions Recorded Confirmed timolol maleate 0.5 % eye drops 1 drp OPHTHALMIC-LEFT DAILY 06/12/21 11/05/21 aspirin 81 mg tablet,delayed 1 tab PO QAM 11/04/21 11/05/21 release atorvastatin 20 mg tablet 1 tab PO QAM 11/04/21 11/05/21 bupropion HCl 150 mg tablet,12 hr 150 mg PO BID 11/04/21 11/05/21 sustained-release cholecalciferol (vitamin D3) 50 1 cap PO QAM 11/04/21 11/05/21 mcg (2,000 unit) capsule fluticasone propionate 50 2 spray INTRANASAL DAILY 11/04/21 11/05/21 mcg/actuation nasal spray,suspension folic acid 1 mg tablet 1 tab PO QAM 11/04/21 11/05/21 loratadine 10 mg tablet 1 tab PO DAILY PRN 11/04/21 11/05/21 metoprolol succinate 50 mg 1 tab PO QAM 11/04/21 11/05/21 tablet,extended release 24 hr naproxen 500 mg tablet 1 tab PO BID PRN 11/04/21 11/05/21 sertraline 50 mg tablet 2 tab PO QAM 11/04/21 11/05/21 tamsulosin 0.4 mg capsule 1 cap PO QPM 11/04/21 11/05/21 thiamine HCl (vitamin B1) 100 mg 1 tab PO QAM 11/04/21 11/05/21 tablet famotidine 20 mg tablet 20 mg PO BID 11/05/21 11/05/21 quetiapine 25 mg tablet 75 mg PO BEDTIME 11/05/21 11/05/21 quetiapine 50 mg tablet 50 mg PO DAILY@1300 11/05/21 11/05/21 Allergies Allergy/AdvReac Type Severity Reaction Status Date / Time codeine [CODEINE] Allergy Unknown BECOMES Verified 07/29/21 15:08 HYPER, ITCHY, itching banana Allergy Unknown Verified 11/04/21 07:25 Codeine Sulfate Allergy Unknown Unknown Uncoded 07/29/21 15:08 Review of Systems Review of Systems: Yes Unobtainable due to mental status PMFSH Past Medical History Attestation statement: The following information was validated with the patient. Source: old records reviewed and nursing notes reviewed Medical History Alcoholic dementia HTN (hypertension) Humeral fracture Hx of dislocation of shoulder Prostate cancer Seasonal allergies Surgical History History of surgery Social History Social History Household Members: None Housing: Apartment Do you presently have visiting nurse or other home services: No Unable to assess alcohol history related to: Unknown Patient Tobacco Use Status: Never used Tobacco Advance Directives: Yes Advance Directives on File: Yes Advance Directives Date on File: 10/05/21 Current occupational status: retired Physical Exam ED Vital Signs: Vital Signs - 24 hr 11/06/21 18:10 Temperature 98.6 F Pulse Rate 68 Blood Pressure 109/71 Pulse Oximetry 96 BMI result Body Mass Index 35.2 VSS Appearance: Alert.? Awake, moving all extremities. Ambulating with steady gait. No acute distress.? Head: Normocephalic, atraumatic, no step-offs or deformities Eyes: Pupils equal, round and reactive to light.? ENT: Pharynx normal.? Neck: Normal inspection.? Neck supple.? CVS: Normal heart rate and rhythm.? Pulses normal.? Respiratory: No respiratory distress.? Breath sounds normal.? Abdomen: Soft and nontender.? Skin: Skin warm and dry.? Normal skin color.? Normal skin turgor.? Extremities: No lower extremity edema.? No calf ttp. 5/5 strength to bilateral upper and lower extremities Back: No midline tenderness, no C-spine tenderness, full range of motion, no CVA tenderness bilaterally Neuro: Patient is not alert and oriented to person place time or situation. Alert, awake. Unable to follow commands. No motor deficit.? No sensory deficit. CN 2-12 intact Course Reevaluation(s) Reevaluation #1: CBC appears to be at patient's baseline. No leukocytosis. Patient sodium on the lower end of normal. Will give him some fluids. BUN and creatinine in chronically elevated appears to be at patient's baseline. Patient's urine is clean. Toxicology positive for barbiturates. Ethanol negative. Time: 19:22 Reevaluation #2: I have tried reaching out to patient's half-way facilities multiple times. However no answer. I have left messages x2. Time: 19:45 Reevaluation #3: Spoke to patient skilled nurse facility who initially told me patient could not return. I asked to speak to the parole director Yohana Shelton who can be reached at [phone] who tells me patient can return and should return in order for them to be able to transition patient to a locked unit. To clarify what happened today it was reported to me after speaking to staff members the patient had a visit earlier today who brought him a lot of sugary drinks, likely his significant other, when significant other left patient packed his bags and tried to follow her out the door. When staff members tried to amirah marquez patient patient got aggressive and started throwing wheelchairs and anything that was around him. It appears as though this is not his 1st episode of aggressive behavior. Facility is concerned as he is not on the locked unit. The plan is to transfer patient to another facility, they are taking care of this. Time: 20:57 Additional Reevaluation(s): CT of the head negative. No acute findings. At this time patient has been medically cleared. He can return back to his facility. practical nursing instructor at the facility okay with this plan. Comfortable discharge To note patient did refuse IV however he is tolerating fluids by mouth. His sodium is only slightly on the lower end of normal, will continue to encourage fluids. MDM - Altered Mental Status MDM Narrative Medical decision making narrative: 1759 66 yo m presents w/ ams and aggression X1 day Physical examination significant for confused elderly male. Ambulating with steady gait. Lungs clear. Regular rate and rhythm. Abdomen soft non tender non distended. Awake, alert, moving all exremities. No acute distress. Speaking about random things throughout my exam Plan basic labs CT basic labs and urine. Will rule out CVA and UTI. Medical Records Attestation: I reviewed the patient's medical records. Lab Data Attestation: I reviewed the patient's lab results. Result diagrams: 11/06/21 18:40 11/06/21 18:40 Labs: Lab Results 11/06/21 11/06/21 11/06/21 Range/Units 18:40 18:40 18:40 WBC 7.4 (4.8-10.8) X10*3/uL RBC 3.27 L (4.60-5.80) X10*6/uL Hgb 9.2 L (14.0-18.0) g/dl Hct 31.1 L (42.0-52.0) % MCV 95.1 (80.0-98.0) fL MCH 28.1 (27.0-33.0) pg MCHC 29.6 L (31.0-36.0) g/dl RDW 14.3 (11.0-16.0) % Plt Count 220 (160-400) X10*3/uL MPV 9.3 L (9.4-12.4) fL Immature Gran % (Auto) 0.3 (0.0-0.4) % Neut % (Auto) 51.7 (45-73) % Lymph % (Auto) 29.3 (20-40) % [place] % (Auto) 10.8 (2-11) % Eos % (Auto) 7.2 H (0-4) % Baso % (Auto) 0.7 (0-2) % Lymph # (Auto) 2.2 (1.2-4.9) X10*3/uL [place]ary # (Auto) 0.8 (0.1-1.2) X10*3/uL Eos # (Auto) 0.5 H (0.0-0.4) X10*3/uL Baso # (Auto) 0.1 (0.0-0.2) X10*3/uL Abs Immat Gran (auto) 0.02 (0.00-0.03) X10*3/uL Absolute Neuts (auto) 3.8 (2.0-8.3) x10*3/uL Absolute Nucleated RBC 0.000 (0.0-0.012) X10*3/uL Nucleated RBC % (auto) 0.0 (0.0-0.2) /100WBC Sodium 133 L (135-145) mmol/L Potassium 4.1 (3.3-5.1) mmol/L Chloride 101 (96-108) mmol/L Carbon Dioxide 23 (22-29) mmol/L Anion Gap 13 (12-20) BUN 29 H (9-16) mg/dL Creatinine 2.20 H (0.5-1.4) mg/dL Estim Creat Clear Calc 35.1 Estimated GFR 30 Random Glucose 100 (60-115) mg/dL Calcium 9.0 (8.4-10.2) mg/dL Magnesium 1.8 (1.6-2.6) mg/dL Total Bilirubin 0.5 (0.0-1.0) mg/dL AST 21 (5-37) U/L ALT 11 (0-40) U/L Alkaline Phosphatase 114 (39-117) U/L Total Protein 8.4 H (6.5-8.0) g/dL Albumin 3.7 (3.5-5.0) g/dL Urine Color Urine Appearance Urine pH (5.0-8.0) Ur Specific [place] (1.005-1.025) Urine Protein (NEG-TRACE) MG/DL Urine Glucose (UA) (NEG) MG/DL Urine Ketones (NEG) MG/DL Urine Blood (NEG) Urine Nitrite (NEG) Ur Leukocyte Esterase (NEG) Urine Opiates Screen (Not Detect) Urine Fentanyl Screen (Not Detect) Ur Barbiturates Screen (Not Detect) Ur Phencyclidine Scrn (Not Detect) Ur Amphetamines Screen (Not Detect) U Benzodiazepines Scrn (Not Detect) Urine Cocaine Screen (Not Detect) U Marijuana (THC) Screen (Not Detect) Ethyl Alcohol mg/dL COVID-19 (TIGRE) Negative (Negative) COVID-19 Clin Com See Note 11/06/21 11/06/21 11/06/21 Range/Units 18:40 18:52 18:52 WBC (4.8-10.8) X10*3/uL RBC (4.60-5.80) X10*6/uL Hgb (14.0-18.0) g/dl Hct (42.0-52.0) % MCV (80.0-98.0) fL MCH (27.0-33.0) pg MCHC (31.0-36.0) g/dl RDW (11.0-16.0) % Plt Count (160-400) X10*3/uL MPV (9.4-12.4) fL Immature Gran % (Auto) (0.0-0.4) % Neut % (Auto) (45-73) % Lymph % (Auto) (20-40) % [place] % (Auto) (2-11) % Eos % (Auto) (0-4) % Baso % (Auto) (0-2) % Lymph # (Auto) (1.2-4.9) X10*3/uL [place] # (Auto) (0.1-1.2) X10*3/uL Eos # (Auto) (0.0-0.4) X10*3/uL Baso # (Auto) (0.0-0.2) X10*3/uL Abs Immat Gran (auto) (0.00-0.03) X10*3/uL Absolute Neuts (auto) (2.0-8.3) x10*3/uL Absolute Nucleated RBC (0.0-0.012) X10*3/uL Nucleated RBC % (auto) (0.0-0.2) /100WBC Sodium (135-145) mmol/L Potassium (3.3-5.1) mmol/L Chloride (96-108) mmol/L Carbon Dioxide (22-29) mmol/L Anion Gap (12-20) BUN (9-16) mg/dL Creatinine (0.5-1.4) mg/dL Estim Creat Clear Calc Estimated GFR Random Glucose (60-115) mg/dL Calcium (8.4-10.2) mg/dL Magnesium (1.6-2.6) mg/dL Total Bilirubin (0.0-1.0) mg/dL AST (5-37) U/L ALT (0-40) U/L Alkaline Phosphatase (39-117) U/L Total Protein (6.5-8.0) g/dL Albumin (3.5-5.0) g/dL Urine Color STRAW Urine Appearance CLEAR Urine pH 6.0 (5.0-8.0) Ur Specific [place] <= 1.005 (1.005-1.025) Urine Protein NEG (NEG-TRACE) MG/DL Urine Glucose (UA) NEG (NEG) MG/DL Urine Ketones NEG (NEG) MG/DL Urine Blood NEG (NEG) Urine Nitrite NEG (NEG) Ur Leukocyte Esterase NEG (NEG) Urine Opiates Screen Not Detected (Not Detect) Urine Fentanyl Screen Not Detected (Not Detect) Ur Barbiturates Screen POSITIVE H (Not Detect) Ur Phencyclidine Scrn Not Detected (Not Detect) Ur Amphetamines Screen Not Detected (Not Detect) U Benzodiazepines Scrn Not Detected (Not Detect) Urine Cocaine Screen Not Detected (Not Detect) U Marijuana (THC) Screen Not Detected (Not Detect) Ethyl Alcohol < 10 mg/dL COVID-19 (TIGRE) (Negative) COVID-19 Clin Com Critical Care Time Critical Care Time Critical Care Time: No Discharge Plan Discharge Clinical Impression: Altered mental status Patient Disposition: Home, Self-Care Instructions: Altered Mental Status (ED) Additional Instructions: Take your medications as prescribed. If you were prescribed antibiotics today, it is important that you take your medication to their entirety, do not skip any doses, do not finish them early. Follow-up with your primary care provider this week. Return to the emergency department with new or worsening symptoms. Such as fevers, chills, chest pain, shortness of breath, nausea, vomiting, dizziness, headache, vision changes, lethargy Patient was COVID negative today. In case of emergency call 911 Patient's laboratory studies and head CT appear to be unchanged from previous. He is medically cleared at this time to return to half-way facility. Prescriptions: No Action quetiapine 25 mg Tablet 75 mg PO BEDTIME 0RF quetiapine 50 mg Tablet 50 mg PO DAILY@1300 0RF famotidine 20 mg Tablet 20 mg PO BID 0RF bupropion HCl 150 mg tablet sustained-release 12 hr 150 mg PO BID 0RF atorvastatin 20 mg tablet 1 tab PO QAM 0RF thiamine HCl (vitamin B1) 100 mg tablet 1 tab PO QAM 0RF aspirin 81 mg tablet,delayed release (DR/EC) 1 tab PO QAM 0RF tamsulosin 0.4 mg capsule 1 cap PO QPM 0RF folic acid 1 mg tablet 1 tab PO QAM 0RF fluticasone propionate 50 mcg/actuation spray,suspension 2 spray intranasal DAILY 0RF sertraline 50 mg tablet 2 tab PO QAM 0RF loratadine 10 mg tablet 1 tab PO DAILY PRN (Reason: allergies) 0RF naproxen 500 mg tablet 1 tab PO BID PRN (Reason: pain) 0RF cholecalciferol (vitamin D3) 50 mcg (2,000 unit) capsule 1 cap PO QAM 0RF metoprolol succinate 50 mg tablet extended release 24 hr 1 tab PO QAM 0RF timolol maleate 0.5 % drops 1 drp ophthalmic-Left DAILY 0RF Referrals: Physician,Unknown J [Primary Care Provider] - 2 days
[2021-11-06 18:07] VITALS: BP 107/64; PULSE 84; O2SAT 99; BMI 35.2
[2021-11-06 18:10] VITALS: BP 109/71; PULSE 68; TEMP 37; O2SAT 96
[2021-11-06 18:48] LABS: MANUAL DIFF FLAG NO
[2021-11-06 18:50] LABS: Basophils Absolute Auto 0.1 X10*3/uL (0.0-0.2); Basophils Percent Auto 0.7 % (0-2); Eosinophils Absolute Auto 0.5 X10*3/uL (0.0-0.4); Eosinophils Percent Auto 7.2 % (0-4); Hematocrit 31.1 % (42.0-52.0); Hemoglobin 9.2 g/dl (14.0-18.0); Imm Gran Abs Auto 0.02 X10*3/uL (0.00-0.03); Imm Gran Pct Auto 0.3 % (0.0-0.4); Lymphocytes Absolute Auto 2.2 X10*3/uL (1.2-4.9); Lymphocytes Percent Auto 29.3 % (20-40); Mean Corpuscular HGB Conc 29.6 g/dl (31.0-36.0); Mean Corpuscular Hemoglobin 28.1 pg (27.0-33.0); Mean Corpuscular Volume 95.1 fL (80.0-98.0); Mean Platelet Volume 9.3 fL (9.4-12.4); Monocytes Absolute Auto 0.8 X10*3/uL (0.1-1.2); Monocytes Percent Auto 10.8 % (2-11); Neutrophils Absolute Auto 3.8 x10*3/uL (2.0-8.3); Neutrophils Percent Auto 51.7 % (45-73); Platelet Count 220 X10*3/uL (160-400); Red Blood Count 3.27 X10*6/uL (4.60-5.80); Red Cell Distribution Width 14.3 % (11.0-16.0); White Blood Count 7.4 X10*3/uL (4.8-10.8)
[2021-11-06 19:01] LABS: Ethanol < 10 mg/dL
[2021-11-06 19:02] LABS: Appearance Urine CLEAR; Color Urine STRAW; Glucose Urine UA NEG (NEG); Leukocyte Esterase Urine NEG (NEG); Nitrite Urine NEG (NEG); Specific Gravity - Urine <= 1.005 (1.005-1.025); Urine Blood NEG (NEG); Urine Ketones NEG (NEG); Urine Protein NEG (NEG-TRACE)
[2021-11-06 19:04] LABS: COVID-19 Test Negative (Negative)
[2021-11-06 19:05] LABS: Alanine Aminotransferase 11 U/L (0-40); Albumin Level 3.7 g/dL (3.5-5.0); Alkaline Phosphatase 114 U/L (39-117); Anion Gap 13 (12-20); Aspartate Amino Transferase 21 U/L (5-37); Bilirubin Total 0.5 mg/dL (0.0-1.0); Blood Urea Nitrogen 29 mg/dL (9-16); Carbon Dioxide 23 mmol/L (22-29); Chloride 101 mmol/L (96-108); Creatinine Clr Calc Pharmacy 35.1; Estimated Glomerular Filt Rate 30; Glucose Random 100 mg/dL (60-115); Magnesium 1.8 mg/dL (1.6-2.6); Potassium 4.1 mmol/L (3.3-5.1); Sodium 133 mmol/L (135-145); Total Protein 8.4 g/dL (6.5-8.0)
[2021-11-06 19:17] LABS: Amphetamine Screen Urine Not Detected (Not Detect); Barbiturates, Urine POSITIVE (Not Detect); Benzodiazepines Screen Urine Not Detected (Not Detect); Cannabinoid Screen Urine Not Detected (Not Detect); Cocaine Screen Urine Not Detected (Not Detect); Fentanyl, urine Not Detected (Not Detect); Opiate Screen Urine Not Detected (Not Detect); Phencyclidine Screen Urine Not Detected (Not Detect)
[2021-11-06 20:58] VITALS: BP 121/73; PULSE 67; RESP 14; TEMP 36.9; O2SAT 98
--- NOTE | 2021-11-06 20:59 | PC.NURSE ---
Patient refused an IV placement as well as normal saline which was ordered
[2021-11-06] MEDS: LORazepam 1 MG TABLET PO (21:25)
== END 2021-11-06 22:15 | disposition home or self-care (01) ==
PROVIDERS: Physician Assistant; Emergency Provider Emergency Medicine Emergency Medical Services
DX: R41.82 Altered mental status, unspecified (principal); I10 Essential (primary) hypertension; Z20.822 Contact with and (suspected) exposure to COVID-19
CPT/HCPCS: 70450; 80053; 80307; 81003; 82077; 83735; 85025; 87635; 96360; 99283; 99284

== ENCOUNTER 2021-11-19 07:52 | Outpatient (REF) | payer MEDICARE, MEDICAID, SELFPAY | END 2021-11-19 07:53 | disposition home or self-care (01) | LOC: HO.HOSX 07:52 | PROVIDERS: Visit Provider Physician Assistant | DX: Z13.89 Encounter for screening for other disorder (principal) ==